=== PATIENT | male | born 1985 | race Caucasian/White ===

== ENCOUNTER 2017-11-07 19:53 | Emergency (ER) | payer SELFPAY ==
[2017-11-07] MEDS ORDERED: NA CHLORIDE 0.9% 1,000 ML ONE (20:11)
[2017-11-07 20:36] LABS: Absolute Lymphocytes (CBC) 2.5 K/uL (0.7-4.9); Absolute Monocytes 0.6 K/uL (0.1-1.3); Absolute Neutrophil 5.7 K/uL (1.8-8.0); Basophils % 0.5 % (0-1.3); Eosinophils % 5.1 % (0-4.4); Hematocrit 39.3 % (39.6-49.0); Lymphocytes % 27.2 % (15.3-44.8); MCH 31.2 pg (27.0-35.0); MCV 91.7 fL (80-100); MPV 7.4 fL (7.6-11.3); Monocytes % 6.4 % (3.3-12.3); RBC Red Blood Cell Count 4.29 M/uL (4.33-5.43)
[2017-11-07 20:44] LABS: Bicarbonate 26 mEq/L (21-31); Glucose Level 99 mg/dL (65-120); Potassium 3.8 mEq/L (3.6-5.0); Sodium Level 137 mEq/L (135-145)
[2017-11-07 20:45] LABS: BUN Blood Urea Nitrogen 19 mg/dL (6-20)
[2017-11-07 20:52] LABS: Urine Bacteria NONE SEEN /HPF (NONE SEEN); Urine Culture Reflex Order NOT NEEDED; Urine RBC LOADED /HPF (NONE SEEN)
[2017-11-07 20:53] LABS: Urine Blood 3+ (NEG); Urine Glucose NEGATIVE (NEG); Urine Protein 2+ (NEG); Urine Specific Gravity 1.025 (1.005-1.030)
--- NOTE | 2017-11-07 21:32 | RAD REPORT ---
EXAM DESCRIPTION: CT - Abdomen Pelvis W Contrast - 11/07/2017 9:18 pm CLINICAL HISTORY: Abdominal pain, hematuria COMPARISON: None. TECHNIQUE: Biphasic, helical CT imaging of the abdomen and pelvis was performed following 100 ml non -ionic IV contrast. Oral contrast was given. All CT scans are performed using dose optimization technique as appropriate and may include automated exposure control or mA/KV adjustment according to patient size. FINDINGS: No suspicious findings in the lung bases. The liver, spleen, and pancreas show no suspicious findings. Gallbladder and biliary tree are also wi thout suspicious finding. Symmetric renal function is seen with no hydronephrosis or suspicious renal mass. No dilated bowel loops or bowel wall thickening. Appendix is normal. No free air, free fluid or infla mmatory stranding. No hernia, mass or bulky lymphadenopathy. The urinary bladder is without signific ant finding. No adrenal abnormality. No suspicious bony findings. IMPRESSION: Contrast enhanced CT abdomen and pelvis showing no significant or suspicious finding.
--- NOTE | 2017-11-07 21:38 | ER ---
Nurse's Notes [facility] Name: John Peralta Age: 32 yrs Sex: Male : 1985 Arrival Date: 11/07/2017 Time: 19:56 Bed 28 Private MD: Diagnosis: Hematuria Presentation: 11/07 19:58 Presenting complaint: Patient states: lower abd pain and blood in urine since 1500 la1 today. Transition of care: patient was not received from another setting of care. Onset of symptoms was November 07, 2017. Initial Sepsis Screen: Does the patient meet any 2 criteria? No. Patient's initial sepsis screen is negative. Does the patient have a suspected source of infection? No. Patient's initial sepsis screen is negative. Care prior to arrival: None. 19:58 Method Of Arrival: Ambulatory la1 19:58 Acuity: YUKI 3 la1 Historical: - Allergies: 19:58 Sulfa (Sulfonamide Antibiotics); la1 - PMHx: 19:58 None; la1 - Immunization history:: Adult Immunizations up to date. - Social history:: Smoking status: Patient uses tobacco products, smokes one pack cigarettes per day. Screenin:10 Abuse screen: Denies threats or abuse. Denies injuries from another. Nutritional lk1 screening: No deficits noted. Tuberculosis screening: No symptoms or risk factors identified. Fall Risk None identified. Assessment: 20:15 General: Appears in no apparent distress. Behavior is calm, cooperative, appropriate lk1 for age. Pain: Denies pain. Neuro: Level of Consciousness is awake, alert, obeys commands, Oriented to person, place, time, situation. Cardiovascular: Heart tones S1 S2 present Capillary refill is brisk Patient's skin is warm and dry. Respiratory: Airway is patent Respiratory effort is even, unlabored, Respiratory pattern is regular, symmetrical, Breath sounds are clear bilaterally. GI: Abdomen is non-distended, Bowel sounds present X 4 quads. : Reports dark urine starting a few hours ago at work and worsening after getting home. EENT: No signs and/or symptoms were reported regarding the EENT system. Derm: No signs and/or symptoms reported regarding the dermatologic system. Musculoskeletal: No signs and/or symptoms reported regarding the musculoskeletal system. Vital Signs: 19:58 BP 164 / 84; Pulse 87; Resp 19; Temp 98.1(TE); Pulse Ox 100% on R/A; Weight 102.06 kg; la1 Height 5 ft. 11 in. (180.34 cm); 21:30 BP 121 / 74; Pulse 75; Resp 14; Pulse Ox 100% on R/A; Pain 0/10; lk1 19:58 Body Mass Index 31.38 (102.06 kg, 180.34 cm) la1 ED Course: 19:56 Patient arrived in ED. es 19:58 Triage completed. la1 19:59 Arm band placed on right wrist. la1 20:01 Jean Ellison MD is Attending Physician. pkl 20:08 Elvira Dowell, ISABEL is Primary Nurse. lk1 20:20 Inserted saline lock: 22 gauge in right antecubital area, using aseptic technique. lk1 21:12 Patient has correct armband on for positive identification. Bed in low position. Call lk1 light in reach. 21:17 CT completed. Patient moved to CT via wheelchair. Patient moved back from CT. cw1 21:18 CT Abd/Pelvis - W/Contrast In Process Unspecified. EDMS 21:37 Deric Galicia MD is Referral Physician. pkl 22:14 No provider procedures requiring assistance completed. IV discontinued, intact, lk1 bleeding controlled, No redness/swelling at site. Pressure dressing applied. Administered Medications: 20:20 Drug: NS 0.9% 1000 ml Route: IV; Rate: 1000 ml; Site: right antecubital; lk1 21:40 Follow up: IV Status: Completed infusion lk1 21:40 Drug: Rocephin - (cefTRIAXone) 1 grams Route: IVPB; Infused Over: 30 mins; Site: right lk1 antecubital; 22:10 Follow up: Response: No adverse reaction; IV Status: Completed infusion lk1 Outcome: 21:37 Discharge ordered by . pkl 22:13 Discharged to home ambulatory. lk1 22:13 Condition: good 22:13 Discharge instructions given to patient, Instructed on discharge instructions, follow up and referral plans. medication usage, safety practices, Demonstrated understanding of instructions, follow-up care, medications, Prescriptions given X 1. 22:16 Patient left the ED. lk1 Signatures: Dispatcher [employer] EDMS Jean Ellison MD MD pkl Beverly Leo Crystal cw1 Kirit Velazco RN RN la Elvira Dowell, RN RN lk1
--- NOTE | 2017-11-07 21:38 | EDPHYS ---
Physician Documentation [facility] Name: John Peralta Age: 32 yrs Sex: Male : 1985 Arrival Date: 11/07/2017 Time: 19:56 Bed 28 Private MD: ED Physician Jean Ellison HPI: 11/07 20:09 This 32 yrs old Male presents to ER via Ambulatory with complaints of BLOOD pkl IN URINE. 20:09 The patient presents with urinary symptoms, urinary frequency, bloody urine. Onset: The pkl symptoms/episode began/occurred just prior to arrival, 4 hour(s) ago. Associated signs and symptoms: The patient has no apparent associated signs or symptoms. The patient has experienced a previous episode, approximately 4 years ago. Historical: - Allergies: 19:58 Sulfa (Sulfonamide Antibiotics); la1 - PMHx: 19:58 None; la1 - Immunization history:: Adult Immunizations up to date. - Social history:: Smoking status: Patient uses tobacco products, smokes one pack cigarettes per day. ROS: 20:09 Eyes: Negative for injury, pain, redness, and discharge, ENT: Negative for injury, pkl pain, and discharge, Neck: Negative for injury, pain, and swelling, Cardiovascular: Negative for chest pain, palpitations, and edema, Respiratory: Negative for shortness of breath, cough, wheezing, and pleuritic chest pain, Abdomen/GI: Negative for abdominal pain, nausea, vomiting, diarrhea, and constipation, Back: Negative for injury and pain. 20:09 : Positive for urinary symptoms, urinary frequency, hematuria. 20:09 MS/extremity: Negative for acute changes. 20:09 Skin: Negative for rash. 20:09 Neuro: Negative for altered mental status. Exam: 20:09 Head/Face: Normocephalic, atraumatic. Eyes: Pupils equal round and reactive to light, pkl extra-ocular motions intact. Lids and lashes normal. Conjunctiva and sclera are non-icteric and not injected. Cornea within normal limits. Periorbital areas with no swelling, redness, or edema. ENT: Nares patent. No nasal discharge, no septal abnormalities noted. Tympanic membranes are normal and external auditory canals are clear. Oropharynx with no redness, swelling, or masses, exudates, or evidence of obstruction, uvula midline. Mucous membranes moist. Neck: Trachea midline, no thyromegaly or masses palpated, and no cervical lymphadenopathy. Supple, full range of motion without nuchal rigidity, or vertebral point tenderness. No Meningismus. Chest/axilla: Normal chest wall appearance and motion. Nontender with no deformity. No lesions are appreciated. Cardiovascular: Regular rate and rhythm with a normal S1 and S2. No gallops, murmurs, or rubs. Normal PMI, no JVD. No pulse deficits. Respiratory: Lungs have equal breath sounds bilaterally, clear to auscultation and percussion. No rales, rhonchi or wheezes noted. No increased work of breathing, no retractions or nasal flaring. Abdomen/GI: Soft, non-tender, with normal bowel sounds. No distension or tympany. No guarding or rebound. No evidence of tenderness throughout. Back: No spinal tenderness. No costovertebral tenderness. Full range of motion. Skin: Warm, dry with normal turgor. Normal color with no rashes, no lesions, and no evidence of cellulitis. MS/ Extremity: Pulses equal, no cyanosis. Neurovascular intact. Full, normal range of motion. Neuro: Awake and alert, GCS 15, oriented to person, place, time, and situation. Cranial nerves II-XII grossly intact. Motor strength 5/5 in all extremities. Sensory grossly intact. Cerebellar exam normal. Normal gait. 20:09 : Bladder: is normal, non-distended, non-tender. Vital Signs: 19:58 BP 164 / 84; Pulse 87; Resp 19; Temp 98.1(TE); Pulse Ox 100% on R/A; Weight 102.06 kg; la1 Height 5 ft. 11 in. (180.34 cm); 21:30 BP 121 / 74; Pulse 75; Resp 14; Pulse Ox 100% on R/A; Pain 0/10; lk1 19:58 Body Mass Index 31.38 (102.06 kg, 180.34 cm) la1 MDM: 20:01 Patient medically screened. pkl 21:36 Data reviewed: vital signs, nurses notes, lab test result(s), radiologic studies, CT pkl scan. 11/07 20:08 Order name: CBC with Diff; Complete Time: 20:43 pkl 11/07 20:08 Order name: Chem 7; Complete Time: 20:45 pkl 11/07 20:08 Order name: Urine Culture lk1 11/07 20:08 Order name: Urine Microscopic Only; Complete Time: 21:24 lk1 11/07 20:49 Order name: Urine Dipstick--Ancillary (enter results) 2 11/07 20:50 Order name: Urine Dipstick-Ancillary; Complete Time: 21:24 EDMS 11/07 20:09 Order name: IV Start; Complete Time: 20:39 lk1 11/07 20:46 Order name: CT Abd/Pelvis - W/Contrast; Complete Time: 21:34 pkl Administered Medications: 20:20 Drug: NS 0.9% 1000 ml Route: IV; Rate: 1000 ml; Site: right antecubital; lk1 21:40 Follow up: IV Status: Completed infusion lk1 21:40 Drug: Rocephin - (cefTRIAXone) 1 grams Route: IVPB; Infused Over: 30 mins; Site: right lk1 antecubital; 22:10 Follow up: Response: No adverse reaction; IV Status: Completed infusion lk1 Disposition: 11/07/17 21:37 Discharged to Home. Impression: Hematuria. - Condition is Stable. - Prescriptions for Cipro 500 mg Oral Tablet - take 1 tablet by ORAL route every 12 hours for 5 days; 10 tablet. - Medication Reconciliation Form, Thank You Letter, Antibiotic Education, Prescription Opioid Use form. - Follow up: Deric Galicia MD; When: 2 - 3 days; Reason: Re-evaluation by your physician. - Problem is new. - Symptoms have improved. Signatures: Dispatcher [employer] [facility] Jean Ellison MD MD pkl Kirit Velazco RN RN la1 Elvira Dowell RN RN lk1 Corrections: (The following items were deleted from the chart) 22:16 21:37 11/07/2017 21:37 Discharged to Home. Impression: Hematuria. Condition is Stable. lk1 Forms are Medication Reconciliation Form, Thank You Letter, Antibiotic Education, Prescription Opioid Use. Follow up: Deric Galicia; When: 2 - 3 days; Reason: Re-evaluation by your physician. Problem is new. Symptoms have improved. pkl
[2017-11-07] MEDS ORDERED: CEFTRIAXONE/SWI 1gm 1 GM/10 ML SYR ONE (21:45)
== END 2017-11-07 22:16 | disposition home or self-care (01) ==
LOC: ER 19:53
DX: R31.9 Hematuria, unspecified (principal); F17.210 Nicotine dependence, cigarettes, uncomplicated; Z88.2 Allergy status to sulfonamides
CPT/HCPCS: 36415; 74177; 80048; 81003; 81015; 85025; 87086; 87088; 96361; 96365; 99284; J0696; J7030; Q9967

== ENCOUNTER 2017-12-11 10:25 | Emergency (ER) | payer SELFPAY ==
--- NOTE | 2017-12-11 10:40 | EDPHYS ---
Physician Documentation [facility] Name: John Peralta Age: 32 yrs Sex: Male : 1985 Arrival Date: 12/11/2017 Time: 10:27 Bed 12 Private MD: None, None ED Physician Emil Lopez HPI: 12/11 10:37 This 32 yrs old Male presents to ER via Ambulatory with complaints of rn Toothache. 10:37 The patient presents with pain. The problem is located in the mouth. Onset: The rn symptoms/episode began/occurred yesterday. Duration: The symptoms are intermittent. Severity of symptoms: At their worst the symptoms were moderate, in the emergency department the symptoms are unchanged. The patient has experienced similar episodes in the past. Reports left upper toothache for a couple of days, no fever, has dentist appt for December 21, no swelling, hurts to chew.. Historical: - Allergies: 10:30 Sulfa (Sulfonamide Antibiotics); sv - Home Meds: 10:30 None [Active]; sv - PMHx: 10:30 None; sv - PSHx: 10:30 None; sv - Immunization history:: Adult Immunizations up to date. - Social history:: Smoking status: Patient uses tobacco products, smokes one pack cigarettes per day. - Ebola Screening: : No symptoms or risks identified at this time. - Family history:: not pertinent. - Hospitalizations: : No recent hospitalization is reported. ROS: 10:37 Constitutional: Negative for fever, chills, and weight loss, ENT: + left upper dental rn pain Exam: 10:37 Constitutional: This is a well developed, well nourished patient who is awake, alert, rn and in no acute distress. ENT: No oral evidence of abscess, + poor general dentition, + cracked teeth throughout Vital Signs: 10:30 BP 125 / 80; Pulse 77; Resp 18; Temp 98.1; Pulse Ox 98% ; Weight 99.79 kg; Height 5 ft. sv 11 in. (180.34 cm); Pain 8/10; 10:30 Body Mass Index 30.68 (99.79 kg, 180.34 cm) sv MDM: 10:32 Patient medically screened. rn 10:37 Differential diagnosis: dental caries. Data reviewed: vital signs, nurses notes, and as rn a result, I will discharge patient. Counseling: I had a detailed discussion with the patient and/or guardian regarding: the historical points, exam findings, and any diagnostic results supporting the discharge/admit diagnosis, the need for outpatient follow up, to return to the emergency department if symptoms worsen or persist or if there are any questions or concerns that arise at home. Special discussion: I discussed with the patient/guardian in detail that at this point there is no indication for admission to the hospital. It is understood, however, that if the symptoms persist or worsen the patient needs to return immediately for re-evaluation. Based on the history and exam findings, there is no indication for further emergent testing or inpatient evaluation. I discussed with the patient/guardian the need to see a dentist for further evaluation of the symptoms. Administered Medications: No medications were administered Disposition: 12/11/17 10:40 Discharged to Home. Impression: Dental caries. - Condition is Stable. - Discharge Instructions: Dental Pain. - Prescriptions for Clindamycin HCl 300 mg Oral Capsule - take 1 capsule by ORAL route every 6 hours for 10 days; 40 capsule. Ibuprofen 800 mg Oral Tablet - take 1 tablet by ORAL route every 12 hours As needed take with food; 20 tablet. - Work release form, Medication Reconciliation Form, Thank You Letter, Antibiotic Education, Prescription Opioid Use form. - Follow up: Private Physician; When: As needed; Reason: Recheck today's complaints, Re-evaluation by your physician. - Problem is an ongoing problem. - Symptoms have improved. Signatures: Romi Weems RN RN Emil Lopez MD MD rn Corrections: (The following items were deleted from the chart) 11:11 10:40 12/11/2017 10:40 Discharged to Home. Impression: Dental caries. Condition is sv Stable. Forms are Medication Reconciliation Form, Thank You Letter, Antibiotic Education, Prescription Opioid Use. Follow up: Private Physician; When: As needed; Reason: Recheck today's complaints, Re-evaluation by your physician. Problem is an ongoing problem. Symptoms have improved. rn
--- NOTE | 2017-12-11 10:40 | ER ---
Nurse's Notes [facility] Name: John Peralta Age: 32 yrs Sex: Male : 1985 Arrival Date: 12/11/2017 Time: 10:27 Bed 12 Private MD: None, None Diagnosis: Dental caries Presentation: 12/11 10:29 Presenting complaint: Patient states: "Part of my tooth broke off a couple of weeks sv ago.". Transition of care: patient was not received from another setting of care. Onset of symptoms was November 2017. Risk Assessment: Do you want to hurt yourself or someone else? Patient reports no desire to harm self or others. Initial Sepsis Screen: Does the patient meet any 2 criteria? No. Patient's initial sepsis screen is negative. Does the patient have a suspected source of infection? No. Patient's initial sepsis screen is negative. Care prior to arrival: None. 10:29 Method Of Arrival: Ambulatory sv 10:29 Acuity: YUKI 4 sv Triage Assessment: 10:29 General: Appears in no apparent distress. comfortable, Behavior is calm, cooperative, sv appropriate for age. Pain: Complains of pain in mouth Pain currently is 8 out of 10 on a pain scale. Pain began "a couple of weeks ago". EENT: Reports tooth pain. Neuro: Level of Consciousness is awake, alert, obeys commands, Oriented to person, place, time, situation, Moves all extremities. Full function Gait is steady. Respiratory: Respiratory effort is even, unlabored, Respiratory pattern is regular, symmetrical. GI: No signs and/or symptoms were reported involving the gastrointestinal system. : No signs and/or symptoms were reported regarding the genitourinary system. Derm: Skin is pink, warm \\T\\ dry. Musculoskeletal: No signs and/or symptoms reported regarding the musculoskeletal system. Historical: - Allergies: 10:30 Sulfa (Sulfonamide Antibiotics); sv - Home Meds: 10:30 None [Active]; sv - PMHx: 10:30 None; sv - PSHx: 10:30 None; sv - Immunization history:: Adult Immunizations up to date. - Social history:: Smoking status: Patient uses tobacco products, smokes one pack cigarettes per day. - Ebola Screening: : No symptoms or risks identified at this time. - Family history:: not pertinent. - Hospitalizations: : No recent hospitalization is reported. Screenin:35 Abuse screen: Denies threats or abuse. Denies injuries from another. Nutritional sv screening: No deficits noted. Tuberculosis screening: No symptoms or risk factors identified. Fall Risk None identified. Vital Signs: 10:30 BP 125 / 80; Pulse 77; Resp 18; Temp 98.1; Pulse Ox 98% ; Weight 99.79 kg; Height 5 ft. sv 11 in. (180.34 cm); Pain 8/10; 10:30 Body Mass Index 30.68 (99.79 kg, 180.34 cm) sv ED Course: 10:27 Patient arrived in ED. mr 10:27 None, None is Private Physician. mr 10:29 Triage completed. sv 10:30 Arm band placed on left wrist. sv 10:32 Emil Lopez MD is Attending Physician. rn 10:35 Patient has correct armband on for positive identification. Call light in reach. Door sv closed. 10:50 No provider procedures requiring assistance completed. Patient did not have IV access sv during this emergency room visit. 11:11 Romi Weems RN is Primary Nurse. sv Administered Medications: No medications were administered Outcome: 10:40 Discharge ordered by . rn 10:50 Patient left the ED. sv 10:50 Discharged to home ambulatory. sv 10:50 Condition: stable 10:50 Discharge instructions given to patient, Instructed on discharge instructions, follow up and referral plans. medication usage, Demonstrated understanding of instructions, follow-up care, medications, Prescriptions given X 2. Signatures: Romi Weems RN RN Ana Luisa Hernandez mr Emil Lopez MD MD overnight babysitter: (The following items were deleted from the chart) 12:02 11:11 Patient left the ED. sv sv
== END 2017-12-11 11:11 | disposition home or self-care (01) ==
LOC: ER 10:25
DX: K02.9 Dental caries, unspecified (principal); F17.210 Nicotine dependence, cigarettes, uncomplicated; Z88.2 Allergy status to sulfonamides
CPT/HCPCS: 99282

== ENCOUNTER 2017-12-27 22:00 | Emergency (ER) | payer SELFPAY ==
[2017-12-27] MEDS ORDERED: LIDOCAINE 1% MPF 5 ML VIAL ONE (22:48)
--- NOTE | 2017-12-27 23:24 | EDPHYS ---
Physician Documentation [facility] Name: John Peralta Age: 32 yrs Sex: Male : 1985 Arrival Date: 12/27/2017 Time: 22:04 Bed 24 Private MD: ED Physician Puneet Key HPI: 12/27 23:02 This 32 yrs old Male presents to ER via Ambulatory with complaints of jr8 swelling. 23:02 The patient presents with an abscess of the buttocks. Description: The affected area is jr8 small, well demarcated, draining, erythematous, swollen, tense, warm. Onset: The symptoms/episode began/occurred 2 day(s) ago. Possible cause(s): unknown. Associated signs and symptoms: The patient has no apparent associated signs or symptoms. Modifying factors: the symptoms are alleviated by nothing, the symptoms are aggravated by pressure, sitting, squeezing the lesion and expressing the contents, touching. Severity of symptoms: At their worst the symptoms were mild, in the emergency department the symptoms are unchanged. The patient has not experienced similar symptoms in the past. The patient has not recently seen a physician. Historical: - Allergies: 22:19 Sulfa (Sulfonamide Antibiotics); aj1 - Home Meds: 22:19 Amoxicillin Oral [Active]; aj1 - PMHx: 22:19 None; aj1 - PSHx: 22:19 None; aj1 - Immunization history:: Flu vaccine is not up to date. - Social history:: Smoking status: Patient uses tobacco products, smokes one pack cigarettes per day. - Ebola Screening: : Patient denies travel to an Ebola-affected area in the 21 days before illness onset. ROS: 23:02 Eyes: Negative for injury, pain, redness, and discharge, ENT: Negative for injury, jr8 pain, and discharge, Neck: Negative for injury, pain, and swelling, Cardiovascular: Negative for chest pain, palpitations, and edema, Respiratory: Negative for shortness of breath, cough, wheezing, and pleuritic chest pain, Abdomen/GI: Negative for abdominal pain, nausea, vomiting, diarrhea, and constipation, Back: Negative for injury and pain, MS/Extremity: Negative for injury and deformity, Neuro: Negative for headache, weakness, numbness, tingling, and seizure. 23:02 Skin: Positive for abscess, of the buttocks. Exam: 23:02 Cardiovascular: Regular rate and rhythm with a normal S1 and S2. No gallops, murmurs, jr8 or rubs. Normal PMI, no JVD. No pulse deficits. Respiratory: Lungs have equal breath sounds bilaterally, clear to auscultation and percussion. No rales, rhonchi or wheezes noted. No increased work of breathing, no retractions or nasal flaring. Back: No spinal tenderness. No costovertebral tenderness. Full range of motion. MS/ Extremity: Pulses equal, no cyanosis. Neurovascular intact. Full, normal range of motion. Neuro: Awake and alert, GCS 15, oriented to person, place, time, and situation. Cranial nerves II-XII grossly intact. Motor strength 5/5 in all extremities. Sensory grossly intact. Cerebellar exam normal. Normal gait. 23:02 Skin: abscess, that is small, approximately 2.5 cm(s), of the left upper gluteral cleft , with drainage, with fluctuance, with induration, with pointing. Vital Signs: 22:19 BP 142 / 89; Pulse 74; Resp 18; Temp 98.2; Pulse Ox 99% on R/A; Weight 102.06 kg (R); aj1 Height 5 ft. 11 in. (180.34 cm) (R); Pain 10/10; 23:32 BP 138 / 64; Pulse 72; Resp 18; Pulse Ox 100% ; kr2 22:19 Body Mass Index 31.38 (102.06 kg, 180.34 cm) aj Procedures: 23:22 I \T\ D: Incision and drainage was performed for an abscess of the right buttocks Prepped jr8 with Betadine, Anesthetized with 3 ml's 1% Lidocaine. Incised with #10 blade. Drained small amount purulent fluid. serosanguinous fluid. bloody fluid. Loculations removed. Abscess cavity explored. Packed with iodoform gauze, Dressing: sterile 4x4 gauze, the patient tolerated the procedure well. MDM: 22:32 Patient medically screened. [facility] 23:22 Data reviewed: vital signs, nurses notes, and as a result, I will discharge patient. [facility] Data interpreted: Pulse oximetry: on room air is 99 %. Interpretation: normal. Counseling: I had a detailed discussion with the patient and/or guardian regarding: the historical points, exam findings, and any diagnostic results supporting the discharge/admit diagnosis, the need for outpatient follow up, a family practitioner, to return to the emergency department if symptoms worsen or persist or if there are any questions or concerns that arise at home. 12/27 22:50 Order name: I\T\D Setup; Complete Time: 23:05 jr8 Administered Medications: 23:18 Drug: Lidocaine (1 %) 5 mg {Note: administered by PA. Andrew} Route: Infiltration; kr2 23:26 Drug: TORadol 60 mg Route: IM; Site: right gluteus; kr2 23:33 Follow up: Response: No adverse reaction kr2 Disposition: 12/28 09:29 Co-signature as Attending Physician, Puneet Key MD I agree with the assessment and georgina plan of care. Disposition: 12/27/17 23:23 Discharged to Home. Impression: Cutaneous abscess of buttock. - Condition is Stable. - Discharge Instructions: Abscess, Incision and Drainage. - Prescriptions for Clindamycin HCl 300 mg Oral Capsule - take 1 capsule by ORAL route every 6 hours for 10 days; 40 capsule. - Medication Reconciliation Form, Thank You Letter, Antibiotic Education, Prescription Opioid Use form. - Follow up: Private Physician; When: 48 Hours; Reason: Wound Recheck, Recheck today's complaints, Continuance of care, Re-evaluation by your physician. - Problem is new. - Symptoms have improved. Signatures: Amada Costello, RN RN aj1 Puneet Key MD MD cha Roszak, Josh, PA PA jr8 Isis Kim RN RN kr2 Corrections: (The following items were deleted from the chart) 12/27 23:34 23:23 12/27/2017 23:23 Discharged to Home. Impression: Cutaneous abscess of buttock. kr2 Condition is Stable. Forms are Medication Reconciliation Form, Thank You Letter, Antibiotic Education, Prescription Opioid Use. Follow up: Private Physician; When: 48 Hours; Reason: Wound Recheck, Recheck today's complaints, Continuance of care, Re-evaluation by your physician. Problem is new. Symptoms have improved. jr8
--- NOTE | 2017-12-27 23:24 | ER ---
Nurse's Notes [facility] Name: John Peralta Age: 32 yrs Sex: Male : 1985 Arrival Date: 12/27/2017 Time: 22:04 Bed 24 Private MD: Diagnosis: Cutaneous abscess of buttock Presentation: 12/27 22:16 Presenting complaint: Patient states: "I have a boil or a spider bite on my lower back, aj1 It started yesterday. I soaked in a warm bath and it started draining. It hurts a lot when I sit." Small abscess noted to gluteal cleft. Patient states that he is currently taking Amoxicillin because he recently had 4 teeth removed. Transition of care: patient was not received from another setting of care. Onset of symptoms was December 26, 2017. Risk Assessment: Do you want to hurt yourself or someone else? Patient reports no desire to harm self or others. Initial Sepsis Screen: Does the patient meet any 2 criteria? No. Patient's initial sepsis screen is negative. Does the patient have a suspected source of infection? No. Patient's initial sepsis screen is negative. Care prior to arrival: None. 22:16 Method Of Arrival: Ambulatory aj1 22:16 Acuity: YUKI 4 aj1 Triage Assessment: 22:19 General: Appears in no apparent distress. comfortable, Behavior is calm, cooperative, aj1 appropriate for age. Pain: Complains of pain in coccyx Pain currently is 10 out of 10 on a pain scale. Neuro: Level of Consciousness is awake, alert, obeys commands. Cardiovascular: Patient's skin is warm and dry. Respiratory: Airway is patent Respiratory effort is even, unlabored, Respiratory pattern is regular, symmetrical. Derm: Abscess located on coccyx is nickel sized, has purulent drainage, is red, is raised. Historical: - Allergies: 22:19 Sulfa (Sulfonamide Antibiotics); aj1 - Home Meds: 22:19 Amoxicillin Oral [Active]; aj1 - PMHx: 22:19 None; aj1 - PSHx: 22:19 None; aj1 - Immunization history:: Flu vaccine is not up to date. - Social history:: Smoking status: Patient uses tobacco products, smokes one pack cigarettes per day. - Ebola Screening: : Patient denies travel to an Ebola-affected area in the 21 days before illness onset. Screenin:23 Abuse screen: Denies threats or abuse. Denies injuries from another. Nutritional kr2 screening: No deficits noted. Tuberculosis screening: No symptoms or risk factors identified. Fall Risk None identified. Assessment: 22:30 General: Appears in no apparent distress. uncomfortable, well groomed, well developed, kr2 well nourished, Behavior is calm, cooperative, appropriate for age. Pain: Complains of pain in coccyx Pain radiates to buttocks Pain currently is 5 out of 10 on a pain scale. at worst was 10 out of 10 on a pain scale. Quality of pain is described as sharp, tender, Is continuous, Alleviated by rest, repositioning, heat application, Aggravated by sitting Noted to be grimacing. Neuro: Level of Consciousness is awake, alert, obeys commands, Oriented to person, place, time, situation, Appropriate for age. Cardiovascular: Capillary refill < 3 seconds in bilateral fingers Patient's skin is warm and dry. Respiratory: Airway is patent Respiratory effort is even, unlabored, Respiratory pattern is regular, symmetrical. GI: Abdomen is flat, non-distended. : No signs and/or symptoms were reported regarding the genitourinary system. Derm: Skin is healthy with good turgor, Skin is pink, warm \\T\\ dry. Abscess located on coccyx is quarter sized, has no drainage, is red, is raised. Musculoskeletal: Circulation, motion, and sensation intact. 23:33 Reassessment: Patient appears in no apparent distress at this time. Patient and/or kr2 family updated on plan of care and expected duration. Pain level reassessed. Patient is alert, oriented x 3, equal unlabored respirations, skin warm/dry/pink. Wound packed and dressed by BRE Morales. Vital Signs: 22:19 BP 142 / 89; Pulse 74; Resp 18; Temp 98.2; Pulse Ox 99% on R/A; Weight 102.06 kg (R); aj1 Height 5 ft. 11 in. (180.34 cm) (R); Pain 10/10; 23:32 BP 138 / 64; Pulse 72; Resp 18; Pulse Ox 100% ; kr2 22:19 Body Mass Index 31.38 (102.06 kg, 180.34 cm) aj1 ED Course: 22:04 Patient arrived in ED. al2 22:18 Triage completed. aj1 22:19 Arm band placed on Patient placed in an exam room. aj1 22:27 Isis Kim, RN is Primary Nurse. kr2 22:29 Suresh Ivory PA is PHCP. jr8 22:29 Puneet Key MD is Attending Physician. jr8 22:30 Patient has correct armband on for positive identification. Bed in low position. Call kr2 light in reach. Side rails up X 1. Pulse ox on. NIBP on. 23:28 No provider procedures requiring assistance completed. Patient did not have IV access kr2 during this emergency room visit. Administered Medications: 23:18 Drug: Lidocaine (1 %) 5 mg {Note: administered by BRE Morales.} Route: Infiltration; kr2 23:26 Drug: TORadol 60 mg Route: IM; Site: right gluteus; kr2 23:33 Follow up: Response: No adverse reaction kr2 Outcome: 23:23 Discharge ordered by MD. jr8 23:28 Discharged to home ambulatory. kr2 23:28 Condition: good 23:28 Discharge instructions given to patient, Instructed on discharge instructions, follow up and referral plans. medication usage, Demonstrated understanding of instructions, follow-up care, medications, Prescriptions given X 1. 23:34 Patient left the ED. kr2 Signatures: Amada Costello RN RN aj1 Suresh Ivory PA PA jr8 Isis Kim, RN RN kr2 Lanie Reyes al2 Corrections: (The following items were deleted from the chart) 22:19 22:16 Presenting complaint: Patient states: "I have a boil or a spider bite on my lower aj1 back, It started yesterday. I soaked in a warm bath and it started draining. It hurts a lot when I sit." Small abscess noted to gluteal cleft aj1
[2017-12-27] MEDS ORDERED: KETOROLAC 30 MG/ML INJ ONE (23:27)
== END 2017-12-27 23:34 | disposition home or self-care (01) ==
LOC: ER 22:00
PROC: 0H98XZZ Drainage of Buttock Skin, External Approach (ICD-10-PCS; principal; 2017-12-27)
DX: L02.31 Cutaneous abscess of buttock (principal); F17.210 Nicotine dependence, cigarettes, uncomplicated; Z88.2 Allergy status to sulfonamides
CPT/HCPCS: 96372; 99283

== ENCOUNTER 2018-01-12 11:51 | Emergency (ER) | payer SELFPAY ==
--- NOTE | 2018-01-12 13:07 | ER ---
Nurse's Notes [facility] Name: John Peralta Age: 32 yrs Sex: Male : 1985 Arrival Date: 01/12/2018 Time: 11:53 Bed 12 Private MD: None, None Diagnosis: Dental caries on smooth surface penetrating into dentin;Dental caries on smooth surface penetrating into pulp Presentation: 01/12 12:02 Presenting complaint: Patient states: Broken tooth with pain to right lower jaw for 2 aj days. Transition of care: patient was not received from another setting of care. Onset of symptoms was January 10, 2018. Risk Assessment: Do you want to hurt yourself or someone else? Patient reports no desire to harm self or others. Initial Sepsis Screen: Does the patient meet any 2 criteria? No. Patient's initial sepsis screen is negative. Does the patient have a suspected source of infection? No. Patient's initial sepsis screen is negative. Care prior to arrival: None. 12:02 Method Of Arrival: Ambulatory 12:02 Acuity: YUKI 5 aj Triage Assessment: 12:03 General: Appears in no apparent distress. comfortable, Behavior is calm, cooperative, aj appropriate for age. Pain: Complains of pain in right mandible. EENT: Reports pain in right mandible. Neuro: Level of Consciousness is awake, alert, obeys commands, Oriented to person, place, time, situation, Appropriate for age. Respiratory: Airway is patent Respiratory effort is even, unlabored, Respiratory pattern is regular, symmetrical. Derm: Skin is intact, is healthy with good turgor, Skin is pink, warm \T\ dry. normal. Historical: - Allergies: 12:03 Sulfa (Sulfonamide Antibiotics); aj - Home Meds: 12:03 None [Active]; aj - PMHx: 12:03 None; aj - PSHx: 12:03 None; aj - Immunization history:: Adult Immunizations up to date. - Social history:: Smoking status: Patient uses tobacco products, smokes one pack cigarettes per day. - Ebola Screening: : Patient negative for fever greater than or equal to 101.5 degrees Fahrenheit, and additional compatible Ebola Virus Disease symptoms Patient denies exposure to infectious person Patient denies travel to an Ebola-affected area in the 21 days before illness onset No symptoms or risks identified at this time. Screenin:04 Abuse screen: Denies threats or abuse. Denies injuries from another. Nutritional ss screening: No deficits noted. Tuberculosis screening: Never had TB. Fall Risk None identified. Assessment: 13:04 General: Appears in no apparent distress. comfortable, Behavior is calm, cooperative, ss Denies fever, feeling ill, fatigue, chills. Pain: Complains of pain in right mandible. Neuro: Level of Consciousness is awake, alert, obeys commands, Oriented to person, place, time, situation. Cardiovascular: Capillary refill < 3 seconds is brisk in bilateral fingers. Respiratory: Airway is patent Respiratory effort is even, unlabored, Respiratory pattern is regular, symmetrical. GI: No signs and/or symptoms were reported involving the gastrointestinal system. EENT: Nares are clear Oral mucosa is moist. Derm: Skin is intact, is healthy with good turgor, Skin is dry, Skin is pink, warm \T\ dry. normal. Musculoskeletal: Circulation, motion, and sensation intact. Capillary refill < 3 seconds, is brisk, in bilateral fingers. Range of motion: intact in all extremities, Swelling absent. Vital Signs: 12:03 BP 128 / 77; Pulse 89; Resp 19; Temp 98.6; Pulse Ox 99% on R/A; Weight 104.33 kg; aj Height 5 ft. 11 in. (180.34 cm); 12:03 Body Mass Index 32.08 (104.33 kg, 180.34 cm) aj ED Course: 11:53 Patient arrived in ED. sb2 11:54 None, None is Private Physician. sb2 12:03 Triage completed. aj 12:03 Arm band placed on left wrist. Patient placed in waiting room, Patient notified of wait aj time. 12:46 Adia Stahl FNP-C is [facility]. snw 12:46 Emil Lopez MD is Attending Physician. snw 13:03 Sara Bartlett RN is Primary Nurse. ss 13:04 Patient has correct armband on for positive identification. Bed in low position. Call ss light in reach. 13:04 No provider procedures requiring assistance completed. Patient did not have IV access ss during this emergency room visit. Administered Medications: 13:15 Drug: [place] 10 mg-325 mg 1 tabs Route: PO; ss 13:39 Follow up: Response: Adverse reaction, Physician notified; Pain is decreased ss 13:15 Drug: Zofran 4 mg Route: PO; ss 13:39 Follow up: Response: No adverse reaction 13:21 Drug: Clindamycin 600 mg {Note: 2 mL given in R gluteus and 2 mL given in R gluteus.} ss Route: IM; Site: left gluteus; 13:39 Follow up: Response: No adverse reaction ss Outcome: 13:06 Discharge ordered by MD. reyes 13:39 Discharged to home ambulatory, patient reports ride [facility] 13:39 Condition: good 13:39 Instructed on discharge instructions, follow up and referral plans. medication usage, Demonstrated understanding of instructions, follow-up care, medications, Prescriptions given X 3. 13:40 Patient left the ED. Signatures: Rachele Jimenez, RN RN Adia Rendon, ELEVATOR SERVICE MECH[employer]IC-C ELEVATOR SERVICE MECHANIC-Cs[employer] Sara Bartlett RN RN ss Billeau, Sheri sb2
--- NOTE | 2018-01-12 13:07 | EDPHYS ---
Physician Documentation [facility] Name: John Peralta Age: 32 yrs Sex: Male : 1985 Arrival Date: 01/12/2018 Time: 11:53 Bed 12 Private MD: None, None ED Physician mEil Lopez HPI: 01/12 13:11 This 32 yrs old Male presents to ER via Ambulatory with complaints of snw Toothache. 13:11 The patient presents with lost tooth/teeth, pain. The problem is located in the right snw mandible. Onset: The symptoms/episode began/occurred suddenly, 2 day(s) ago, and became worse. Duration: The symptoms are continuous. Associated signs and symptoms: Pertinent positives: inability to eat, pain. Severity of symptoms: At their worst the symptoms were moderate, severe. The patient has experienced similar episodes in the past. It is unknown whether or not the patient has recently seen a physician. + smoker. Historical: - Allergies: 12:03 Sulfa (Sulfonamide Antibiotics); aj - Home Meds: 12:03 None [Active]; aj - PMHx: 12:03 None; aj - PSHx: 12:03 None; aj - Immunization history:: Adult Immunizations up to date. - Social history:: Smoking status: Patient uses tobacco products, smokes one pack cigarettes per day. - Ebola Screening: : Patient negative for fever greater than or equal to 101.5 degrees Fahrenheit, and additional compatible Ebola Virus Disease symptoms Patient denies exposure to infectious person Patient denies travel to an Ebola-affected area in the 21 days before illness onset No symptoms or risks identified at this time. ROS: 13:11 Constitutional: Negative for fever, chills, and weight loss, Eyes: Negative for injury, snw pain, redness, and discharge, ENT: Negative for injury and discharge, + dental pain Neck: Negative for injury, pain, and swelling, Cardiovascular: Negative for chest pain, palpitations, and edema, Respiratory: Negative for shortness of breath, cough, wheezing, and pleuritic chest pain, Abdomen/GI: Negative for abdominal pain, nausea, vomiting, diarrhea, and constipation, Back: Negative for injury and pain, : Negative for injury, bleeding, discharge, and swelling, MS/Extremity: Negative for injury and deformity, Skin: Negative for injury, rash, and discoloration, Neuro: Negative for headache, weakness, numbness, tingling, and seizure. Exam: 13:11 Constitutional: This is a well developed, well nourished patient who is awake, alert, snw and in no acute distress. Head/Face: Normocephalic, atraumatic. Eyes: Pupils equal round and reactive to light, extra-ocular motions intact. Lids and lashes normal. Conjunctiva and sclera are non-icteric and not injected. Cornea within normal limits. Periorbital areas with no swelling, redness, or edema. ENT: Nares patent. No nasal discharge, no septal abnormalities noted. Tympanic membranes are normal and external auditory canals are clear. Oropharynx with no redness, swelling, or masses, exudates, or evidence of obstruction, uvula midline. Mucous membranes moist. Dental caries and missing teeth to upper and lower mandibular areas diffusely, tenderness to right lower 2nd molar Neck: Trachea midline, no thyromegaly or masses palpated, and no cervical lymphadenopathy. Supple, full range of motion without nuchal rigidity, or vertebral point tenderness. No Meningismus. Chest/axilla: Normal chest wall appearance and motion. Nontender with no deformity. No lesions are appreciated. Cardiovascular: Regular rate and rhythm with a normal S1 and S2. No gallops, murmurs, or rubs. Normal PMI, no JVD. No pulse deficits. Respiratory: Lungs have equal breath sounds bilaterally, clear to auscultation and percussion. No rales, rhonchi or wheezes noted. No increased work of breathing, no retractions or nasal flaring. Abdomen/GI: Soft, non-tender, with normal bowel sounds. No distension or tympany. No guarding or rebound. No evidence of tenderness throughout. Back: No spinal tenderness. No costovertebral tenderness. Full range of motion. Skin: Warm, dry with normal turgor. Normal color with no rashes, no lesions, and no evidence of cellulitis. MS/ Extremity: Pulses equal, no cyanosis. Neurovascular intact. Full, normal range of motion. Neuro: Awake and alert, GCS 15, oriented to person, place, time, and situation. Cranial nerves II-XII grossly intact. Motor strength 5/5 in all extremities. Sensory grossly intact. Cerebellar exam normal. Normal gait. Vital Signs: 12:03 BP 128 / 77; Pulse 89; Resp 19; Temp 98.6; Pulse Ox 99% on R/A; Weight 104.33 kg; aj Height 5 ft. 11 in. (180.34 cm); 12:03 Body Mass Index 32.08 (104.33 kg, 180.34 cm) aj MDM: 12:46 Patient medically screened. snw 13:20 Data reviewed: vital signs, nurses notes. Data interpreted: Pulse oximetry: on room air snw is 99 %. Interpretation: normal. Counseling: I had a detailed discussion with the patient and/or guardian regarding: the historical points, exam findings, and any diagnostic results supporting the discharge/admit diagnosis, the need for outpatient follow up, to return to the emergency department if symptoms worsen or persist or if there are any questions or concerns that arise at home, smoking cessation. Special discussion: Based on the history and exam findings, there is no indication for further emergent testing or inpatient evaluation. I discussed with the patient/guardian the need to see a dentist for further evaluation of the symptoms. I discussed with the patient/guardian the need to see the primary care provider for further evaluation of the symptoms. Administered Medications: 13:15 Drug: [place] 10 mg-325 mg 1 tabs Route: PO; ss 13:39 Follow up: Response: Adverse reaction, Physician notified; Pain is decreased ss 13:15 Drug: Zofran 4 mg Route: PO; ss 13:39 Follow up: Response: No adverse reaction ss 13:21 Drug: Clindamycin 600 mg {Note: 2 mL given in R gluteus and 2 mL given in R gluteus.} ss Route: IM; Site: left gluteus; 13:39 Follow up: Response: No adverse reaction Disposition: 17:10 Co-signature as Attending Physician, Emil Lopez MD. rn Disposition: 01/12/18 13:06 Discharged to Home. Impression: Dental caries on smooth surface penetrating into dentin, Dental caries on smooth surface penetrating into pulp. - Condition is Stable. - Discharge Instructions: Dental Caries, Adult, Dental Pain, Diet and Dental Disease, Preventive Dental Care, Adult, Form - Return To Work. - Prescriptions for Clindamycin HCl 300 mg Oral Capsule - take 1 capsule by ORAL route every 6 hours for 10 days; 40 capsule. Tylenol- Codeine #3 300-30 mg Oral Tablet - take 2 tablets by ORAL route every 6 hours As needed; 14 tablet. chlorhexidine gluconate 0.12 % Mucous Membrane mouthwash - place 15 milliliter by MUCOUS MEMBRANE route 2 times per day after brushing teeth, swish in mouth for 30 seconds then spit out; 480 milliliter. - Medication Reconciliation Form, Thank You Letter, Antibiotic Education, Prescription Opioid Use, Work release form form. - Follow up: Emergency Department; When: As needed; Reason: Worsening of condition. Follow up: Private Physician; When: 2 - 3 days; Reason: Recheck today's complaints, Continuance of care, Re-evaluation by your physician. Signatures: Rachele Jimenez RN RN aj Therrien, Shelly, MERISSA-C [employer]OUNT[employer] SUPERVISOR-[place] Emil Lopez MD MD rn Smirch, Shelby, RN RN ss Corrections: (The following items were deleted from the chart) 13:40 13:06 01/12/2018 13:06 Discharged to Home. Impression: Dental caries on smooth surface ss penetrating into dentin; Dental caries on smooth surface penetrating into pulp. Condition is Stable. Forms are Medication Reconciliation Form, Thank You Letter, Antibiotic Education, Prescription Opioid Use. Follow up: Emergency Department; When: As needed; Reason: Worsening of condition. Follow up: Private Physician; When: 2 - 3 days; Reason: Recheck today's complaints, Continuance of care, Re-evaluation by your physician. snw
[2018-01-12] MEDS ORDERED: HYDROCODONE/APAP 10/325 TAB ONE (13:13)
[2018-01-12] MEDS ORDERED: WATER FOR INJ,STERILE 10 ML ONE (13:13)
[2018-01-12] MEDS ORDERED: ONDANSETRON 4 MG (ODT) TAB ONE (13:13)
[2018-01-12] MEDS ORDERED: CLINDAMYCIN IV 150 MG/ML (4 mL) VIAL ONE (13:17)
== END 2018-01-12 13:40 | disposition home or self-care (01) ==
LOC: ER 11:51
DX: K02.62 Dental caries on smooth surface penetrating into dentin (principal); K02.63 Dental caries on smooth surface penetrating into pulp; F17.210 Nicotine dependence, cigarettes, uncomplicated; Z88.2 Allergy status to sulfonamides
CPT/HCPCS: 96372; 99283; S0077

== ENCOUNTER 2018-04-25 13:07 | Emergency (ER) | payer SELFPAY ==
--- NOTE | 2018-04-25 13:37 | EDPHYS ---
Physician Documentation [facility] Name: John Peralta Age: 33 yrs Sex: Male : 1985 Arrival Date: 04/25/2018 Time: 13:08 Bed 9 Private MD: ED Physician Diaz Castellanos HPI: 04/25 13:36 This 33 yrs old Male presents to ER via Ambulatory with complaints of jmm Toothache. 13:36 The patient presents with pain. Onset: The symptoms/episode began/occurred last night. jmm Duration: The symptoms are continuous. Associated signs and symptoms: Pertinent positives: pain, swelling, Pertinent negatives: fever. Patient complains of right lower molar pain beginning last night. Used dental putty with no relief. . Historical: - Allergies: 13:19 Sulfa (Sulfonamide Antibiotics); la1 - PMHx: 13:19 None; la1 - Immunization history:: Adult Immunizations up to date. - Social history:: Smoking status: Patient uses tobacco products, smokes one pack cigarettes per day. - Ebola Screening: : No symptoms or risks identified at this time. ROS: 13:36 Constitutional: Negative for fever, chills, and weight loss. jmm 13:36 Cardiovascular: Negative for chest pain, palpitations, and edema, Respiratory: Negative for shortness of breath, cough, wheezing, and pleuritic chest pain. 13:36 ENT: Positive for dental pain. 13:36 All other systems are negative. Exam: 13:36 Head/Face: atraumatic. jmm 13:36 Neck: Trachea midline, Supple Chest/axilla: Normal chest wall appearance and motion. Cardiovascular: Regular rate and rhythm. No edema appreciated Respiratory: Normal respirations, no respiratory distress appreciated Back: Normal ROM Skin: General appearance color normal MS/ Extremity: Moves all extremities, no obvious deformities appreciated, no edema noted to the lower extremities Neuro: Awake and alert, normal gait Psych: Behavior is normal, Mood is normal, Patient is cooperative and pleasant 13:36 Constitutional: The patient appears in no acute distress, alert, awake. 13:36 ENT: Dental exam: dental caries, gum swelling, that is moderate, diffusely. Vital Signs: 13:19 BP 124 / 92; Pulse 74; Resp 16; Temp 97.5; Pulse Ox 98% on R/A; Weight 105.69 kg; la1 Height 5 ft. 11 in. (180.34 cm); 13:19 Body Mass Index 32.50 (105.69 kg, 180.34 cm) la1 MDM: 13:36 Patient medically screened. [facility] 13:36 Data reviewed: vital signs, nurses notes. Counseling: I had a detailed discussion with tessie the patient and/or guardian regarding: the historical points, exam findings, and any diagnostic results supporting the discharge/admit diagnosis, the need for outpatient follow up, to return to the emergency department if symptoms worsen or persist or if there are any questions or concerns that arise at home. 13:36 Data interpreted: Pulse oximetry: on room air is 98 %. Interpretation: normal. [facility] Counseling: I had a detailed discussion with the patient and/or guardian regarding: the presence of at least one elevated blood pressure reading (>120/80) during this emergency department visit. Administered Medications: No medications were administered Disposition: 14:44 Co-signature as Attending Physician, Diaz Castellanos MD I agree with the assessment and kdr plan of care. Disposition: 04/25/18 13:37 Discharged to Home. Impression: Dental Caries. - Condition is Stable. - Discharge Instructions: Dental Pain. - Prescriptions for Peridex 0.12 % Mucous Membrane mouthwash - place 15 milliliter by MUCOUS MEMBRANE route 2 times per day after brushing teeth, swish in mouth for 30 seconds then spit out; 200 milliliter. Amoxicillin 875 mg Oral Tablet - take 1 tablet by ORAL route every 12 hours for 10 days; 20 tablet. Tylenol- Codeine #3 300-30 mg Oral Tablet - take 1 tablet by ORAL route every 6 hours As needed; 6 tablet. - Medication Reconciliation Form, Thank You Letter, Antibiotic Education, Prescription Opioid Use form. - Follow up: Private Physician; When: 2 - 3 days; Reason: Recheck today's complaints, Continuance of care, Re-evaluation by your physician. Signatures: Diaz Castellanos MD MD kdr Mickail, Joel, PA PA jmm Smirch, Shelby, RN RN ss Kirit Velazco RN RN la1 Corrections: (The following items were deleted from the chart) 13:43 13:37 04/25/2018 13:37 Discharged to Home. Impression: Dental Caries. Condition is ss Stable. Forms are Medication Reconciliation Form, Thank You Letter, Antibiotic Education, Prescription Opioid Use. Follow up: Private Physician; When: 2 - 3 days; Reason: Recheck today's complaints, Continuance of care, Re-evaluation by your physician. tessie
--- NOTE | 2018-04-25 13:37 | ER ---
Nurse's Notes [facility] Name: John Peralta Age: 33 yrs Sex: Male : 1985 Arrival Date: 04/25/2018 Time: 13:08 Bed 9 Private MD: Diagnosis: Dental Caries Presentation: 04/25 13:18 Presenting complaint: Patient states: Right lower dental pain for one day, known dental la1 caries. Transition of care: patient was not received from another setting of care. Onset of symptoms was April 25, 2018. Risk Assessment: Do you want to hurt yourself or someone else? Patient reports no desire to harm self or others. Initial Sepsis Screen: Does the patient meet any 2 criteria? No. Patient's initial sepsis screen is negative. Does the patient have a suspected source of infection? No. Patient's initial sepsis screen is negative. Care prior to arrival: None. 13:18 Method Of Arrival: Ambulatory la1 13:18 Acuity: YUKI 5 la1 Historical: - Allergies: 13:19 Sulfa (Sulfonamide Antibiotics); la1 - PMHx: 13:19 None; la1 - Immunization history:: Adult Immunizations up to date. - Social history:: Smoking status: Patient uses tobacco products, smokes one pack cigarettes per day. - Ebola Screening: : No symptoms or risks identified at this time. Screenin:20 Abuse screen: Denies threats or abuse. Nutritional screening: No deficits noted. la1 Tuberculosis screening: No symptoms or risk factors identified. Fall Risk None identified. Assessment: 13:20 General: Appears in no apparent distress. Behavior is calm, cooperative. Pain: la1 Complains of pain in lower right second molar and lower right third molar. Neuro: Level of Consciousness is awake, alert, obeys commands, Oriented to person, place, time, situation. Cardiovascular: Capillary refill < 3 seconds Patient's skin is warm and dry. Respiratory: Airway is patent Respiratory effort is even, unlabored, Respiratory pattern is regular, symmetrical. GI: No signs and/or symptoms were reported involving the gastrointestinal system. : No signs and/or symptoms were reported regarding the genitourinary system. EENT: Poor dentition noted. Dental caries noted in lower right second molar (#31) and lower right third molar (#32). Vital Signs: 13:19 BP 124 / 92; Pulse 74; Resp 16; Temp 97.5; Pulse Ox 98% on R/A; Weight 105.69 kg; la1 Height 5 ft. 11 in. (180.34 cm); 13:19 Body Mass Index 32.50 (105.69 kg, 180.34 cm) la1 ED Course: 13:08 Patient arrived in ED. as 13:19 Triage completed. la1 13:19 Arm band placed on right wrist. la1 13:20 Call light in reach. Side rails up X 1. la1 13:23 Cesar Corbin PA is PHCP. [facility] 13:23 Diaz Castellanos MD is Attending Physician. [facility] 13:43 Sara Bartlett, ISABEL is Primary Nurse. ss 13:43 No provider procedures requiring assistance completed. Patient did not have IV access ss during this emergency room visit. Administered Medications: No medications were administered Outcome: 13:37 Discharge ordered by MD. [facility] 13:43 Discharged to home ambulatory. ss 13:43 Condition: good 13:43 Discharge instructions given to patient, family, Instructed on discharge instructions, follow up and referral plans. medication usage, Demonstrated understanding of instructions, follow-up care, medications, Prescriptions given X 3. 13:43 Patient left the ED. ss Signatures: Cesar Corbin PA PA jmm Martinez, Amelia as Smirch, Shelby, ISABEL HALL Kirit Velazco RN RN la1
== END 2018-04-25 13:43 | disposition home or self-care (01) ==
LOC: ER 13:07
DX: K02.9 Dental caries, unspecified (principal); F17.210 Nicotine dependence, cigarettes, uncomplicated; Z88.2 Allergy status to sulfonamides
CPT/HCPCS: 99282

== ENCOUNTER 2018-05-16 17:13 | Emergency (ER) | payer SELFPAY ==
--- NOTE | 2018-05-16 17:36 | ER ---
Nurse's Notes [facility] Name: John Peralta Age: 33 yrs Sex: Male : 1985 Arrival Date: 05/16/2018 Time: 17:16 Bed 9 Private MD: None, None Diagnosis: Jaw pain Presentation: 05/16 17:20 Presenting complaint: Patient states: "Thursday I had 2 teeth extracted on the bottom aj1 right side, I think I have a dry socket. Its been so sore I've hardly been able to eat anything". Transition of care: patient was not received from another setting of care. Onset of symptoms was May 02, 2018. Risk Assessment: Do you want to hurt yourself or someone else? Patient reports no desire to harm self or others. Initial Sepsis Screen: Does the patient meet any 2 criteria? No. Patient's initial sepsis screen is negative. Does the patient have a suspected source of infection? Yes: Other: infected tooth. Care prior to arrival: None. 17:20 Method Of Arrival: Ambulatory [facility] 17:20 Acuity: YUKI 4 aj1 Triage Assessment: 17:21 General: Appears in no apparent distress. comfortable, Behavior is calm, cooperative, aj1 appropriate for age. Pain: Complains of pain in right jaw Pain currently is 8 out of 10 on a pain scale. Neuro: Level of Consciousness is awake, alert, obeys commands. Cardiovascular: Patient's skin is warm and dry. Respiratory: Airway is patent Respiratory effort is even, unlabored, Respiratory pattern is regular, symmetrical. Historical: - Allergies: 17:21 Sulfa (Sulfonamide Antibiotics); aj1 - Home Meds: 17:21 None [Active]; aj1 - PMHx: 17:21 None; aj1 - PSHx: 17:21 None; aj1 - Immunization history:: Flu vaccine is not up to date. - Social history:: Smoking status: Patient uses tobacco products, smokes one pack cigarettes per day. - Ebola Screening: : Patient denies travel to an Ebola-affected area in the 21 days before illness onset. Screenin:10 Abuse screen: Denies threats or abuse. Denies injuries from another. Nutritional iw screening: No deficits noted. Tuberculosis screening: No symptoms or risk factors identified. Fall Risk None identified. Assessment: 18:10 Pain: Complains of pain in right jaw. iw 18:10 General: Appears in no apparent distress. Behavior is calm, cooperative. Neuro: Level iw of Consciousness is awake, alert, obeys commands, Moves all extremities. Full function. Cardiovascular: Capillary refill < 3 seconds in bilateral fingers Patient's skin is warm and dry. Respiratory: Respiratory effort is even, unlabored. Derm: Skin is intact, is healthy with good turgor. Musculoskeletal: Range of motion: intact in all extremities. Vital Signs: 17:21 BP 139 / 97; Pulse 73; Resp 18; Temp 98.4; Pulse Ox 98% on R/A; Weight 107.05 kg (R); aj1 Height 6 ft. 0 in. (182.88 cm) (R); Pain 8/10; 17:21 Body Mass Index 32.01 (107.05 kg, 182.88 cm) aj1 ED Course: 17:16 Patient arrived in ED. mr 17:16 None, None is Private Physician. mr 17:21 Triage completed. aj1 17:21 Arm band placed on Patient placed in an exam room. aj1 17:24 Leah Alonzo, ISABEL is Primary Nurse. iw 17:26 Ad[facility] Stahl [facility]-C [facility]. snw 17:26 Puneet Key MD is Attending Physician. snw 18:10 Patient has correct armband on for positive identification. iw 18:10 No provider procedures requiring assistance completed. Patient did not have IV access iw during this emergency room visit. Administered Medications: 18:16 Drug: TORadol 60 mg Route: IM; Site: left deltoid; iw 18:35 Follow up: Response: No adverse reaction iw Outcome: 17:36 Discharge ordered by . snw 18:21 Discharged to home ambulatory. iw 18:21 Condition: good 18:21 Discharge instructions given to patient, Instructed on discharge instructions, follow up and referral plans. medication usage, Demonstrated understanding of instructions, follow-up care, medications, Prescriptions given X 3. 18:22 Patient left the ED. iw Signatures: Amada Costello RN RN aj1 Adia Stahl FNP-C [employer] Bobbi Hernandez mr Leah Alonzo, RN RN iw Corrections: (The following items were deleted from the chart) 05/17 07:55 11/25 18:10 Pain: Complains of pain in right jaw iw iw
--- NOTE | 2018-05-16 17:36 | EDPHYS ---
Physician Documentation [facility] Name: John Peralta Age: 33 yrs Sex: Male : 1985 Arrival Date: 05/16/2018 Time: 17:16 Bed 9 Private MD: None, None ED Physician Puneet Key HPI: 05/16 17:47 This 33 yrs old Male presents to ER via Ambulatory with complaints of Jaw snw Pain. 17:47 Onset: The symptoms/episode began/occurred suddenly, and became persistent. Associated snw signs and symptoms: Pertinent positives: swelling. Modifying factors: The patient symptoms are alleviated by nothing, the patient symptoms are aggravated by pressure. The patient has not experienced similar symptoms in the past. recent dental appt, 2 molars extracted from right mandible. Historical: - Allergies: 17:21 Sulfa (Sulfonamide Antibiotics); aj1 - Home Meds: 17:21 None [Active]; aj1 - PMHx: 17:21 None; aj1 - PSHx: 17:21 None; aj1 - Immunization history:: Flu vaccine is not up to date. - Social history:: Smoking status: Patient uses tobacco products, smokes one pack cigarettes per day. - Ebola Screening: : Patient denies travel to an Ebola-affected area in the 21 days before illness onset. ROS: 17:41 Constitutional: Negative for fever, chills, and weight loss, Eyes: Negative for injury, snw pain, redness, and discharge, ENT: Negative for injury and discharge, + pain to right mandible Neck: Negative for injury, pain, and swelling, Cardiovascular: Negative for chest pain, palpitations, and edema, Respiratory: Negative for shortness of breath, cough, wheezing, and pleuritic chest pain, Abdomen/GI: Negative for abdominal pain, nausea, vomiting, diarrhea, and constipation, Back: Negative for injury and pain, : Negative for injury, bleeding, discharge, and swelling, MS/Extremity: Negative for injury and deformity, Skin: Negative for injury, rash, and discoloration, Neuro: Negative for headache, weakness, numbness, tingling, and seizure. Exam: 17:41 Constitutional: This is a well developed, well nourished patient who is awake, alert, snw and in no acute distress. Head/Face: Normocephalic, atraumatic. Eyes: Pupils equal round and reactive to light, extra-ocular motions intact. Lids and lashes normal. Conjunctiva and sclera are non-icteric and not injected. Cornea within normal limits. Periorbital areas with no swelling, redness, or edema. Neck: Trachea midline, no thyromegaly or masses palpated, and no cervical lymphadenopathy. Supple, full range of motion without nuchal rigidity, or vertebral point tenderness. No Meningismus. Chest/axilla: Normal chest wall appearance and motion. Nontender with no deformity. No lesions are appreciated. Cardiovascular: Regular rate and rhythm with a normal S1 and S2. No gallops, murmurs, or rubs. Normal PMI, no JVD. No pulse deficits. Respiratory: Lungs have equal breath sounds bilaterally, clear to auscultation and percussion. No rales, rhonchi or wheezes noted. No increased work of breathing, no retractions or nasal flaring. Abdomen/GI: Soft, non-tender, with normal bowel sounds. No distension or tympany. No guarding or rebound. No evidence of tenderness throughout. Back: No spinal tenderness. No costovertebral tenderness. Full range of motion. Skin: Warm, dry with normal turgor. Normal color with no rashes, no lesions, and no evidence of cellulitis. MS/ Extremity: Pulses equal, no cyanosis. Neurovascular intact. Full, normal range of motion. Neuro: Awake and alert, GCS 15, oriented to person, place, time, and situation. Cranial nerves II-XII grossly intact. Motor strength 5/5 in all extremities. Sensory grossly intact. Cerebellar exam normal. Normal gait. Psych: Awake, alert, with orientation to person, place and time. Behavior, mood, and affect are within normal limits. 17:41 ENT: External ear(s): are unremarkable, Ear canal(s): no acute changes, TM's: are normal, Nose: is normal, Mouth: is normal, Posterior pharynx: is normal, Dental exam: missing teeth, specifically the lower left third molar (#17), lower left second molar (#18), lower left first molar (#19), lower right second molar (#31) and lower right third molar (#32), Voice: is normal. Vital Signs: 17:21 BP 139 / 97; Pulse 73; Resp 18; Temp 98.4; Pulse Ox 98% on R/A; Weight 107.05 kg (R); aj1 Height 6 ft. 0 in. (182.88 cm) (R); Pain 8/10; 17:21 Body Mass Index 32.01 (107.05 kg, 182.88 cm) aj1 MDM: 17:27 Patient medically screened. snw 17:44 Data reviewed: vital signs, nurses notes. Data interpreted: Pulse oximetry: on room air snw is 98 %. Interpretation: normal. Counseling: I had a detailed discussion with the patient and/or guardian regarding: the historical points, exam findings, and any diagnostic results supporting the discharge/admit diagnosis, the presence of at least one elevated blood pressure reading (>120/80) during this emergency department visit, lab results, the need for outpatient follow up, to return to the emergency department if symptoms worsen or persist or if there are any questions or concerns that arise at home. Special discussion: I have referred the patient to see his PCP for further evaluation of high blood pressure. I discussed in detail with the patient the higher chance of wound infection based on his presenting history. Based on the history and exam findings, there is no indication for further emergent testing or inpatient evaluation. I discussed with the patient/guardian the need to see a dentist for further evaluation of the symptoms. I discussed with the patient/guardian the need to see the primary care provider for further evaluation of the symptoms. Administered Medications: 18:16 Drug: TORadol 60 mg Route: IM; Site: left deltoid; iw 18:35 Follow up: Response: No adverse reaction iw Disposition: 05/17 08:25 Co-signature as Attending Physician, Puneet Key MD I agree with the assessment and georgina plan of care. Disposition: 05/16/18 17:36 Discharged to Home. Impression: Jaw pain. - Condition is Stable. - Discharge Instructions: Dental Dry Socket, Jaw Contusion, Heat Therapy. - Prescriptions for chlorhexidine gluconate 0.12 % Mucous Membrane mouthwash - place 15 milliliter by MUCOUS MEMBRANE route 2 times per day after brushing teeth, swish in mouth for 30 seconds then spit out; 480 milliliter. Tylenol- Codeine #3 300-30 mg Oral Tablet - take 2 tablets by ORAL route every 6 hours As needed; 12 tablet. Diclofenac Sodium 75 mg Oral Tablet Sustained Release - take 1 tablet by ORAL route 2 times per day; 30 tablet. - Medication Reconciliation Form, Thank You Letter, Antibiotic Education, Prescription Opioid Use form. - Follow up: Private Physician; When: 2 - 3 days; Reason: Recheck today's complaints, Continuance of care, Re-evaluation by your physician. Follow up: Emergency Department; When: As needed; Reason: Worsening of condition. Signatures: Amada Costello RN RN aj1 Puneet Key MD MD cha Therrien, Shelly, RN [employer]PLOYEE HE[employer]-C RN EMPLOYEE HE[employer]-Csnw Leah Alonzo RN RN iw Corrections: (The following items were deleted from the chart) 05/16 18:22 17:36 05/16/2018 17:36 Discharged to Home. Impression: Jaw pain. Condition is Stable. iw Forms are Medication Reconciliation Form, Thank You Letter, Antibiotic Education, Prescription Opioid Use. Follow up: Private Physician; When: 2 - 3 days; Reason: Recheck today's complaints, Continuance of care, Re-evaluation by your physician. Follow up: Emergency Department; When: As needed; Reason: Worsening of condition. snw
[2018-05-16] MEDS ORDERED: KETOROLAC 30 MG/ML INJ ONE (18:21)
== END 2018-05-16 18:22 | disposition home or self-care (01) ==
LOC: ER 17:13
DX: R68.84 Jaw pain (principal); F17.210 Nicotine dependence, cigarettes, uncomplicated
CPT/HCPCS: 96372; 99283

== ENCOUNTER 2018-06-29 13:02 | Emergency (ER) | payer SELFPAY ==
[2018-06-29] MEDS ORDERED: CLINDAMYCIN HCL 150 MG CAP ONE (13:57)
[2018-06-29] MEDS ORDERED: KETOROLAC 30 MG/ML INJ ONE (13:57)
--- NOTE | 2018-06-29 14:43 | EDPHYS ---
Physician Documentation [facility] Name: John Peralta Age: 33 yrs Sex: Male : 1985 Arrival Date: 06/29/2018 Time: 13:06 Bed 20 Private MD: None, None ED Physician Emil Lopez HPI: 06/29 14:06 This 33 yrs old Male presents to ER via Ambulatory with complaints of Abscess.snw 14:06 near rectum on right. Description: The affected area is very small, well demarcated, snw raised. Onset: The symptoms/episode began/occurred suddenly, 3 day(s) ago, and became persistent. Associated signs and symptoms: Pertinent positives: tenderness. Severity of symptoms: At their worst the symptoms were very mild. The patient has experienced a previous episode. The patient has not recently seen a physician. Historical: - Allergies: 13:10 Sulfa (Sulfonamide Antibiotics); hj - Home Meds: 13:10 None [Active]; hj - PMHx: 13:10 None; hj - PSHx: 13:10 arm surgery; hj - Immunization history:: Adult Immunizations up to date. - Social history:: Smoking status: Patient uses tobacco products, Patient uses alcohol. - Ebola Screening: : Patient negative for fever greater than or equal to 101.5 degrees Fahrenheit, and additional compatible Ebola Virus Disease symptoms Patient denies exposure to infectious person Patient denies travel to an Ebola-affected area in the 21 days before illness onset. ROS: 14:06 Constitutional: Negative for fever, chills, and weight loss, Eyes: Negative for injury, snw pain, redness, and discharge, ENT: Negative for injury, pain, and discharge, Neck: Negative for injury, pain, and swelling, Cardiovascular: Negative for chest pain, palpitations, and edema, Respiratory: Negative for shortness of breath, cough, wheezing, and pleuritic chest pain, Abdomen/GI: Negative for abdominal pain, nausea, vomiting, diarrhea, and constipation, + abscess near rectum - smaller s/p sitz baths Back: Negative for injury and pain, : Negative for injury, bleeding, discharge, and swelling, MS/Extremity: Negative for injury and deformity, Skin: Negative for injury, rash, and discoloration, Neuro: Negative for headache, weakness, numbness, tingling, and seizure. Exam: 14:05 Constitutional: This is a well developed, well nourished patient who is awake, alert, snw and in no acute distress. Head/Face: Normocephalic, atraumatic. Eyes: Pupils equal round and reactive to light, extra-ocular motions intact. Lids and lashes normal. Conjunctiva and sclera are non-icteric and not injected. Cornea within normal limits. Periorbital areas with no swelling, redness, or edema. ENT: Nares patent. No nasal discharge, no septal abnormalities noted. Tympanic membranes are normal and external auditory canals are clear. Oropharynx with no redness, swelling, or masses, exudates, or evidence of obstruction, uvula midline. Mucous membranes moist. Neck: Trachea midline, no thyromegaly or masses palpated, and no cervical lymphadenopathy. Supple, full range of motion without nuchal rigidity, or vertebral point tenderness. No Meningismus. Chest/axilla: Normal chest wall appearance and motion. Nontender with no deformity. No lesions are appreciated. Cardiovascular: Regular rate and rhythm with a normal S1 and S2. No gallops, murmurs, or rubs. Normal PMI, no JVD. No pulse deficits. Respiratory: Lungs have equal breath sounds bilaterally, clear to auscultation and percussion. No rales, rhonchi or wheezes noted. No increased work of breathing, no retractions or nasal flaring. Back: No spinal tenderness. No costovertebral tenderness. Full range of motion. Skin: Warm, dry with normal turgor. Normal color with no rashes, no lesions, and no evidence of cellulitis. MS/ Extremity: Pulses equal, no cyanosis. Neurovascular intact. Full, normal range of motion. Neuro: Awake and alert, GCS 15, oriented to person, place, time, and situation. Cranial nerves II-XII grossly intact. Motor strength 5/5 in all extremities. Sensory grossly intact. Cerebellar exam normal. Normal gait. Psych: Awake, alert, with orientation to person, place and time. Behavior, mood, and affect are within normal limits. 14:05 Abdomen/GI: Inspection: abdomen appears normal, Bowel sounds: normal, Palpation: abdomen is soft and non-tender, Rectal exam: rectal tone normal, Stool: normal, hemorrhoid(s), are not appreciated, mass, that is small, with tenderness, erythematous, outside rugae, pointing, will unroof, give po abx and have pt f/u with surgery, the exam is chaperoned by the nurse. Vital Signs: 13:11 BP 132 / 84; Pulse 82; Resp 18; Temp 100.2(O); Pulse Ox 100% on R/A; Weight 106.59 kg; hj Height 5 ft. 11 in. (180.34 cm); Pain 7/10; 13:11 Body Mass Index 32.77 (106.59 kg, 180.34 cm) hj MDM: 13:35 Patient medically screened. snw 14:44 Data reviewed: vital signs, nurses notes. Data interpreted: Pulse oximetry: on room air snw is 100 %. Interpretation: normal. Counseling: I had a detailed discussion with the patient and/or guardian regarding: the historical points, exam findings, and any diagnostic results supporting the discharge/admit diagnosis, the presence of at least one elevated blood pressure reading (>120/80) during this emergency department visit, the need for outpatient follow up, to return to the emergency department if symptoms worsen or persist or if there are any questions or concerns that arise at home. Special discussion: Based on the history and exam findings, there is no indication for further emergent testing or inpatient evaluation. I discussed with the patient/guardian the need to see the general surgeon for further evaluation of the symptoms. I discussed with the patient/guardian the need to see the primary care provider for further evaluation of the symptoms. Administered Medications: 14:03 Drug: Clindamycin 300 mg Route: PO; ss 14:03 Drug: TORadol 60 mg Route: IM; Site: right deltoid; ss Disposition: 06/30 07:20 Co-signature as Attending Physician, Emil Lopez MD. rn Disposition: 06/29/18 14:42 Discharged to Home. Impression: Abscess of anal and rectal regions. - Condition is Stable. - Discharge Instructions: How to Take a Sitz Bath, Perianal Abscess. - Prescriptions for Clindamycin HCl 300 mg Oral Capsule - take 1 capsule by ORAL route every 6 hours for 10 days; 40 capsule. Diclofenac Sodium 75 mg Oral Tablet Sustained Release - take 1 tablet by ORAL route 2 times per day; 30 tablet. - Work release form, Medication Reconciliation Form, Thank You Letter, Antibiotic Education, Prescription Opioid Use form. - Follow up: Emergency Department; When: As needed; Reason: Worsening of condition. Follow up: Kwesi Ingram MD; When: 2 - 3 days; Reason: Recheck today's complaints, Continuance of care. - Notes: Sitz baths 3-4 times daily Signatures: Adia Stahl, CASE MANAGEMENT COORDINATOR-C CASE MANAGEMENT COORDINATOR-Csnw Emil Lopez MD MD rn Smirch, Shelby, RN RN Roque Smalls RN RN Alicia Khan Corrections: (The following items were deleted from the chart) 06/29 14:53 14:42 06/29/2018 14:42 Discharged to Home. Impression: Abscess of anal and rectal eb regions. Condition is Stable. Forms are Medication Reconciliation Form, Thank You Letter, Antibiotic Education, Prescription Opioid Use. Follow up: Emergency Department; When: As needed; Reason: Worsening of condition. Follow up: Kwesi Ingram; When: 2 - 3 days; Reason: Recheck today's complaints, Continuance of care. snw
--- NOTE | 2018-06-29 14:43 | ER ---
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 Transition of care: patient was not received from another setting of care. Onset of symptoms was June 29, 2018. Risk Assessment: Do you want to hurt yourself or someone else? Patient reports no desire to harm self or others. Initial Sepsis Screen: Does the patient meet any 2 criteria? Yes Does the patient have a suspected source of infection? Yes: Skin breakdown/wound. Care prior to arrival: None. 13:08 Method Of Arrival: Ambulatory 13:08 Acuity: YUKI 4 hj Triage Assessment: 13:10 General: Appears in no apparent distress. uncomfortable, Behavior is calm, cooperative, hj appropriate for age. Pain: Complains of pain in butt cheeks, anal area;. Historical: - Allergies: 13:10 Sulfa (Sulfonamide Antibiotics); hj - Home Meds: 13:10 None [Active]; hj - PMHx: 13:10 None; hj - PSHx: 13:10 arm surgery; hj - Immunization history:: Adult Immunizations up to date. - Social history:: Smoking status: Patient uses tobacco products, Patient uses alcohol. - Ebola Screening: : Patient negative for fever greater than or equal to 101.5 degrees Fahrenheit, and additional compatible Ebola Virus Disease symptoms Patient denies exposure to infectious person Patient denies travel to an Ebola-affected area in the 21 days before illness onset. Screenin:13 Abuse screen: Denies threats or abuse. Denies injuries from another. Nutritional hj screening: No deficits noted. Tuberculosis screening: No symptoms or risk factors identified. Fall Risk None identified. Assessment: 13:30 General: Appears in no apparent distress. comfortable, well groomed, well developed, sg well nourished, Behavior is calm, cooperative, appropriate for age. Pain: Complains of pain in gluteal cleft Quality of pain is described as tender, throbbing. Neuro: No deficits noted. Cardiovascular: No deficits noted. Capillary refill is brisk in bilateral fingers Patient's skin is warm and dry. Chest pain is denied. Respiratory: No deficits noted. GI: No deficits noted. No signs and/or symptoms were reported involving the gastrointestinal system. : No deficits noted. No signs and/or symptoms were reported regarding the genitourinary system. EENT: No deficits noted. No signs and/or symptoms were reported regarding the EENT system. Derm: Skin is pink, warm \T\ dry. Abscess located on gluteal cleft is nickel sized, has no drainage, is red, is raised. Musculoskeletal: No deficits noted. No signs and/or symptoms reported regarding the musculoskeletal system. Vital Signs: 13:11 BP 132 / 84; Pulse 82; Resp 18; Temp 100.2(O); Pulse Ox 100% on R/A; Weight 106.59 kg; hj Height 5 ft. 11 in. (180.34 cm); Pain 7/10; 13:11 Body Mass Index 32.77 (106.59 kg, 180.34 cm) hj ED Course: 13:06 Patient arrived in ED. mr 13:06 None, None is Private Physician. mr 13:10 Triage completed. hj 13:13 Arm band placed on left wrist. hj 13:13 Patient has correct armband on for positive identification. Placed in gown. Bed in low hj position. Call light in reach. Side rails up X 1. 13:22 Rod Rios, ISABEL is Primary Nurse. sg 13:34 Adia Stahl FNP-C [facility]. snw 13:34 Emil Lopez MD is Attending Physician. snw 14:42 Kwesi Ingram MD is Referral Physician. snw 14:50 No provider procedures requiring assistance completed. Patient did not have IV access sg during this emergency room visit. Administered Medications: 14:03 Drug: Clindamycin 300 mg Route: PO; ss 14:03 Drug: TORadol 60 mg Route: IM; Site: right deltoid; ss Outcome: 14:42 Discharge ordered by . snw 14:50 Discharged to home ambulatory. sg 14:50 Condition: good 14:50 Discharge instructions given to patient, Instructed on discharge instructions, follow up and referral plans. medication usage, safety practices, wound care, Demonstrated understanding of instructions, follow-up care, medications, wound care, Prescriptions given X 2. 14:53 Patient left the ED. 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 11 in.; BMI: 32.7; Pain 7/10; hj
== END 2018-06-29 14:53 | disposition home or self-care (01) ==
LOC: ER 13:02
DX: K61.2 Anorectal abscess (principal)
CPT/HCPCS: 96372; 99283

== ENCOUNTER 2022-06-22 11:55 | Emergency (ER) | payer SELFPAY ==
--- OUTSIDE RECORDS SUMMARY | 2022-06-22 12:02 | XMS REPORT | Continuity of Care Document ---
:1985 Author Organization [facility] t Address [address] [place] [address] [address]. Zayas [address] [place] [address] Care Team Providers Name Role Phone RADHA Attending Clinician Unavailable Burke Vital Attending Clinician [phone] Basil Elizalde Attending Clinician Unavailable Rosaura Tidwell Attending Clinician Unavailable RADHA Admitting Clinician Unavailable Basil Elizalde Admitting Clinician Unavailable Physician, No Primary or Family Admitting Clinician Unavaila ble Payers Payer Name Policy Type Policy Number Effective Date Expiration Date S ource Problems Condition Condition Condition Status Onset Resolution Last Treating Co mments Source Name Details Category Date Date Treatment Clinician Date History of History of Problem Active S weeny 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 Communi depressive Depressive 00:00: ty disorder Disorder 00 [facility] Clin[facility] History of History of Problem Active 2020-06 S weeny SARS-CoV-2 SARS-CoV-2 0-19 [facility] 00:00: ty 00 [facility] Anxiety Anxiety Problem Active Gary 7- Communi 00:00: ty 00 [facility] Essential Essential Problem Active Swe carol hypertensi Hypertensi 7-26 Co mmuni on on 00:00: ty 00 [facility] Clin[facility] Paroxysmal Paroxysmal Problem Active S weeny supraventr Supraventr 01-14 Co mmuni icular icular 00:00: ty tachycardi Tachycardi 00 Ho spialice a a [facility] History of History of Problem Active S kathyencaridad cocaine Cocaine 01-14 Communi abuse Abuse 00:00: ty 00 [facility] Pulmonary Pulmonary Problem Active Swe carol embolism Embolism 12-18 Commun i 00:00: ty 00 [facility] Current Current Problem Active Gary drug user Drug User 12-18 Comm uni 00:00: ty 00 [facility] Allergies, Adverse Reactions, Alerts Allergy Allergy Status Severity Reaction(s) Onset Inactive Treating Comm ents Source Name Type Date Date Clinician Sulfa DA Active U HIVES [facility] (Sulfona 6-20 Clear mide 00:00: [place] Antibiot 00 Regiona ics) [facility] Sulfa DA Active U [facility] (Sulfona 9- [place] mide 00:00: e Antibiot 00 Medical ics) Center No Known DA Active U 2007- [facility] Contrast 9-11 [place] Allergie 00:00: e s 00 Medical Center No Known DA Active U 2007-0 [facility] Food 9-11 [place] Allergie 00:00: e s 00 [facility] Center No Known DA [facility] U 2007[facility]0 [facility] SULFA DA Active U 2007-0 [facility] DRUGS 9-11 [place] 00:00: e 00 [facility] SULFA Allergy Active Severe Other Gary (SULFONA to Communi MIDE substanc ty ANTIBIOT e Hospita ICS) [facility] Social History Smoking Status Start Date Stop Date Source Heavy Tobacco Smoker Gary Comm [facility] Medications Ordered Filled Start Stop Current Ordering Indication Dosage Frequency Signature Comments Components Source Medication Medication Date Date Medication? Clinician (SIG) Name Name metoprolol metoprolol No 1 Q1D metoprolol Gary succinate succinate succinate Communi ER 50 mg ER 50 mg ER 50 mg ty tablet,exte tablet,exte tablet,ext Hospita nded nded ended l release 24 release 24 release 24 Clinics hr Take 1 hr Take 1 hr Take 1 tablet tablet tablet every day every day every day by oral by oral by oral route. route. route. buspirone buspirone No buspirone Gary 10 mg 10 mg 10 mg Communi tablet TAKE tablet TAKE tablet ty 1 TABLET BY 1 TABLET BY TAKE 1 Hospita MOUTH THREE MOUTH THREE TABLET BY l TIMES DAILY TIMES DAILY MOUTH Clinics THREE TIMES DAILY Eliquis 5 Eliquis 5 No Eliquis 5 Gary mg tablet mg tablet mg tablet Communi TAKE 1 TAKE 1 TAKE 1 ty TABLET BY TABLET BY TABLET BY Hospita MOUTH TWICE MOUTH TWICE MOUTH l DAILY DAILY TWICE Clinics DAILY ID NOW ID NOW No ID NOW Gary COVID-19 COVID-19 COVID-19 Com maria g Test Kit Test Kit Test Kit ty USE USE USE Hospita DIRECTED DIRECTED DIRECTED l TEST TEST TEST Clinics metoprolol metoprolol No 1 Q1D metoprolol Gary succinate succinate succinate Communi ER 100 mg ER 100 mg ER 100 mg ty tablet,exte tablet,exte tablet,ext Hospita nded nded ended l release 24 release 24 release 24 Clinics hr Take 1 hr Take 1 hr Take 1 tablet tablet tablet every day every day every day by oral by oral by oral route. route. route. metoprolol metoprolol No metoprolol Gary succinate succinate succinate Communi ER 50 mg ER 50 mg ER 50 mg ty tablet,exte tablet,exte tablet,ext Hospita nded nded ended l release 24 release 24 release 24 Clinics hr TAKE 1 hr TAKE 1 hr TAKE 1 TABLET BY TABLET BY TABLET BY MOUTH EVERY MOUTH EVERY MOUTH DAY DAY EVERY DAY buspirone buspirone No buspirone Gary 10 mg 10 mg 10 mg Communi tablet TAKE tablet TAKE tablet ty 1 TABLET BY 1 TABLET BY TAKE 1 Hospita MOUTH THREE MOUTH THREE TABLET BY l TIMES DAILY TIMES DAILY MOUTH Clinics THREE TIMES DAILY Eliquis 5 Eliquis 5 No Eliquis 5 Gary mg tablet mg tablet mg tablet Communi TAKE 1 TAKE 1 TAKE 1 ty TABLET BY TABLET BY TABLET BY Hospita MOUTH TWICE MOUTH TWICE MOUTH l DAILY DAILY TWICE Clinics DAILY ID NOW ID NOW No ID NOW Gary COVID-19 COVID-19 COVID-19 Com maria g Test Kit Test Kit Test Kit ty USE USE USE Hospita DIRECTED DIRECTED DIRECTED l TEST TEST TEST Clinics metoprolol metoprolol No metoprolol Gary succinate succinate succinate Communi ER 100 mg ER 100 mg ER 100 mg ty tablet,exte tablet,exte tablet,ext Hospita nded nded ended l release 24 release 24 release 24 Clinics hr TAKE 1 hr TAKE 1 hr TAKE 1 TABLET BY TABLET BY TABLET BY MOUTH EVERY MOUTH EVERY MOUTH DAY DAY EVERY DAY metoprolol metoprolol No 1 Q1D metoprolol Gary succinate succinate succinate Communi ER 200 mg ER 200 mg ER 200 mg ty tablet,exte tablet,exte tablet,ext Hospita nded nded ended l release 24 release 24 release 24 Clinics hr Take 1 hr Take 1 hr Take 1 tablet tablet tablet every day every day every day by oral by oral by oral route. route. route. bupropion bupropion No 1 Q1D bupropion Gary HCl XL 150 HCl XL 150 HCl XL 150 Communi mg 24 hr mg 24 hr mg 24 hr ty tablet, tablet, tablet, Hospit a extended extended extended l release release release Clinic s Take 1 Take 1 Take 1 tablet tablet tablet every day every day every day by oral by oral by oral route. route. route. Eliquis 5 Eliquis 5 No Eliquis 5 Gary mg tablet mg tablet mg tablet Communi TAKE 1 TAKE 1 TAKE 1 ty TABLET BY TABLET BY TABLET BY Hospita MOUTH TWICE MOUTH TWICE MOUTH l DAILY DAILY TWICE Clinics DAILY ID NOW ID NOW No ID NOW Gary COVID-19 COVID-19 COVID-19 Com maria g Test Kit Test Kit Test Kit ty USE USE USE Hospita DIRECTED DIRECTED DIRECTED l TEST TEST TEST Clinics lisinopril lisinopril No 1 Q1D lisinopril Gary 10 mg 10 mg 10 mg Communi tablet Take tablet Take tablet ty 1 tablet 1 tablet Take 1 Hospi ta every day every day tablet l by oral by oral every day Clin ics route. route. by oral route. metoprolol metoprolol No metoprolol Gary succinate succinate succinate Communi ER 200 mg ER 200 mg ER 200 mg ty tablet,exte tablet,exte tablet,ext Hospita nded nded ended l release 24 release 24 release 24 Clinics hr TAKE 1 hr TAKE 1 hr TAKE 1 TABLET BY TABLET BY TABLET BY MOUTH EVERY MOUTH EVERY MOUTH DAY DAY EVERY DAY bupropion bupropion No bupropion Gary HCl XL 150 HCl XL 150 HCl XL 150 Communi mg 24 hr mg 24 hr mg 24 hr ty tablet, tablet, tablet, Hospit a extended extended extended l release release release Clinic s TAKE 1 TAKE 1 TAKE 1 TABLET BY TABLET BY TABLET BY MOUTH EVERY MOUTH EVERY MOUTH DAY DAY EVERY DAY Eliquis 5 Eliquis 5 No Eliquis 5 Gary mg tablet mg tablet mg tablet Communi TAKE 1 TAKE 1 TAKE 1 ty TABLET BY TABLET BY TABLET BY Hospita MOUTH TWICE MOUTH TWICE MOUTH l DAILY DAILY TWICE Clinics DAILY ID NOW ID NOW No ID NOW Gary COVID-19 COVID-19 COVID-19 Com maria g Test Kit Test Kit Test Kit ty USE USE USE Hospita DIRECTED DIRECTED DIRECTED l TEST TEST TEST Clinics lisinopril lisinopril No 1 Q1D lisinopril Gary 20 20 20 Communi mg-hydrochl mg-hydrochl mg-hydroch ty orothiazide orothiazide lorothiazi Hospita 12.5 mg 12.5 mg de 12.5 mg l tablet Take tablet Take tablet Clinics 1 tablet 1 tablet Take 1 every day every day tablet by oral by oral every day route. route. by oral route. metoprolol metoprolol No metoprolol Gary succinate succinate succinate Communi ER 200 mg ER 200 mg ER 200 mg ty tablet,exte tablet,exte tablet,ext Hospita nded nded ended l release 24 release 24 release 24 Clinics hr TAKE 1 hr TAKE 1 hr TAKE 1 TABLET BY TABLET BY TABLET BY MOUTH EVERY MOUTH EVERY MOUTH DAY DAY EVERY DAY bupropion bupropion No bupropion Gary HCl XL 150 HCl XL 150 HCl XL 150 Communi mg 24 hr mg 24 hr mg 24 hr ty tablet, tablet, tablet, Hospit a extended extended extended l release release release Clinic s TAKE 1 TAKE 1 TAKE 1 TABLET BY TABLET BY TABLET BY MOUTH EVERY MOUTH EVERY MOUTH DAY DAY EVERY DAY cyclobenzap cyclobenzap No 1 Q1D cyclobenza Gary rine 10 mg rine 10 mg lina 10 Communi tablet Take tablet Take mg tablet ty 1 tablet 1 tablet Take 1 Hospi ta every day every day tablet l by oral by oral every day Clin ics route at route at by oral bedtime. bedtime. route at bedtime. Eliquis 5 Eliquis 5 No Eliquis 5 Gary mg tablet mg tablet mg tablet Communi TAKE 1 TAKE 1 TAKE 1 ty TABLET BY TABLET BY TABLET BY Hospita MOUTH TWICE MOUTH TWICE MOUTH l DAILY DAILY TWICE Clinics DAILY ID NOW ID NOW No ID NOW Gary COVID-19 COVID-19 COVID-19 Com maria g Test Kit Test Kit Test Kit ty USE USE USE Hospita DIRECTED DIRECTED DIRECTED l TEST TEST TEST Clinics lisinopril lisinopril No 1 Q1D lisinopril Gary 20 20 20 Communi mg-hydrochl mg-hydrochl mg-hydroch ty orothiazide orothiazide lorothiazi Hospita 12.5 mg 12.5 mg de 12.5 mg l tablet Take tablet Take tablet Clinics 1 tablet 1 tablet Take 1 every day every day tablet by oral by oral every day route. route. by oral route. metoprolol metoprolol No metoprolol Gary succinate succinate succinate Communi ER 200 mg ER 200 mg ER 200 mg ty tablet,exte tablet,exte tablet,ext Hospita nded nded ended l release 24 release 24 release 24 Clinics hr TAKE 1 hr TAKE 1 hr TAKE 1 TABLET BY TABLET BY TABLET BY MOUTH EVERY MOUTH EVERY MOUTH DAY DAY EVERY DAY acetaminoph acetaminoph No acetaminop Gary en 300 en 300 hen 300 Communi mg-codeine mg-codeine mg-codeine ty 30 mg 30 mg 30 mg Hospita tablet TAKE tablet TAKE tablet l 1 TO 2 1 TO 2 TAKE 1 TO Clinic s TABLETS BY TABLETS BY 2 TABLETS MOUTH EVERY MOUTH EVERY BY MOUTH 6 HOURS 6 HOURS EVERY 6 NEEDED NEEDED HOURS NEEDED azithromyci azithromyci No azithromyc Gary n 250 mg n 250 mg in 250 mg Co mmuni tablet tablet tablet ty Hospita l [facility] BuSpar 10 BuSpar 10 No 1 TID BuSpar 10 Gary mg tablet mg tablet mg tablet Communi Take 1 Take 1 Take 1 ty tablet 3 tablet 3 tablet 3 Hos collins times a day times a day times a l by oral by oral day by Clinics route. route. oral route. clindamycin clindamycin No clindamyci Gary HCl 150 mg HCl 150 mg n HCl 150 Communi capsule TK capsule TK mg capsule ty 1 C PO TID 1 C PO TID TK 1 C PO Hospita TAT TAT TID TAT l Clinics Eliquis 5 Eliquis 5 No 1 BID Eliquis 5 Gary mg tablet mg tablet mg tablet Communi Take 1 Take 1 Take 1 ty tablet tablet tablet Hospita twice a day twice a day twice a l by oral by oral day by Clinics route. route. oral route. tramadol 50 tramadol 50 No tramadol Gary mg tablet mg tablet 50 mg Comm uni TK 1 TO 2 TK 1 TO 2 tablet TK ty TS PO QID TS PO QID 1 TO 2 TS Hospita PRN P PRN P PO QID PRN l P Clinics buspirone buspirone No buspirone Gary 10 mg 10 mg 10 mg Communi tablet TAKE tablet TAKE tablet ty 1 TABLET BY 1 TABLET BY TAKE 1 Hospita MOUTH THREE MOUTH THREE TABLET BY l TIMES DAILY TIMES DAILY MOUTH Clinics THREE TIMES DAILY Eliquis 5 Eliquis 5 No 1 BID Eliquis 5 Gary mg tablet mg tablet mg tablet Communi Take 1 Take 1 Take 1 ty tablet tablet tablet Hospita twice a day twice a day twice a l by oral by oral day by Clinics route. route. oral route. Vital Signs Vital Name Observation Time Observation Value Comments Source BP Diastolic 2021-08-06 00:00:00 88 mm[Hg] [facility] Height 2021-08-06 00:00:00 71 [in_i] [facility] s BMI (Body Mass 2021-08-06 00:00:00 36.1 kg/m2 [facility] BP Systolic 2021-08-06 00:00:00 134 mm[Hg] [facility] s Body Weight 2021-08-06 00:00:00 4144 [oz_av] [facility] s BP Diastolic 2021-07-18 00:00:00 92 mm[Hg] [facility] Height 2021-07-18 00:00:00 71 [in_i] [facility] s BMI (Body Mass 2021-07-18 00:00:00 36.3 kg/m2 [facility]) [facility] s BP Systolic 2021-07-18 00:00:00 164 mm[Hg] [facility] Body Weight 2021-07-18 00:00:00 4160 [oz_av] [facility] s BMI (Body Mass 2021-06-20 00:00:00 37.1 kg/m2 [facility]) [facility] s BP Systolic 2021-06-20 00:00:00 140 mm[Hg] [facility] Body Weight 2021-06-20 00:00:00 4256 [oz_av] [facility] s BP Diastolic 2021-06-20 00:00:00 101 mm[Hg] [facility] Height 2021-06-20 00:00:00 71 [in_i] [facility] s BP Diastolic 2021-04-09 00:00:00 88 mm[Hg] [facility] Height 2021-04-09 00:00:00 71 [in_i] [facility] s BMI (Body Mass 2021-04-09 00:00:00 37.2 kg/m2 [facility]) [facility] s BP Systolic 2021-04-09 00:00:00 164 mm[Hg] [facility] Body Weight 2021-04-09 00:00:00 4272 [oz_av] [facility] s BP Diastolic 2021-01-14 00:00:00 94 mm[Hg] [facility] Height 2021-01-14 00:00:00 71 [in_i] [facility] s BMI (Body Mass 2021-01-14 00:00:00 36.1 kg/m2 [facility]) [facility] s BP Systolic 2021-01-14 00:00:00 142 mm[Hg] [facility] Body Weight 2021-01-14 00:00:00 4144 [oz_av] [facility] s BP Diastolic 2020-12-18 00:00:00 92 mm[Hg] [facility] Height 2020-12-18 00:00:00 71 [in_i] [facility] s BMI (Body Mass 2020-12-18 00:00:00 33.5 kg/m2 [facility] s BP Systolic 2020-12-18 00:00:00 132 mm[Hg] [facility] s Body Weight 2020-12-18 00:00:00 3840 [oz_av] [facility] s Procedures Procedure Date / Time Performed Performing Clinician Daniel e [id number] 2020-12-09 00:00:00 TOM [facility] [id number] 2020-12-09 00:00:00 TOM [facility] Plan of Care Planned Activity Planned Date Details Comments Source Diagnostic Test 2021-08-06 CMP, serum or Gary Comm unity Pending 00:00:00 plasma [code = Hospital Clin ics CMP, serum or plasma] Encounters Start End Encounter Admission Attending Care Care Encounter Source Date/Time Date/Time Type Type Clinicians Facility Department ID 2021-08-06 2021-08-06 Outpatient NATALIE_Shantal [facility] [id number] Gary 12:57:00 12:57:00 0215 Commun i ty Hospita l [facility] 2021-08-06 2021-08-06 Burke [facility] [place] - Gary Gary 00:00:00 [facility]00[facility] [address] Hospit a [facility] l [address], HOSPITAL Clinic s [facility], [address] NATALIE , Ph. 2021-08-06 2021-08-06 Outpatient Natalie [facility] [id number] 00:00:00 00:00:00 Burke norton-jitendra Gonzalez [id number] 2021-08-06 Outpatient Natalie [facility] [id number] 00:00:00 00:00:00 Burke Gonzalez [id number] 2021-08-01 2021-08-01 Outpatient RADHA [facility] [id number] Gary 02:15:00 02:15:00 0210 Commun i ty Hospita l Clinics 2021-07-18 2021-07-18 Outpatient ERICKSON_R [facility] [id number] Gary 06:10:00 06:10:00 0127 Commun i ty Hospita l Clinics 2021-07-18 2021-07-18 Burke [facility] [place] - Gary Gary 00:00:00 00:00:00 [facility] DO: [address] Hospit a [facility], [place]IC, [address] NATALIE , Ph. 2021-07-18 2021-07-18 Outpatient Natalie [facility] [id number] 00:00:00 00:00:00 Burke [id number] Carlos [id number] 2021-06-20 2021-06-20 Outpatient ERICKSON_R [facility] [id number] Gary 02:55:00 02:55:00 1230 Commun i ty Hospita l Clinics 2021-06-20 2021-06-20 Outpatient Natalie [facility] [id number] 00:00:00 00:00:00 Burke [id number] 2021-06-20 2021-06-20 Burke [facility] [place] - Gary [id number] Gary 00:00:00 00:00:00 [facility] DO: [address] Hospit [facility] [place], [address] NATALIE , Ph. 2021-06-14 2021-06-14 Outpatient ERICKSON_R [facility] [id number] Gary 02:14:00 02:14:00 1224 Commun i ty Hospita l Clinics 2021-06-10 2021-06-10 Outpatient ERICKSON_R [facility] [id number] Gary 02:04:00 02:04:00 1220 Commun i ty Hospita l Clinics 2021-04-09 2021-04-09 Outpatient ERICKSON_R [facility] [id number] Gary 05:20:00 05:20:00 1019 Commun i ty Hospita l Clinics 2021-04-09 2021-04-09 Outpatient Natalie [facility] [id number] 00:00:00 00:00:00 Burke [id number] Carlos [id number] 2021-04-09 2021-04-09 Burke [facility] [place] - Gary Gary 00:00:00 00:00:00 [facility] DO: [address] Hospit a [facility], [place] CLINIC, [address] NATALIE , Ph. 2021-01-14 2021-01-14 Outpatient ERICKSON_R [place] [id number] Gary 06:19:00 06:19:00 0726 Commun i ty Hospita l Clinics 2021-01-14 2021-01-14 Outpatient Natalie [facility] [id number] 00:00:00 00:00:00 Burke [id number] 2021-01-14 2021-01-14 Burke [facility] [place] - Gary Gary 00:00:00 00:00:00 [facility] DO: [address] Hospit a [facility], [place] CLINIC, [address] NATALIE , Ph. 2020-12-18 2020-12-18 Outpatient ERICKSON_R [facility] [id number] Gary 04:24:00 04:24:00 0629 Commun i ty Hospita l Clinics 2020-12-18 2020-12-18 Outpatient Natalie [facility] [id number] 00:00:00 00:00:00 Burke [id number] Carlos [id number] 2020-12-18 2020-12-18 Burke [facility] [place] - Gary Gary 00:00:00 00:00:00 Carlos [facility] DO: [address] [facility] Hospit a [facility] [address], HOSPITAL Clinic s [place], [place] CLINIC, [address] NATALIE , Ph. [phone] 2020-12-09 2020-12-17 Inpatient MARCO Gonzales INTE [id number] [facility] 00:30:00 12:14:00 Basil [facility] 2020-12-11 2020-12-11 Outpatient Ilkenya, HCACL LABO [id number] [facility] 07:14:00 07:14:00 Rosaura 15 [facility] Results Test Description Test Time Test Comments Results Result [facility] e Comments - XR CHEST 1 V 2020-12-17 08:47:00 [facility])Name: BERKLEY SAMS : 1985 Sex: M FAX: Crissy Jolly NP Anza: B St: ADM FAX: Basil Mitchell Name: BERKLEY SAMS [facility] : 1985 Age/S: 35/M Kim Guillen Unit #: [id number] Loc: V.4024 [place] [address] Phys: Crissy Jolly NP Acct: [id number] Dis Date: Status: ADM IN PHONE #: [phone] Exam Date: 12/17/2020 0750 FAX #: [phone] Reason: Acute Respiratory Failure EXAMS: CPT CODE: [id number] XR CHEST 1 V [id number] REASON FOR EXAM: Acute Respiratory Failure Exam Order Date: 12/17/2020 2:00 AM Ordering MQi: Crissy Jolly NP PROCEDURE: - XR CHEST 1 V COMPARISON: Previous day FINDINGS: Lines/Tubes: None Patchy lower lobe predominant airspace opacities. There is no pleural effusion or pneumothorax. Pulmonary vascularity is within normal limits. Cardiomediastinal silhouette and mediastinal contours are unchanged when accounting for differences in technique. Musculoskeletal structures and visualized portions of the upper abdomen are also unchanged. IMPRESSION: Slight worsening right lower lobe airspace disease. Otherwise unchanged. Location: [facility] at 0847 Reported and signed by: Jeronimo Geller M.D. CC: Crissy Jolly NP; Basil Elizalde MD Technologist: AMBER De La Rosa) Trnscrd Date/Time/By: 12/17/2020 (0847) : By: [email or web address] [facility] Print D/T: S: 12/17/2020 (6427) PAGE 1 Signed Report POC CALCIUM IONIZED 2020-12-17 04:27:00 Test Item Value Reference Range Interpretation Comme nts POC CALCIUM IONIZED (test code = CAIP) 1.19 mmol/L 1.12-1.32 N COMPREHENSIVE METABOLIC [id number] 03:48:00 Test Item Value Reference Range Interpretation Comments SODIUM (test code = 141 mmol/L 136-145 N NA) POTASSIUM (test code 3.9 mmol/L 3.5-5.1 N = K) CHLORIDE (test code = 106.0 mmol/L 98-107 N CL) CARBON DIOXIDE (test 30.0 mmol/L 21-32 N code = CO2) ANION GAP (test code 8.9 10-20 L = GAP) GLUCOSE (test code = 86 mg/dL 74-106 N GLU) BLOOD UREA NITROGEN 9 mg/dL 7-18 N (test code = BUN) GLOMERULAR FILTRATION > 60 mL/min See_Comment Estima dimitri GFR by RATE (test code = using Lyla fied MDRD GFR) formula.Chronic kidney disease is defined as eith er kidney damageor GFR <60 mL/min/1.73 m2 for >3 months. [Automated mess age] The system [email or web address] generated this result transmit dimitri reference range : >=60. The refer ence range was not u sed to interpret th is result as normal/abnormal . CREATININE (test code 0.70 mg/dL 0.7-1.3 N = CREAT) BUN/CREATININE RATIO 12.7 10-20 N (test code = BUN/CREA) TOTAL PROTEIN (test 7.0 gram/dL 6.4-8.2 N code = PROT) ALBUMIN (test code = 3.7 g/dL 3.4-5.0 N ALB) GLOBULIN (test code = 3.3 gram/dL 2.7-4.2 N GLOB) ALBUMIN/GLOBULIN 1.1 0.75-1.50 N RATIO (test code = A/G) CALCIUM (test code = 9.7 mg/dL 8.5-10.1 N CA) BILIRUBIN TOTAL (test 0.30 mg/dL 0.0-1.0 N code = BILT) SGOT/AST (test code = 83 IUnit/L 15-37 H AST) SGPT/ALT (test code = 120 IUnit/L 12-78 H ALT) ALKALINE PHOSPHATASE 85 IUnit/L 45-117 N Note change in TOTAL (test code = reference range due ALKP) to change in reagent. [id number] 03:48:00 Test Item Value Reference Range Interpretation Comments PHOSPHORUS (test code = PHOS) 4.5 mg/dL 2.5-4.9 N [id number] 03:48:00 Test Item Value Reference Range Interpretation Comments MAGNESIUM (test code = MAG) 2.0 mg/dL 1.8-2.4 N CBC W/AUTO [id number] 03:26:00 Test Item Value Reference Range Interpretation Comments WHITE BLOOD CELL (test 10.5 K/mm3 4.5-12.5 N code = WBC) RED BLOOD CELL (test 4.50 mill/mm3 4.0-5.8 N code = RBC) HEMOGLOBIN (test code 14.2 gram/dL 13.0-17.5 N = HGB) HEMATOCRIT (test code 43.6 % 42.0-52.0 N = HCT) MEAN CELL VOLUME (test 96.9 fL 80-98 N code = MCV) MEAN CELL HGB (test 31.6 picogram 27.0-33.0 N code = MCH) MEAN CELL HGB 32.6 gram/dL 33.0-36.0 L CONCETRATION (test code = MCHC) RED CELL DISTRIBUTION 13.1 % 11.6-16.2 N WIDTH (test code = RDW) RED CELL DISTRIBUTION 45.7 fL 37.0-51.0 N WIDTH SD (test code = RDW-SD) PLATELET COUNT (test 463 K/mm3 150-450 H RESULT VERIFIED BY code = PLT) REPEAT ANALYSIS MEAN PLATELET VOLUME 10.0 fL 6.7-11.0 N (test code = MPV) NEUTROPHIL % (test 55.2 % 39.0-69.0 N code = NT%) IMMATURE GRANULOCYTE % 1.1 % 0.0-5.0 N (test code = IG%) LYMPHOCYTE % (test 35.6 % 25.0-55.0 N code = LY%) MONOCYTE % (test code 6.9 % 0.0-10.0 N = MO%) EOSINOPHIL % (test 0.3 % 0.0-5.0 N code = EO%) BASOPHIL % (test code 0.9 % 0.0-1.0 N = BA%) NUCLEATED RBC % (test 0.0 % 0-0 N code = NRBC%) NEUTROPHIL # (test 5.81 K/mm3 1.8-7.7 N code = NT#) IMMATURE GRANULOCYTE # 0.12 x10 3/uL 0-0.03 H (test code = IG#) LYMPHOCYTE # (test 3.75 K/mm3 1.0-5.0 N code = LY#) MONOCYTE # (test code 0.73 K/mm3 0-0.8 N = MO#) EOSINOPHIL # (test 0.03 K/mm3 0.0-0.5 N code = EO#) BASOPHIL # (test code 0.10 K/mm3 0.0-0.2 N = BA#) NUCLEATED RBC # (test 0.00 K/mm3 0.0-0.1 N code = NRBC#) MANUAL DIFF REQUIRED NO (test code = MDIFF) PROTHROMBIN [id number] 03:21:00 Test Item Value Reference Range Interpretation Comments PROTHROMBIN TIME 17.8 seconds 9.0-14.0 H PATIENT (test code = PTP) INTERNATIONAL NORMAL 1.5 0.8-1.2 H The the rapeutic range RATIO (test code = for oral INR) anticoagulant t herapy formost indicat ions is an internati onal normalized rati o (INR)of between 2.0 and 3.0. The recommended therapeutic INR range for various cli nical situations is l isted below: Clinical Situat ion INR range Pulmonary embol ism treatment (2.0-3.0)Venous thrombosis treatmentVenous thrombosis prophylaxis (hi gh risk surgery)Prevent ion of systemic emboli sm from: Acute myocardial infa rction Valvular heart disease Atrial fibrillation Mechanical pros thetic heart valves (2.5-3.5) IS PATIENT ON ANTICOAGULANTS? YLIST ANTICOAGULANTS HEPARINTHROMBOPLASTIN TIME [id number] 03:21:00 Test Item Value Reference Range Interpretation Comments THROMBOPLASTIN TIME PARTIAL 44.3 seconds 23.0-37.0 H (test code = PTT) IS PATIENT ON ANTICOAGULANTS? YLIST ANTICOAGULANTS HEPARINTHROMBOPLASTIN TIME [id number] 15:30:00 Test Item Value Reference Range Interpretation Comments THROMBOPLASTIN TIME PARTIAL 39.5 seconds 23.0-37.0 H (test code = PTT) IS PATIENT ON ANTICOAGULANTS? YLIST ANTICOAGULANTS HEPARIN- XR CHEST 1 V 2020-12-16 08:44:00 [facility])Name: BERKLEY SAMS : 1985 Sex: M FAX: Crissy Jolly NP Anza: St: ADM FAX: Basil Mitchell Name: BERKLEY SAMS [facility] : 1985 Age/S: 35/M [address] [facility] Unit #: [id number] Loc: V.4024 [place] [address] Phys: Crissy Jolly NP Acct: [id number] Dis Date: Status: ADM IN PHONE #: [phone] Exam Date: FAX #: [phone] Reason: Acute Respiratory Failure EXAMS: CPT CODE: [id number] XR CHEST 1 V [id number] REASON FOR EXAM: Acute Respiratory Failure Exam Order Date: 12/16/2020 2:00 AM Ordering Evie: Crissy Jolly NP PROCEDURE: - XR CHEST 1 V COMPARISON: Chest x-ray the previous morning FINDINGS: The lungs are clear. There is no pleural effusion or pneumothorax. Pulmonary vascularity is within normal limits. Cardiomediastinal silhouette is normal in size for technique. The mediastinal contours are within normal limits. Musculoskeletal structures are within normal limits. The visualized upper abdomenis within normal limits. IMPRESSION: No acute cardiopulmonary process. Location: [facility] at 0844 Reported and signed by: Rene Boggs MD CC: Crissy Jolly NP; Basil Elizalde MD Technologist: RT JORGE(Shantal) Trnscrd Date/Time/By: 12/16/2020 (0330) : By: [email or web address] Orig Print D/T: S: 12/16/2020 (5036) PAGE 1 Signed Report THROMBOPLASTIN TIME [id number] 06:52:00 Test Item Value Reference Range Interpretation Comments THROMBOPLASTIN TIME PARTIAL 81.0 seconds 23.0-37.0 H (test code = PTT) IS PATIENT ON ANTICOAGULANTS? YLIST ANTICOAGULANTS HEPARINCOMMENTS TO FORK REPAIRER: PLEASE DRAW LAB FROM LEFT HAND/ARM.PROTHROMBIN [id number] 06:52:00 Test Item Value Reference Range Interpretation Comments PROTHROMBIN TIME 19.8 seconds 9.0-14.0 H PATIENT (test code = PTP) INTERNATIONAL NORMAL 1.7 0.8-1.2 H The the rapeutic range RATIO (test code = for oral INR) anticoagulant t herapy formost indicat ions is an internati onal normalized rati o (INR)of between 2.0 and 3.0. The recommended therapeutic INR range for various cli nical situations is l isted below: Clinical Situat ion INR range Pulmonary embol ism treatment (2.0-3.0)Venous thrombosis treatmentVenous thrombosis prophylaxis (hi gh risk surgery)Prevent ion of systemic emboli sm from: Acute myocardial infa rction Valvular heart disease Atrial fibrillation Mechanical pros thetic heart valves (2.5-3.5) IS PATIENT ON ANTICOAGULANTS? NCOMPREHENSIVE METABOLIC [id number] 01:35:00 Test Item Value Reference Range Interpretation Comments SODIUM (test code = 138 mmol/L 136-145 N NA) POTASSIUM (test code 3.3 mmol/L 3.5-5.1 L = K) CHLORIDE (test code = 105.0 mmol/L 98-107 N CL) CARBON DIOXIDE (test 28.0 mmol/L 21-32 N code = CO2) ANION GAP (test code 8.3 10-20 L = GAP) GLUCOSE (test code = 128 mg/dL 74-106 H GLU) BLOOD UREA NITROGEN 9 mg/dL 7-18 N (test code = BUN) GLOMERULAR FILTRATION > 60 mL/min See_Comment Estima dimitri GFR by RATE (test code = using Lyla fied MDRD GFR) formula.Chronic kidney disease is defined as eith er kidney damageor GFR <60 mL/min/1.73 m2 for >3 months. [Automated mess age] The system [email or web address] generated this result transmit dimitri reference range : >=60. The refer ence range was not u sed to interpret th is result as normal/abnormal . CREATININE (test code 0.70 mg/dL 0.7-1.3 N = CREAT) BUN/CREATININE RATIO 12.3 10-20 N (test code = BUN/CREA) TOTAL PROTEIN (test 6.7 gram/dL 6.4-8.2 N code = PROT) ALBUMIN (test code = 3.5 g/dL 3.4-5.0 N ALB) GLOBULIN (test code = 3.2 gram/dL 2.7-4.2 N GLOB) ALBUMIN/GLOBULIN 1.1 0.75-1.50 N RATIO (test code = A/G) CALCIUM (test code = 9.2 mg/dL 8.5-10.1 N CA) BILIRUBIN TOTAL (test 0.30 mg/dL 0.0-1.0 N code = BILT) SGOT/AST (test code = 68 IUnit/L 15-37 H AST) SGPT/ALT (test code = 82 IUnit/L 12-78 H ALT) ALKALINE PHOSPHATASE 80 IUnit/L 45-117 N Note change in TOTAL (test code = reference range due ALKP) to change in reagent. [id number] 01:35:00 Test Item Value Reference Range Interpretation Comments PHOSPHORUS (test code = PHOS) 4.0 mg/dL 2.5-4.9 N [id number] 01:35:00 Test Item Value Reference Range Interpretation Comments MAGNESIUM (test code = MAG) 1.6 mg/dL 1.8-2.4 L POC CALCIUM [id number] 01:13:00 Test Item Value Reference Range Interpretation Comments POC CALCIUM IONIZED (test code = 1.17 mmol/L 1.12-1.32 N CAIP) THROMBOPLASTIN TIME [id number] 01:08:00 Test Item Value Reference Range Interpretation Comments THROMBOPLASTIN TIME PARTIAL 54.5 seconds 23.0-37.0 H (test code = PTT) IS PATIENT ON ANTICOAGULANTS? YLIST ANTICOAGULANTS HEPARINCBC W/AUTO DIFF 2020-12-16 01:00:00 Test Item Value Reference Range Interpretation Comments WHITE BLOOD CELL (test code = 9.9 K/mm3 4.5-12.5 N WBC) RED BLOOD CELL (test code = 4.17 mill/mm3 4.0-5.8 N RBC) HEMOGLOBIN (test code = HGB) 13.1 gram/dL 13.0-17.5 N HEMATOCRIT (test code = HCT) 40.2 % 42.0-52.0 L MEAN CELL VOLUME (test code = 96.4 fL 80-98 N MCV) MEAN CELL HGB (test code = MCH) 31.4 picogram 27.0-33.0 N MEAN CELL HGB CONCETRATION 32.6 gram/dL 33.0-36.0 L (test code = MCHC) RED CELL DISTRIBUTION WIDTH 13.0 % 11.6-16.2 N (test code = RDW) RED CELL DISTRIBUTION WIDTH SD 45.6 fL 37.0-51.0 N (test code = RDW-SD) PLATELET COUNT (test code = 387 K/mm3 150-450 N PLT) MEAN PLATELET VOLUME (test code 9.4 fL 6.7-11.0 N = MPV) NEUTROPHIL % (test code = NT%) 57.1 % 39.0-69.0 N IMMATURE GRANULOCYTE % (test 1.1 % 0.0-5.0 N code = IG%) LYMPHOCYTE % (test code = LY%) 33.3 % 25.0-55.0 N MONOCYTE % (test code = MO%) 7.4 % 0.0-10.0 N EOSINOPHIL % (test code = EO%) 0.1 % 0.0-5.0 N BASOPHIL % (test code = BA%) 1.0 % 0.0-1.0 N NUCLEATED RBC % (test code = 0.0 % 0-0 N NRBC%) NEUTROPHIL # (test code = NT#) 5.67 K/mm3 1.8-7.7 N IMMATURE GRANULOCYTE # (test 0.11 x10 3/uL 0-0.03 H code = IG#) LYMPHOCYTE # (test code = LY#) 3.30 K/mm3 1.0-5.0 N MONOCYTE # (test code = MO#) 0.73 K/mm3 0-0.8 N EOSINOPHIL # (test code = EO#) 0.01 K/mm3 0.0-0.5 N BASOPHIL # (test code = BA#) 0.10 K/mm3 0.0-0.2 N NUCLEATED RBC # (test code = 0.00 K/mm3 0.0-0.1 N NRBC#) MANUAL DIFF REQUIRED (test code NO = MDIFF) THROMBOPLASTIN TIME [id number] 19:01:00 Test Item Value Reference Range Interpretation Comments THROMBOPLASTIN TIME PARTIAL 55.2 seconds 23.0-37.0 H (test code = PTT) IS PATIENT ON ANTICOAGULANTS? YLIST ANTICOAGULANTS HEPARINTHROMBOPLASTIN TIME [id number] 10:47:00 Test Item Value Reference Range Interpretation Comments THROMBOPLASTIN TIME 91.6 seconds 23.0-37.0 HH Results called to PARTIAL (test code = [id number] by PTT) V.LAB.JQ 1047Critical results verifie d and read back b y Nurse? Y IS PATIENT ON ANTICOAGULANTS? YLIST ANTICOAGULANTS HEPARIN- XR CHEST 1 V 2020-12-15 08:09:00 [facility]Name: BERKLEY SAMS : 1985 Sex: M FAX: Crissy Jolly NP Anza: St: ADM FAX: Mónica Poe MD Name: BERKLEY SAMS [facility] : 1985 Age/S: 35/M [address] [facility] Unit #: [id number] Loc: V.4024 [place] [address] Phys: Crissy Jolly NP Acct: [id number] Dis Date: Status: ADM IN PHONE #: [phone] Exam Date: 12/15/2020 0738FAX #: [phone] Reason: Acute Respiratory Failure EXAMS: CPT CODE: [id number] XR CHEST 1 V [id number] FOR EXAM: Acute Respiratory Failure Exam Order Date: 12/15/2020 2:00 AM Ordering M.Daniel: Crissy Jolly NP PROCEDURE: - XR CHEST 1 V COMPARISON: Chest x-ray the previous morning FINDINGS: The lungs are clear other than mild subsegmental atelectasis in the lung bases. There is no pleural effusion orpneumothorax. Pulmonary vascularity is within normal limits. Cardiomediastinal silhouette is normal in size for technique. The mediastinal contours are within normal limits. Musculoskeletal structures are within normal limits. The visualized upper abdomen is within normal limits. IMPRESSION: No acute cardiopulmonary process. Location: [facility] at 0809 Reported and signed by: Rene Boggs MD CC: Crissy Jolly KEY ATTENDANT; Mónica Cantu MD Technologist: Julienne Duvall(R) Trnscrd Date/Time/By: 12/15/2020 (808) : By: [email or web address] Orig Print D/T: S: 12/15/2020 (7746) PAGE 1 Signed ReportPOC CALCIUM [id number] 05:36:00 Test Item Value Reference Range Interpretation Comments POC CALCIUM IONIZED (test code = 1.21 mmol/L 1.12-1.32 N CAIP) COMPREHENSIVE METABOLIC [id number] 04:31:00 Test Item Value Reference Range Interpretation Comments SODIUM (test code = 140 mmol/L 136-145 N NA) POTASSIUM (test code 3.3 mmol/L 3.5-5.1 L = K) CHLORIDE (test code = 105.0 mmol/L 98-107 N CL) CARBON DIOXIDE (test 28.0 mmol/L 21-32 N code = CO2) ANION GAP (test code 10.3 10-20 N = GAP) GLUCOSE (test code = 93 mg/dL 74-106 N GLU) BLOOD UREA NITROGEN 10 mg/dL 7-18 N (test code = BUN) GLOMERULAR FILTRATION > 60 mL/min See_Comment Estima dimitri GFR by RATE (test code = using Lyla fied MDRD GFR) formula.Chronic kidney disease is defined as eith er kidney damageor GFR <60 mL/min/1.73 m2 for >3 months. [Automated mess age] The system [email or web address] generated this result transmit dimitri reference range : >=60. The refer ence range was not u sed to interpret th is result as normal/abnormal . CREATININE (test code 0.70 mg/dL 0.7-1.3 N = CREAT) BUN/CREATININE RATIO 14.3 10-20 N (test code = BUN/CREA) TOTAL PROTEIN (test 6.8 gram/dL 6.4-8.2 N code = PROT) ALBUMIN (test code = 3.5 g/dL 3.4-5.0 N ALB) GLOBULIN (test code = 3.3 gram/dL 2.7-4.2 N GLOB) ALBUMIN/GLOBULIN 1.1 0.75-1.50 N RATIO (test code = A/G) CALCIUM (test code = 9.3 mg/dL 8.5-10.1 N CA) BILIRUBIN TOTAL (test 0.40 mg/dL 0.0-1.0 N code = BILT) SGOT/AST (test code = 45 IUnit/L 15-37 H AST) SGPT/ALT (test code = 64 IUnit/L 12-78 N ALT) ALKALINE PHOSPHATASE 73 IUnit/L 45-117 N Note change in TOTAL (test code = reference range due ALKP) to change in reagent. INFORMED NURSE [id number] 12/15/20 [id number] 04:31:00 Test Item Value Reference Range Interpretation Comments PHOSPHORUS (test code = PHOS) 3.3 mg/dL 2.5-4.9 N INFORMED NURSE [id number] 12/15/20 [id number] 04:31:00 Test Item Value Reference Range Interpretation Comments MAGNESIUM (test code = MAG) 1.5 mg/dL 1.8-2.4 L INFORMED NURSE [id number] 12/15/20 0222THROMBOPLASTIN TIME PARTIAL 2020-12-15 04:07:00 Test Item Value Reference Range Interpretation Comments THROMBOPLASTIN TIME 86.3 seconds 23.0-37.0 HH Results called to PARTIAL (test code = [id number] by PTT) V.LAB.GP 0407Critical results verifie d and read back b y Nurse? Y HS INFORMED NURSE [id number] 12/15/20 0224NOTIFIED RN [id number] PATIENT ON ANTICOAGULANTS? YLIST ANTICOAGULANTS HEPARINPROTHROMBIN [id number] 03:58:00 Test Item Value Reference Range Interpretation Comments PROTHROMBIN TIME 17.4 seconds 9.0-14.0 H PATIENT (test code = PTP) INTERNATIONAL NORMAL 1.5 0.8-1.2 H The the rapeutic range RATIO (test code = for oral INR) anticoagulant t herapy formost indicat ions is an internati onal normalized rati o (INR)of between 2.0 and 3.0. The recommended therapeutic INR range for various cli nical situations is l isted below: Clinical Situat ion INR range Pulmonary embol ism treatment (2.0-3.0)Venous thrombosis treatmentVenous thrombosis prophylaxis (hi gh risk surgery)Prevent ion of systemic emboli sm from: Acute myocardial infa rction Valvular heart disease Atrial fibrillation Mechanical pros thetic heart valves (2.5-3.5) INFORMED NURSE [id number] 12/15/20 0223IS PATIENT ON ANTICOAGULANTS? NCBC W/AUTO [id number] 03:58:00 Test Item Value Reference Range Interpretation Comments WHITE BLOOD CELL (test 12.3 K/mm3 4.5-12.5 N code = WBC) RED BLOOD CELL (test 4.03 mill/mm3 4.0-5.8 N code = RBC) HEMOGLOBIN (test code 12.8 gram/dL 13.0-17.5 L = HGB) HEMATOCRIT (test code 38.6 % 42.0-52.0 L = HCT) MEAN CELL VOLUME (test 95.8 fL 80-98 N code = MCV) MEAN CELL HGB (test 31.8 picogram 27.0-33.0 N code = MCH) MEAN CELL HGB 33.2 gram/dL 33.0-36.0 N CONCETRATION (test code = MCHC) RED CELL DISTRIBUTION 12.9 % 11.6-16.2 N WIDTH (test code = RDW) RED CELL DISTRIBUTION 45.0 fL 37.0-51.0 N WIDTH SD (test code = RDW-SD) PLATELET COUNT (test 362 K/mm3 150-450 RESULT VERIFIED BY code = PLT) REPEAT ANALYSIS MEAN PLATELET VOLUME 9.7 fL 6.7-11.0 N (test code = MPV) NEUTROPHIL % (test 64.8 % 39.0-69.0 N code = NT%) IMMATURE GRANULOCYTE % 0.9 % 0.0-5.0 N (test code = IG%) LYMPHOCYTE % (test 26.0 % 25.0-55.0 N code = LY%) MONOCYTE % (test code 7.5 % 0.0-10.0 N = MO%) EOSINOPHIL % (test 0.2 % 0.0-5.0 N code = EO%) BASOPHIL % (test code 0.6 % 0.0-1.0 N = BA%) NUCLEATED RBC % (test 0.0 % 0-0 N code = NRBC%) NEUTROPHIL # (test 8.00 K/mm3 1.8-7.7 H code = NT#) IMMATURE GRANULOCYTE # 0.11 x10 3/uL 0-0.03 H (test code = IG#) LYMPHOCYTE # (test 3.20 K/mm3 1.0-5.0 N code = LY#) MONOCYTE # (test code 0.92 K/mm3 0-0.8 H = MO#) EOSINOPHIL # (test 0.02 K/mm3 0.0-0.5 N code = EO#) BASOPHIL # (test code 0.08 K/mm3 0.0-0.2 N = BA#) NUCLEATED RBC # (test 0.00 K/mm3 0.0-0.1 N code = NRBC#) MANUAL DIFF REQUIRED NO (test code = MDIFF) INFORMED NURSE [id number] 12/15/20 0224THROMBOPLASTIN TIME PARTIAL 2020-12-14 17:57:00 Test Item Value Reference Range Interpretation Comments THROMBOPLASTIN TIME 85.3 seconds 23.0-37.0 HH Results called to PARTIAL (test code = [id number] by PTT) V.LAB.LT 1757Critical results verifie d and read back b y Nurse? Y IS PATIENT ON ANTICOAGULANTS? YLIST ANTICOAGULANTS HEPARINPROTHROMBIN TIME 2020-12-14 16:16:00 Test Item Value Reference Range Interpretation Comments PROTHROMBIN TIME 15.5 seconds 9.0-14.0 H PATIENT (test code = PTP) INTERNATIONAL NORMAL 1.3 0.8-1.2 H The the rapeutic range RATIO (test code = for oral INR) anticoagulant t herapy formost indicat ions is an internati onal normalized rati o (INR)of between 2.0 and 3.0. The recommended therapeutic INR range for various cli nical situations is l isted below: Clinical Situat ion INR range Pulmonary embol ism treatment (2.0-3.0)Venous thrombosis treatmentVenous thrombosis prophylaxis ([facility] risk surgery)Prevent ion of systemic emboli sm from: Acute myocardial infa rction Valvular heart disease Atrial fibrillation Mechanical pros thetic heart valves (2.5-3.5) IS PATIENT ON ANTICOAGULANTS? YLIST ANTICOAGULANTS HEPARINPROTHROMBIN TIME 2020-12-14 10:15:00 Test Item Value Reference Range Interpretation Comments PROTHROMBIN TIME 15.5 seconds 9.0-14.0 H PATIENT (test code = PTP) INTERNATIONAL NORMAL 1.3 0.8-1.2 H The the rapeutic range RATIO (test code = for oral INR) anticoagulant t herapy formost indicat ions is an internati onal normalized rati o (INR)of between 2.0 and 3.0. The recommended therapeutic INR range for various cli nical situations is l isted below: Clinical Situat ion INR range Pulmonary embol ism treatment (2.0-3.0)Venous thrombosis treatmentVenous thrombosis prophylaxis (hi gh risk surgery)Prevent ion of systemic emboli sm from: Acute myocardial infa rction Valvular heart disease Atrial fibrillation Mechanical pros thetic heart valves (2.5-3.5) IS PATIENT ON ANTICOAGULANTS? YLIST ANTICOAGULANTS COUMADINTHROMBOPLASTIN TIME [id number] 09:58:00 Test Item Value Reference Range Interpretation Comments THROMBOPLASTIN TIME PARTIAL 58.8 seconds 23.0-37.0 H (test code = PTT) IS PATIENT ON ANTICOAGULANTS? YLIST ANTICOAGULANTS HEPARIN- XR CHEST 1 V 2020-12-14 05:52:00 [facility] ALE[facility] OSBORNE KLAUDIA : 1985 Sex: M FAX: Mónica Poe MD Anza: B St: ADM FAX: Tyesha Brooks NP Name: CORINNAKyawBERKLEYROGER RUDOLPH [facility] : 1985 Age/S: 35/M [address] [facility] Unit #: [id number] Loc: V.4024 [place] [address] Phys: Tyesha Chavez NP Acct: [id number] Dis Date: Status: ADM IN PHONE #: [phone] Exam Date: 12/14/2020 0509 FAX #: [phone] Reason: Intubated EXAMS: CPT CODE: [id number] XR CHEST 1 V [id number] EXAMINATION: - XR CHEST 1 V LOCATION: H61 INDICATION/CLINICAL HISTORY: Intubated COMPARISON: Chest x-ray 12/13/2020 TECHNIQUE: AP view of the chest. FINDINGS: Cardiac silhouette is normal in size. Unchanged mild patchy bibasilar opacities. No new airspace disease. No appreciable pneumothorax or pleural effusions. Osseous structures are unchanged. IMPRESSION: No significant interval change. Electronically S igned by Lindsay Gray M.D. on 12/14/2020 at 0544 Reported and signed by: Lindsay Gray M.D. CC: Mónica Cantu MD; Tyesha Brooks NP Technologist: ROXANNE MCCORMICK JR RT(R) Trnscrd Date/Time/By: 12/14/2020 (0552) : By: [email or web address] Orig Print D/T: S: 12/14/2020 (0534) PAGE 1 Signed ReportBASIC METABOLIC [id number] 02:28:00 Test Item Value Reference Range Interpretation Comments SODIUM (test code = 141 mmol/L 136-145 N NA) POTASSIUM (test code 3.2 mmol/L 3.5-5.1 L = K) CHLORIDE (test code 106.0 mmol/L 98-107 N = CL) CARBON DIOXIDE (test 28.0 mmol/L 21-32 N code = CO2) ANION GAP (test code 10.2 10-20 N = GAP) GLUCOSE (test code = 96 mg/dL 74-106 N GLU) BLOOD UREA NITROGEN 10 mg/dL 7-18 N (test code = BUN) GLOMERULAR > 60 mL/min See_Comment Estimated GFR b y FILTRATION RATE using Modifi ed MDRD (test code = GFR) formula. ronic kidney disease is defined as eith er kidney damageor GFR <60 mL/min/1.73 m2 for >3 months. [Automated mess age] The system [email or web address] generated this result transmitted ref erence range: >=60. Th e reference range was not used to int erpret this result as normal/abnormal . CREATININE (test 0.80 mg/dL 0.7-1.3 N code = CREAT) BUN/CREATININE RATIO 12.2 10-20 N (test code = BUN/CREA) CALCIUM (test code = 8.9 mg/dL 8.5-10.1 N CA) [id number] 02:28:00 Test Item Value Reference Range Interpretation Comments PHOSPHORUS (test code = PHOS) 1.7 mg/dL 2.5-4.9 L [id number] 02:28:00 Test Item Value Reference Range Interpretation Comments MAGNESIUM (test code = MAG) 1.5 mg/dL 1.8-2.4 L POC CALCIUM [id number] 02:21:00 Test Item Value Reference Range Interpretation Comments POC CALCIUM IONIZED (test code = 1.04 mmol/L 1.12-1.32 L CAIP) THROMBOPLASTIN TIME [id number] 02:11:00 Test Item Value Reference Range Interpretation Comments THROMBOPLASTIN TIME PARTIAL 62.6 seconds 23.0-37.0 H (test code = PTT) IS PATIENT ON ANTICOAGULANTS? YLIST ANTICOAGULANTS HEPARINCBC W/AUTO DIFF 2020-12-14 02:04:00 Test Item Value Reference Range Interpretation Comments WHITE BLOOD CELL (test code = 13.2 K/mm3 4.5-12.5 H WBC) RED BLOOD CELL (test code = 4.03 mill/mm3 4.0-5.8 N RBC) HEMOGLOBIN (test code = HGB) 12.4 gram/dL 13.0-17.5 L HEMATOCRIT (test code = HCT) 39.2 % 42.0-52.0 L MEAN CELL VOLUME (test code = 97.3 fL 80-98 N MCV) MEAN CELL HGB (test code = MCH) 30.8 picogram 27.0-33.0 N MEAN CELL HGB CONCETRATION 31.6 gram/dL 33.0-36.0 L (test code = MCHC) RED CELL DISTRIBUTION WIDTH 12.9 % 11.6-16.2 N (test code = RDW) RED CELL DISTRIBUTION WIDTH SD 46.2 fL 37.0-51.0 N (test code = RDW-SD) PLATELET COUNT (test code = 309 K/mm3 150-450 N PLT) MEAN PLATELET VOLUME (test code 9.5 fL 6.7-11.0 N = MPV) NEUTROPHIL % (test code = NT%) 72.8 % 39.0-69.0 H IMMATURE GRANULOCYTE % (test 0.5 % 0.0-5.0 N code = IG%) LYMPHOCYTE % (test code = LY%) 18.7 % 25.0-55.0 L MONOCYTE % (test code = MO%) 7.5 % 0.0-10.0 N EOSINOPHIL % (test code = EO%) 0.0 % 0.0-5.0 N BASOPHIL % (test code = BA%) 0.5 % 0.0-1.0 N NUCLEATED RBC % (test code = 0.0 % 0-0 N NRBC%) NEUTROPHIL # (test code = NT#) 9.64 K/mm3 1.8-7.7 H IMMATURE GRANULOCYTE # (test 0.07 x10 3/uL 0-0.03 H code = IG#) LYMPHOCYTE # (test code = LY#) 2.47 K/mm3 1.0-5.0 N MONOCYTE # (test code = MO#) 0.99 K/mm3 0-0.8 H EOSINOPHIL # (test code = EO#) 0.00 K/mm3 0.0-0.5 N BASOPHIL # (test code = BA#) 0.06 K/mm3 0.0-0.2 N NUCLEATED RBC # (test code = 0.00 K/mm3 0.0-0.1 N NRBC#) MANUAL DIFF REQUIRED (test code NO = MDIFF) BASIC METABOLIC [id number] 18:38:00 Test Item Value Reference Range Interpretation Comments SODIUM (test code = 140 mmol/L 136-145 N NA) POTASSIUM (test code 3.5 mmol/L 3.5-5.1 N = K) CHLORIDE (test code 105.0 mmol/L 98-107 N = CL) CARBON DIOXIDE (test 26.0 mmol/L 21-32 N code = CO2) ANION GAP (test code 12.5 10-20 N = GAP) GLUCOSE (test code = 106 mg/dL 74-106 N GLU) BLOOD UREA NITROGEN 9 mg/dL 7-18 N (test code = BUN) GLOMERULAR > 60 mL/min See_Comment Estimated GFR b y FILTRATION RATE using Modifi ed MDRD (test code = GFR) formula.Ch ronic kidney disease is defined as eith er kidney damageor GFR <60 mL/min/1.73 m2 for >3 months. [Automated mess age] The system [employer] generated this result transmitted ref erence range: >=60. Th e reference range was not used to int erpret this result as normal/abnormal . CREATININE (test 0.60 mg/dL 0.7-1.3 L code = CREAT) BUN/CREATININE RATIO 14.3 10-20 N (test code = BUN/CREA) CALCIUM (test code = 9.1 mg/dL 8.5-10.1 N CA) THROMBOPLASTIN TIME [id number] 18:30:00 Test Item Value Reference Range Interpretation Comments THROMBOPLASTIN TIME PARTIAL 31.6 seconds 23.0-37.0 N (test code = PTT) IS PATIENT ON ANTICOAGULANTS? [employer]LIST ANTICOAGULANTS HEPARIN COUMADINPROTHROMBIN [id number] 11:32:00 Test Item Value Reference Range Interpretation Comments PROTHROMBIN TIME 13.2 seconds 9.0-14.0 N PATIENT (test code = PTP) INTERNATIONAL NORMAL 1.2 0.8-1.2 N The the rapeutic range RATIO (test code = for oral INR) anticoagulant t herapy formost indicat ions is an internati onal normalized rati o (INR)of between 2.0 and 3.0. The recommended therapeutic INR range for various cli nical situations is l isted below: Clinical Situat ion INR range Pulmonary embol ism treatment (2.0-3.0)Venous thrombosis treatmentVenous thrombosis prophylaxis (hi gh risk surgery)Prevent ion of systemic emboli sm from: Acute myocardial infa rction Valvular heart disease Atrial fibrillation Mechanical pros thetic heart valves (2.5-3.5) IS PATIENT ON ANTICOAGULANTS? YLIST ANTICOAGULANTS COUMADINTHROMBOPLASTIN TIME [id number] 11:32:00 Test Item Value Reference Range Interpretation Comments THROMBOPLASTIN TIME PARTIAL 28.9 seconds 23.0-37.0 N (test code = PTT) IS PATIENT ON ANTICOAGULANTS? YLIST ANTICOAGULANTS COUMADINPOC CALCIUM IONIZED 2020-12-13 06:42:00 Test Item Value Reference Range Interpretation Comments POC CALCIUM IONIZED (test code = 1.11 mmol/L 1.12-1.32 L CAIP) BASIC METABOLIC [id number] 05:57:00 Test Item Value Reference Range Interpretation Comments SODIUM (test code = 144 mmol/L 136-145 N NA) POTASSIUM (test code 3.3 mmol/L 3.5-5.1 L = K) CHLORIDE (test code 110.0 mmol/L 98-107 H = CL) CARBON DIOXIDE (test 25.0 mmol/L 21-32 N code = CO2) ANION GAP (test code 12.3 10-20 N = GAP) GLUCOSE (test code = 101 mg/dL 74-106 N GLU) BLOOD UREA NITROGEN 8 mg/dL 7-18 N (test code = BUN) GLOMERULAR > 60 mL/min See_Comment Estimated GFR b y FILTRATION RATE using Modifi ed MDRD (test code = GFR) formula.Ch ronic kidney disease is defined as eith er kidney damageor GFR <60 mL/min/1.73 m2 for >3 months. [Automated mess age] The system [email or web address] generated this result transmitted ref erence range: >=60. Th e reference range was not used to int erpret this result as normal/abnormal . CREATININE (test 0.70 mg/dL 0.7-1.3 N code = CREAT) BUN/CREATININE RATIO 11.4 10-20 N (test code = BUN/CREA) CALCIUM (test code = 8.8 mg/dL 8.5-10.1 N CA) [id number] 05:57:00 Test Item Value Reference Range Interpretation Comments PHOSPHORUS (test code = PHOS) 3.1 mg/dL 2.5-4.9 N [id number] 05:57:00 Test Item Value Reference Range Interpretation Comments MAGNESIUM (test code = MAG) 1.7 mg/dL 1.8-2.4 L PROTHROMBIN [id number] 05:31:00 Test Item Value Reference Range Interpretation Comments PROTHROMBIN TIME 12.6 seconds 9.0-14.0 N PATIENT (test code = PTP) INTERNATIONAL NORMAL 1.1 0.8-1.2 N The the rapeutic range RATIO (test code = for oral INR) anticoagulant t herapy formost indicat ions is an internati onal normalized rati o (INR)of between 2.0 and 3.0. The recommended therapeutic INR range for various cli nical situations is l isted below: Clinical Situat ion INR range Pulmonary embol ism treatment (2.0-3.0)Venous thrombosis treatmentVenous thrombosis prophylaxis (hi gh risk surgery)Prevent ion of systemic emboli sm from: Acute myocardial infa rction Valvular heart disease Atrial fibrillation Mechanical pros thetic heart valves (2.5-3.5) IS PATIENT ON ANTICOAGULANTS? YLIST ANTICOAGULANTS COUMADINCBC W/AUTO DIFF 2020-12-13 05:23:00 Test Item Value Reference Range Interpretation Comments WHITE BLOOD CELL (test code = 10.5 K/mm3 4.5-12.5 N WBC) RED BLOOD CELL (test code = 3.87 mill/mm3 4.0-5.8 L RBC) HEMOGLOBIN (test code = HGB) 12.0 gram/dL 13.0-17.5 L HEMATOCRIT (test code = HCT) 36.8 % 42.0-52.0 L MEAN CELL VOLUME (test code = 95.1 fL 80-98 N MCV) MEAN CELL HGB (test code = MCH) 31.0 picogram 27.0-33.0 N MEAN CELL HGB CONCETRATION 32.6 gram/dL 33.0-36.0 L (test code = MCHC) RED CELL DISTRIBUTION WIDTH 13.2 % 11.6-16.2 N (test code = RDW) RED CELL DISTRIBUTION WIDTH SD 45.9 fL 37.0-51.0 N (test code = RDW-SD) PLATELET COUNT (test code = 293 K/mm3 150-450 N PLT) MEAN PLATELET VOLUME (test code 9.5 fL 6.7-11.0 N = MPV) NEUTROPHIL % (test code = NT%) 76.9 % 39.0-69.0 H IMMATURE GRANULOCYTE % (test 0.5 % 0.0-5.0 N code = IG%) LYMPHOCYTE % (test code = LY%) 12.8 % 25.0-55.0 L MONOCYTE % (test code = MO%) 9.3 % 0.0-10.0 N EOSINOPHIL % (test code = EO%) 0.0 % 0.0-5.0 N BASOPHIL % (test code = BA%) 0.5 % 0.0-1.0 N NUCLEATED RBC % (test code = 0.0 % 0-0 N NRBC%) NEUTROPHIL # (test code = NT#) 8.10 K/mm3 1.8-7.7 H IMMATURE GRANULOCYTE # (test 0.05 x10 3/uL 0-0.03 H code = IG#) LYMPHOCYTE # (test code = LY#) 1.35 K/mm3 1.0-5.0 N MONOCYTE # (test code = MO#) 0.98 K/mm3 0-0.8 H EOSINOPHIL # (test code = EO#) 0.00 K/mm3 0.0-0.5 N BASOPHIL # (test code = BA#) 0.05 K/mm3 0.0-0.2 N NUCLEATED RBC # (test code = 0.00 K/mm3 0.0-0.1 N NRBC#) MANUAL DIFF REQUIRED (test code NO = MDIFF) - XR CHEST 1 [id number] 02:12:00 [facility] ([facility])Name: BERKLEY SAMS KLAUDIA : 1985 Sex: M FAX: Mónica Poe MD Anza: B St: ADM FAX: Tyesha Brooks NP Name: BERKLEY SAMS [facility] :1985 Age/S: 35/M [address] [facility] Unit #: [id number] Loc: V.S18 [place] [address] Phys: Tyesha Brooks NP Acct: [id number] Dis Date: Status: ADM IN PHONE #: [phone] Exam Date: 12/13/2020 0145 FAX #: [phone] Reason: Intubated EXAMS: CPT CODE: [id number] XR CHEST 1 V 21921 LOCATION:Q15 HISTORY: 35-year-old male who presents with an overdose. COMMENT: A frontal chest radiograph was obtained at 1:34 a.m., and compared to a prior study of December 12, 2020 obtained at 4:10 a.m. Patchy consolidations are seen in both lung bases. The cardiac silhouette and mediastinal anatomy is unremarkable. The skeleton and soft tissues are unremarkable. Since the prior study the endotracheal tube and nasogastric tube have been removed. IMPRESSION: Patchy bibasal consolidation is seen in this patient's lungs. at 0212 Reported and signed by: Naveen Lanier M.D. CC: Mónica Cantu MD; Tyesha Brooks NP Technologist: Pia Herrera Trncharlenerd Date/Time/By: 12/13/2020 (211) : By: [email or web address] Orig Print D/T: S: 12/13/2020 (214) PAGE1 Signed ReportTHROMBOPLASTIN TIME [id number] 22:27:00 Test Item Value Reference Range Interpretation Comments THROMBOPLASTIN TIME PARTIAL 49.8 seconds 23.0-37.0 H (test code = PTT) IS PATIENT ON ANTICOAGULANTS? YLIST ANTICOAGULANTS HEPARINPROTHROMBIN TIME 2020-12-12 13:00:00 Test Item Value Reference Range Interpretation Comments PROTHROMBIN TIME 12.6 seconds 9.0-14.0 N PATIENT (test code = PTP) INTERNATIONAL NORMAL 1.1 0.8-1.2 N The the rapeutic range RATIO (test code = for oral INR) anticoagulant t herapy formost indicat ions is an internati onal normalized rati o (INR)of between 2.0 and 3.0. The recommended therapeutic INR range for various cli nical situations is l isted below: Clinical Situat ion INR range Pulmonary embol ism treatment (2.0-3.0)Venous thrombosis treatmentVenous thrombosis prophylaxis (hi gh risk surgery)Prevent ion of systemic emboli sm from: Acute myocardial infa rction Valvular heart disease Atrial fibrillation Mechanical pros thetic heart valves (2.5-3.5) IS PATIENT ON ANTICOAGULANTS? YLIST ANTICOAGULANTS HEPARINTHROMBOPLASTIN TIME [id number] 13:00:00 Test Item Value Reference Range Interpretation Comments THROMBOPLASTIN TIME PARTIAL 36.1 seconds 23.0-37.0 N (test code = PTT) IS PATIENT ON ANTICOAGULANTS? YLIST ANTICOAGULANTS HEPARIN- XR CHEST 1 V 2020-12-12 07:44:00 [facility])Name: BERKLEY SAMS KLAUDIA : 1985 Sex: M FAX: Rosaura Tidwell Anza: B St: ADM FAX: Tyesha Brooks KEY ATTENDANT Name: BERKLEY SAMS [facility] : 1985 Age/S: 35/M [address] [facility] Unit #: [id number] Loc: V.S18 [place] [address] Phys: Tyesha Neely NP Acct: [id number] Dis Date: Status: ADM IN PHONE #: [phone] Exam Date: 12/12/2020 0405 FAX #: [phone] Reason: Intubated EXAMS: CPT CODE: [id number] XR CHEST 1 V [id number] REASON FOR EXAM: Intubated Exam Order Date: 12/12/2020 2:00 AM Ordering M.Daniel: Tyesha Brooks NP PROCEDURE: - XR CHEST 1 V COMPARISON: Chest x-ray the previous morning FINDINGS/ IMPRESSION: Lines and tubes areunchanged from the previous exam. Lung volumes are diminished and there are opacities in the lung bases which may represent any combination of atelectasis and consolidation. These findings appear similar to the previous exam. Heart is enlarged but stable in size. No acute skeletal findings. Location: [facility] at 0744 Reported and signed by: Villa PARKINSON CC: Rosaura Tidwell MD; Tyesha Brooks NP Technologist: Pia Herrera Trnscrd Date/Time/By: 12/12/2020 (0761) : By: [email or web address] Orig Print D/T: S: 12/12/2020 (3778) PAGE 1 Signed ReportBASIC METABOLIC [id number] 06:42:00 Test Item Value Reference Range Interpretation Comments SODIUM (test code = 142 mmol/L 136-145 N NA) POTASSIUM (test code 3.6 mmol/L 3.5-5.1 N = K) CHLORIDE (test code 110.0 mmol/L 98-107 H = CL) CARBON DIOXIDE (test 27.0 mmol/L 21-32 N code = CO2) ANION GAP (test code 8.6 10-20 L = GAP) GLUCOSE (test code = 118 mg/dL 74-106 H GLU) BLOOD UREA NITROGEN 14 mg/dL 7-18 N (test code = BUN) GLOMERULAR > 60 mL/min See_Comment Estimated GFR b y FILTRATION RATE using Modifi ed MDRD (test code = GFR) formula.Ch ronic kidney disease is defined as eith er kidney damageor GFR <60 mL/min/1.73 m2 for >3 months. [Automated mess age] The system [email or web address] generated this result transmitted ref erence range: >=60. Th e reference range was not used to int erpret this result as normal/abnormal . CREATININE (test 1.00 mg/dL 0.7-1.3 N code = CREAT) BUN/CREATININE RATIO 14.7 10-20 N (test code = BUN/CREA) CALCIUM (test code = 8.5 mg/dL 8.5-10.1 N CA) [id number] 06:42:00 Test Item Value Reference Range Interpretation Comments PHOSPHORUS (test code = PHOS) 2.9 mg/dL 2.5-4.9 N [id number] 06:42:00 Test Item Value Reference Range Interpretation Comments MAGNESIUM (test code = MAG) 1.9 mg/dL 1.8-2.4 N POC CALCIUM [id number] 06:40:00 Test Item Value Reference Range Interpretation Comments POC CALCIUM IONIZED (test code = 1.20 mmol/L 1.12-1.32 N CAIP) THROMBOPLASTIN TIME [id number] 06:17:00 Test Item Value Reference Range Interpretation Comments THROMBOPLASTIN TIME PARTIAL 41.5 seconds 23.0-37.0 H (test code = PTT) IS PATIENT ON ANTICOAGULANTS? YLIST ANTICOAGULANTS HEPARINCBC W/AUTO DIFF 2020-12-12 06:02:00 Test Item Value Reference Range Interpretation Comments WHITE BLOOD CELL (test code = 10.4 K/mm3 4.5-12.5 N WBC) RED BLOOD CELL (test code = 3.83 mill/mm3 4.0-5.8 L RBC) HEMOGLOBIN (test code = HGB) 12.0 gram/dL 13.0-17.5 L HEMATOCRIT (test code = HCT) 37.3 % 42.0-52.0 L MEAN CELL VOLUME (test code = 97.4 fL 80-98 N MCV) MEAN CELL HGB (test code = MCH) 31.3 picogram 27.0-33.0 N MEAN CELL HGB CONCETRATION 32.2 gram/dL 33.0-36.0 L (test code = MCHC) RED CELL DISTRIBUTION WIDTH 13.2 % 11.6-16.2 N (test code = RDW) RED CELL DISTRIBUTION WIDTH SD 48.0 fL 37.0-51.0 N (test code = RDW-SD) PLATELET COUNT (test code = 249 K/mm3 150-450 N PLT) MEAN PLATELET VOLUME (test code 10.1 fL 6.7-11.0 N = MPV) NEUTROPHIL % (test code = NT%) 76.1 % 39.0-69.0 H IMMATURE GRANULOCYTE % (test 0.4 % 0.0-5.0 N code = IG%) LYMPHOCYTE % (test code = LY%) 14.9 % 25.0-55.0 L MONOCYTE % (test code = MO%) 8.1 % 0.0-10.0 N EOSINOPHIL % (test code = EO%) 0.1 % 0.0-5.0 N BASOPHIL % (test code = BA%) 0.4 % 0.0-1.0 N NUCLEATED RBC % (test code = 0.0 % 0-0 N NRBC%) NEUTROPHIL # (test code = NT#) 7.94 K/mm3 1.8-7.7 H IMMATURE GRANULOCYTE # (test 0.04 x10 3/uL 0-0.03 H code = IG#) LYMPHOCYTE # (test code = LY#) 1.56 K/mm3 1.0-5.0 N MONOCYTE # (test code = MO#) 0.85 K/mm3 0-0.8 H EOSINOPHIL # (test code = EO#) 0.01 K/mm3 0.0-0.5 N BASOPHIL # (test code = BA#) 0.04 K/mm3 0.0-0.2 N NUCLEATED RBC # (test code = 0.00 K/mm3 0.0-0.1 N NRBC#) MANUAL DIFF REQUIRED (test code NO = MDIFF) ARTERIAL BLOOD [id number] 03:53:00 Test Item Value Reference Range Interpretation Comments ARTERIAL BLOOD GAS PH 7.37 7.35-7.45 N (test code = PHA) ARTERIAL BLOOD GAS PCO2 41.9 mm Hg 35-45 N (test code = PCO2A) ARTERIAL BLOOD GAS PO2 92.6 mmHg 80-100 N (test code = PO2A) BICARBONATE TOTAL HCO3 23.7 mmol/L 23.0-27.0 N (test code = HCO3) BASE EXCESS (test code = -1.6 mmol/L -3.0-5.0 N HOWARD) ABG O2 SATURATION (test 97.1 % 90.0-98.0 N code = SATA) ABG TYPE (test code = Arterial TYPEA) FIO2 (test code = FIO2A) 45.0 ABG VENT MODE (test code Assist Control = MODEA) ABG VENT RESP RATE (test 20.0 per min code = RRA) ABG TIDAL VOLUME (test 500.0 mL code = TVA) ABG PEEP (test code = 6.0 cmH2O PEEPA) ABG SITE (test code = Lt RADIAL SITEA) ARTERY MODIFIED ALLENS (test Yes CHECK PERFORMED code = MODALL) SODIUM (test code = 134.8 mEq/L 135-148 L NA/ABG) POTASSIUM (test code = 3.4 mEq/L 3.5-4.5 L K/ABG) CHLORIDE (test code = 107 mEq/L 98-106 H CL/ABG) GLUCOSE (test code = 141 mg/dL 74-99 H GLU/ABG) HEMATOCRIT (test code = 38 % 42-52 L HCT/ABG) IONIZED CALCIUM (test 1.17 mmol/L 1.1-1.37 N code = CAIABG) TOTAL HGB (test code = 12.9 gram/dL 13.0-17.5 L THB) HGB O2 SAT (test code = 96.3 % 94.00-98.00 N HBOSAT) CARBOXYHEMOGLOBIN (test 0.3 %totalHg 0.5-1.5 LL Resu lts called code = HOHGBT) to and read back by casey :53 - 12/12/2020; by marce hunter, arminda METHEMOGLOBIN (test code 0.5 % 0.0-1.50 N = METHGB) O2 CONTENT (test code = 17.6 % vol 18.0-22.0 L O2CT) [id number]/[id number] 03:53:00 Test Item Value Reference Range Interpretation Comments PaO2/FiO2 (test code = [id number]) mm/Hg ARTERIAL BLOOD [id number] 03:53:00 Test Item Value Reference Range Interpretation Comments ARTERIAL BLOOD GAS PH 7.37 7.35-7.45 N (test code = PHA) ARTERIAL BLOOD GAS PCO2 41.9 mm Hg 35-45 N (test code = PCO2A) ARTERIAL BLOOD GAS PO2 92.6 mmHg 80-100 N (test code = PO2A) BICARBONATE TOTAL HCO3 23.7 mmol/L 23.0-27.0 N (test code = HCO3) BASE EXCESS (test code = -1.6 mmol/L -3.0-5.0 N HOWARD) ABG O2 SATURATION (test 97.1 % 90.0-98.0 N code = SATA) ABG TYPE (test code = Arterial TYPEA) FIO2 (test code = FIO2A) 45.0 ABG VENT MODE (test code Assist Control = MODEA) ABG VENT RESP RATE (test 20.0 per min code = RRA) ABG TIDAL VOLUME (test 500.0 mL code = TVA) ABG PEEP (test code = 6.0 cmH2O PEEPA) ABG SITE (test code = Lt RADIAL SITEA) ARTERY MODIFIED ALLENS (test Yes CHECK PERFORMED code = MODALL) SODIUM (test code = 134.8 mEq/L 135-148 L NA/ABG) POTASSIUM (test code = 3.4 mEq/L 3.5-4.5 L K/ABG) CHLORIDE (test code = 107 mEq/L 98-106 H CL/ABG) GLUCOSE (test code = 141 mg/dL 74-99 H GLU/ABG) HEMATOCRIT (test code = 38 % 42-52 L HCT/ABG) IONIZED CALCIUM (test 1.17 mmol/L 1.1-1.37 N code = CAIABG) TOTAL HGB (test code = 12.9 gram/dL 13.0-17.5 L THB) HGB O2 SAT (test code = 96.3 % 94.00-98.00 N HBOSAT) CARBOXYHEMOGLOBIN (test 0.3 %totalHg 0.5-1.5 LL Resu lts called code = HOHGBT) to and read back by casey 03:53 - 12/12/2020; by marce hunter rrt METHEMOGLOBIN (test code 0.5 % 0.0-1.50 N = METHGB) O2 CONTENT (test code = 17.6 % vol 18.0-22.0 L O2CT) PaO2/[id number] 03:53:00 Test Item Value Reference Range Interpretation Comments PaO2/FiO2 (test code = [id number]) 205.70 mm/Hg THROMBOPLASTIN TIME [id number] 23:56:00 Test Item Value Reference Range Interpretation Comments THROMBOPLASTIN TIME PARTIAL 63.1 seconds 23.0-37.0 H (test code = PTT) IS PATIENT ON ANTICOAGULANTS? YLIST ANTICOAGULANTS HEPARINTHROMBOPLASTIN TIME [id number] 17:30:00 Test Item Value Reference Range Interpretation Comments THROMBOPLASTIN TIME PARTIAL 38.1 seconds 23.0-37.0 H (test code = PTT) IS PATIENT ON ANTICOAGULANTS? YLIST ANTICOAGULANTS HEPARINARTERIAL BLOOD GAS 2020-12-11 15:26:00 Test Item Value Reference Range Interpretation Comments ARTERIAL BLOOD GAS PH 7.36 7.35-7.45 N (test code = PHA) ARTERIAL BLOOD GAS PCO2 41.5 mm Hg 35-45 N (test code = PCO2A) ARTERIAL BLOOD GAS PO2 189.6 mmHg 80-100 H (test code = PO2A) BICARBONATE TOTAL HCO3 22.8 mmol/L 23.0-27.0 L (test code = HCO3) BASE EXCESS (test code = -2.6 mmol/L -3.0-5.0 N HOWARD) ABG O2 SATURATION (test 98.8 % 90.0-98.0 H code = SATA) ABG TYPE (test code = Arterial TYPEA) FIO2 (test code = FIO2A) 90.0 ABG VENT MODE (test code Assist Control = MODEA) ABG SITE (test code = Rt RADIAL SITEA) ARTERY MODIFIED ALLENS (test Yes CHECK PERFORMED code = MODALL) SODIUM (test code = 138.0 mEq/L 135-148 N NA/ABG) POTASSIUM (test code = 3.8 mEq/L 3.5-4.5 N K/ABG) CHLORIDE (test code = 107 mEq/L 98-106 H CL/ABG) GLUCOSE (test code = 92 mg/dL 74-99 N GLU/ABG) HEMATOCRIT (test code = 41 % 42-52 L HCT/ABG) IONIZED CALCIUM (test 1.19 mmol/L 1.1-1.37 N code = CAIABG) TOTAL HGB (test code = 13.9 gram/dL 13.0-17.5 N THB) HGB O2 SAT (test code = 98.0 % 94.00-98.00 N HBOSAT) CARBOXYHEMOGLOBIN (test 0.3 %totalHg 0.5-1.5 LL Resu lts called code = HOHGBT) to and read back by carina 15: - 12/11/2020; by kaci METHEMOGLOBIN (test code 0.5 % 0.0-1.50 N = METHGB) O2 CONTENT (test code = 19.5 % vol 18.0-22.0 N O2CT) PaO2/[id number] 15:26:00 Test Item Value Reference Range Interpretation Comments PaO2/FiO2 (test code = [id number]) mm/Hg ARTERIAL BLOOD [id number] 15:26:00 Test Item Value Reference Range Interpretation Comments ARTERIAL BLOOD GAS PH 7.36 7.35-7.45 N (test code = PHA) ARTERIAL BLOOD GAS PCO2 41.5 mm Hg 35-45 N (test code = PCO2A) ARTERIAL BLOOD GAS PO2 189.6 mmHg 80-100 H (test code = PO2A) BICARBONATE TOTAL HCO3 22.8 mmol/L 23.0-27.0 L (test code = HCO3) BASE EXCESS (test code = -2.6 mmol/L -3.0-5.0 N HOWARD) ABG O2 SATURATION (test 98.8 % 90.0-98.0 H code = SATA) ABG TYPE (test code = Arterial TYPEA) FIO2 (test code = FIO2A) 90.0 ABG VENT MODE (test code Assist Control = MODEA) ABG SITE (test code = Rt RADIAL SITEA) ARTERY MODIFIED ALLENS (test Yes CHECK PERFORMED code = MODALL) SODIUM (test code = 138.0 mEq/L 135-148 N NA/ABG) POTASSIUM (test code = 3.8 mEq/L 3.5-4.5 N K/ABG) CHLORIDE (test code = 107 mEq/L 98-106 H CL/ABG) GLUCOSE (test code = 92 mg/dL 74-99 N GLU/ABG) HEMATOCRIT (test code = 41 % 42-52 L HCT/ABG) IONIZED CALCIUM (test 1.19 mmol/L 1.1-1.37 N code = CAIABG) TOTAL HGB (test code = 13.9 gram/dL 13.0-17.5 N THB) HGB O2 SAT (test code = 98.0 % 94.00-98.00 N HBOSAT) CARBOXYHEMOGLOBIN (test 0.3 %totalHg 0.5-1.5 LL Resu lts called code = HOHGBT) to and read back by carina 15: - 12/11/2020; by kaci METHEMOGLOBIN (test code 0.5 % 0.0-1.50 N = METHGB) O2 CONTENT (test code = 19.5 % vol 18.0-22.0 N O2CT) PaO2/[id number] 15:26:00 Test Item Value Reference Range Interpretation Comments PaO2/FiO2 (test code = [id number]) 210.60 mm/Hg THROMBOPLASTIN TIME [id number] 10:39:00 Test Item Value Reference Range Interpretation Comments THROMBOPLASTIN TIME PARTIAL 74.4 seconds 23.0-37.0 H (test code = PTT) IS PATIENT ON ANTICOAGULANTS? YLIST ANTICOAGULANTS HEPARINTHROMBOPLASTIN TIME [id number] 08:44:00 Test Item Value Reference Range Interpretation Comments THROMBOPLASTIN TIME 240.1 seconds 23.0-37.0 HH Results called to PARTIAL (test code = [id number] by PTT) V.LAB.JQ 0842Critical results verifie d and read back b y Nurse? Y IS PATIENT ON ANTICOAGULANTS? YLIST ANTICOAGULANTS [id number] 08:15:00 Test Item Value Reference Range Interpretation Comments GLUBED (test code = 90 mg/dL 74-106 N Performe d by certified GLUBED) tc operator at [facility] BASIC METABOLIC [id number] 07:16:00 Test Item Value Reference Range Interpretation Comments SODIUM (test code = 142 mmol/L 136-145 N NA) POTASSIUM (test code 4.3 mmol/L 3.5-5.1 N = K) CHLORIDE (test code 114.0 mmol/L 98-107 H = CL) CARBON DIOXIDE (test 19.0 mmol/L 21-32 L code = CO2) ANION GAP (test code 13.3 10-20 N = GAP) GLUCOSE (test code = 82 mg/dL 74-106 N GLU) BLOOD UREA NITROGEN 16 mg/dL 7-18 N (test code = BUN) GLOMERULAR > 60 mL/min See_Comment Estimated GFR b y FILTRATION RATE using Modifi ed MDRD (test code = GFR) formula. ronic kidney disease is defined as eith er kidney damageor GFR <60 mL/min/1.73 m2 for >3 months. [Automated mess age] The system [email or web address] generated this result transmitted ref erence range: >=60. Th e reference range was not used to int erpret this result as normal/abnormal . CREATININE (test 1.20 mg/dL 0.7-1.3 N code = CREAT) BUN/CREATININE RATIO 13.8 10-20 N (test code = BUN/CREA) CALCIUM (test code = 8.0 mg/dL 8.5-10.1 L CA) [id number] 07:16:00 Test Item Value Reference Range Interpretation Comments PHOSPHORUS (test code = PHOS) 4.5 mg/dL 2.5-4.9 N [id number] 07:16:00 Test Item Value Reference Range Interpretation Comments MAGNESIUM (test code = MAG) 2.2 mg/dL 1.8-2.4 N POC CALCIUM [id number] 07:06:00 Test Item Value Reference Range Interpretation Comments POC CALCIUM IONIZED (test code = 1.00 mmol/L 1.12-1.32 L CAIP) ARTERIAL BLOOD [id number] 06:35:00 Test Item Value Reference Range Interpretation Comments ARTERIAL BLOOD GAS PH 7.30 7.35-7.45 L (test code = PHA) ARTERIAL BLOOD GAS PCO2 50.3 mm Hg 35-45 H (test code = PCO2A) ARTERIAL BLOOD GAS PO2 47.1 mmHg 80-100 LL Resul ts called (test code = PO2A) to and re ad back by mile 12/11/2020; by kristina BICARBONATE TOTAL HCO3 23.9 mmol/L 23.0-27.0 N (test code = HCO3) BASE EXCESS (test code = -3.1 mmol/L -3.0-5.0 LL Res ults called HOWARD) to and read back by mile 12/11/2020; by kristina ABG O2 SATURATION (test 81.2 % 90.0-98.0 L code = SATA) ABG TYPE (test code = Arterial TYPEA) FIO2 (test code = FIO2A) 80.0 ABG VENT MODE (test code Assist Control = MODEA) ABG VENT RESP RATE (test 20.0 per min code = RRA) ABG TIDAL VOLUME (test 500.0 mL code = TVA) ABG PEEP (test code = 5.0 cmH2O PEEPA) ABG SITE (test code = Lt RADIAL SITEA) ARTERY MODIFIED ALLENS (test Yes CHECK PERFORMED code = MODALL) SODIUM (test code = 137.6 mEq/L 135-148 N NA/ABG) POTASSIUM (test code = 4.1 mEq/L 3.5-4.5 N K/ABG) CHLORIDE (test code = 106 mEq/L 98-106 N CL/ABG) GLUCOSE (test code = 85 mg/dL 74-99 N GLU/ABG) HEMATOCRIT (test code = 41 % 42-52 L HCT/ABG) IONIZED CALCIUM (test 1.19 mmol/L 1.1-1.37 N code = CAIABG) TOTAL HGB (test code = 14.0 gram/dL 13.0-17.5 N THB) HGB O2 SAT (test code = 80.8 % 94.00-98.00 L HBOSAT) CARBOXYHEMOGLOBIN (test 0.1 %totalHg 0.5-1.5 LL Resu lts called code = HOHGBT) to and read back by mlie 12/11/2020; by kristina METHEMOGLOBIN (test code 0.4 % 0.0-1.50 N = METHGB) O2 CONTENT (test code = 15.9 % vol 18.0-22.0 L O2CT) PaO2/[id number] 06:35:00 Test Item Value Reference Range Interpretation Comments PaO2/FiO2 (test code = [id number]) mm/Hg ARTERIAL BLOOD [id number] 06:35:00 Test Item Value Reference Range Interpretation Comments ARTERIAL BLOOD GAS PH 7.30 7.35-7.45 L (test code = PHA) ARTERIAL BLOOD GAS PCO2 50.3 mm Hg 35-45 H (test code = PCO2A) ARTERIAL BLOOD GAS PO2 47.1 mmHg 80-100 LL Resul ts called (test code = PO2A) to and re ad back by mile - 12/11/2020; by kristina BICARBONATE TOTAL HCO3 23.9 mmol/L 23.0-27.0 N (test code = HCO3) BASE EXCESS (test code = -3.1 mmol/L -3.0-5.0 LL Res ults called HOWARD) to and read back by mile 12/11/2020; by kristina ABG O2 SATURATION (test 81.2 % 90.0-98.0 L code = SATA) ABG TYPE (test code = Arterial TYPEA) FIO2 (test code = FIO2A) 80.0 ABG VENT MODE (test code Assist Control = MODEA) ABG VENT RESP RATE (test 20.0 per min code = RRA) ABG TIDAL VOLUME (test 500.0 mL code = TVA) ABG PEEP (test code = 5.0 cmH2O PEEPA) ABG SITE (test code = Lt RADIAL SITEA) ARTERY MODIFIED ALLENS (test Yes CHECK PERFORMED code = MODALL) SODIUM (test code = 137.6 mEq/L 135-148 N NA/ABG) POTASSIUM (test code = 4.1 mEq/L 3.5-4.5 N K/ABG) CHLORIDE (test code = 106 mEq/L 98-106 N CL/ABG) GLUCOSE (test code = 85 mg/dL 74-99 N GLU/ABG) HEMATOCRIT (test code = 41 % 42-52 L HCT/ABG) IONIZED CALCIUM (test 1.19 mmol/L 1.1-1.37 N code = CAIABG) TOTAL HGB (test code = 14.0 gram/dL 13.0-17.5 N THB) HGB O2 SAT (test code = 80.8 % 94.00-98.00 L HBOSAT) CARBOXYHEMOGLOBIN (test 0.1 %totalHg 0.5-1.5 LL Resu lts called code = HOHGBT) to and read back by mile 04:05 - 12/11/2020; by kristina METHEMOGLOBIN (test code 0.4 % 0.0-1.50 N = METHGB) O2 CONTENT (test code = 15.9 % vol 18.0-22.0 L O2CT) PaO2/[id number] 06:35:00 Test Item Value Reference Range Interpretation Comments PaO2/FiO2 (test code = [id number]) 58.80 mm/Hg - XR CHEST 1 [id number] 06:28:00 [facility])Name: BERKLEY SAMS : 1985 Sex: M FAX: Rosaura Tidwell Anza: B St: [facility] FAX: Tyesha Brooks NP Name: BERKLEY SAMS KLAUDIA [facility] : 1985 Age/S: 35/M [address] [facility] Unit #: [id number] Loc: [place] [address] Phys: Tyesha Chavez KEY ATTENDANT Acct: [id number] Dis Date: Status: ADM IN PHONE #: [phone] Exam Date: 12/11/2020 05 FAX #: [phone] Reason: Intubated EXAMS: CPT CODE: [id number] XR CHEST 1 V [id number] EXAMINATION: - XR CHEST 1 V LOCATION: H61 INDICATION/CLINICAL HISTORY: Intubated COMPARISON: Chest x-ray chest x-ray 12/10/2020 TECHNIQUE: AP view of the chest. FINDINGS: Endotracheal tube and enteric catheterare stable. Increase dense left basilar opacity which may reflect atelectasis or pneumonia. Right lung is clear. There is no appreciable pneumothorax or pleural effusion. IMPRESSION: Increased dense left basilar opacity with obscuration of the left hemidiaphragm. The findings may reflect atelectasis or pneumonia. at 0628 Reported and signed by: Lindsay Gray M.D. CC: Rosaura Tidwell MD; Tyesha Brooks NP Technologist: ROXANNE MCCORMICK JR RT(R) Trnscrd Date/Time/By: 12/11/2020 (627) : By: [email or web address] Orig Print D/T: S: 12/11/2020 (31) PAGE 1 Signed ReportCBC W/AUTO [id number] 05:56:00 Test Item Value Reference Range Interpretation Comments WHITE BLOOD CELL (test code = 12.3 K/mm3 4.5-12.5 N WBC) RED BLOOD CELL (test code = 4.03 mill/mm3 4.0-5.8 N RBC) HEMOGLOBIN (test code = HGB) 12.8 gram/dL 13.0-17.5 L HEMATOCRIT (test code = HCT) 40.1 % 42.0-52.0 L MEAN CELL VOLUME (test code = 99.5 fL 80-98 H MCV) MEAN CELL HGB (test code = MCH) 31.8 picogram 27.0-33.0 N MEAN CELL HGB CONCETRATION 31.9 gram/dL 33.0-36.0 L (test code = MCHC) RED CELL DISTRIBUTION WIDTH 12.9 % 11.6-16.2 N (test code = RDW) RED CELL DISTRIBUTION WIDTH SD 47.3 fL 37.0-51.0 N (test code = RDW-SD) PLATELET COUNT (test code = 216 K/mm3 150-450 N PLT) MEAN PLATELET VOLUME (test code 10.0 fL 6.7-11.0 N = MPV) NEUTROPHIL % (test code = NT%) 76.5 % 39.0-69.0 H IMMATURE GRANULOCYTE % (test 0.4 % 0.0-5.0 N code = IG%) LYMPHOCYTE % (test code = LY%) 14.6 % 25.0-55.0 L MONOCYTE % (test code = MO%) 7.7 % 0.0-10.0 N EOSINOPHIL % (test code = EO%) 0.1 % 0.0-5.0 N BASOPHIL % (test code = BA%) 0.7 % 0.0-1.0 N NUCLEATED RBC % (test code = 0.0 % 0-0 N NRBC%) NEUTROPHIL # (test code = NT#) 9.39 K/mm3 1.8-7.7 H IMMATURE GRANULOCYTE # (test 0.05 x10 3/uL 0-0.03 H code = IG#) LYMPHOCYTE # (test code = LY#) 1.79 K/mm3 1.0-5.0 N MONOCYTE # (test code = MO#) 0.94 K/mm3 0-0.8 H EOSINOPHIL # (test code = EO#) 0.01 K/mm3 0.0-0.5 N BASOPHIL # (test code = BA#) 0.08 K/mm3 0.0-0.2 N NUCLEATED RBC # (test code = 0.00 K/mm3 0.0-0.1 N NRBC#) MANUAL DIFF REQUIRED (test code NO = MDIFF) THROMBOPLASTIN TIME [id number] 02:55:00 Test Item Value Reference Range Interpretation Comments THROMBOPLASTIN TIME PARTIAL 33.5 seconds 23.0-37.0 N (test code = PTT) IS PATIENT ON ANTICOAGULANTS? YLIST ANTICOAGULANTS HEPARINARTERIAL BLOOD GAS 2020-12-10 18:55:00 Test Item Value Reference Range Interpretation Comments ARTERIAL BLOOD GAS PH 7.34 7.35-7.45 L (test code = PHA) ARTERIAL BLOOD GAS PCO2 46.7 mm Hg 35-45 H (test code = PCO2A) ARTERIAL BLOOD GAS PO2 48.6 mmHg 80-100 LL Resul ts called (test code = PO2A) to and re ad back by VIOlifet 18:55 - 12/10/2020; by OMA BICARBONATE TOTAL HCO3 24.5 mmol/L 23.0-27.0 N (test code = HCO3) BASE EXCESS (test code = -1.7 mmol/L -3.0-5.0 N HOWARD) ABG O2 SATURATION (test 85.4 % 90.0-98.0 L code = SATA) ABG TYPE (test code = Arterial TYPEA) FIO2 (test code = FIO2A) 50.0 ABG VENT MODE (test code CPAP = MODEA) ABG PRESSURE SUPPORT 7 cmH2O (test code = PSABG) ABG SITE (test code = Rt RADIAL SITEA) ARTERY MODIFIED ALLENS (test Yes CHECK PERFORMED code = MODALL) HEMATOCRIT (test code = 44 % 42-52 N HCT/ABG) TOTAL HGB (test code = 15.1 gram/dL 13.0-17.5 N THB) HGB O2 SAT (test code = 84.6 % 94.00-98.00 L HBOSAT) CARBOXYHEMOGLOBIN (test 0.5 %totalHg 0.5-1.5 N code = HOHGBT) METHEMOGLOBIN (test code 0.4 % 0.0-1.50 N = METHGB) O2 CONTENT (test code = 17.9 % vol 18.0-22.0 L O2CT) PaO2/[id number] 18:55:00 Test Item Value Reference Range Interpretation Comments PaO2/FiO2 (test code = [id number]) mm/Hg ARTERIAL BLOOD [id number] 18:55:00 Test Item Value Reference Range Interpretation Comments ARTERIAL BLOOD GAS PH 7.34 7.35-7.45 L (test code = PHA) ARTERIAL BLOOD GAS PCO2 46.7 mm Hg 35-45 H (test code = PCO2A) ARTERIAL BLOOD GAS PO2 48.6 mmHg 80-100 LL Resul ts called (test code = PO2A) to and re ad back by [employer] 18:55 - 12/10/2020; by OMA BICARBONATE TOTAL HCO3 24.5 mmol/L 23.0-27.0 N (test code = HCO3) BASE EXCESS (test code = -1.7 mmol/L -3.0-5.0 N HOWARD) ABG O2 SATURATION (test 85.4 % 90.0-98.0 L code = SATA) ABG TYPE (test code = Arterial TYPEA) FIO2 (test code = FIO2A) 50.0 ABG VENT MODE (test code CPAP = MODEA) ABG PRESSURE SUPPORT 7 cmH2O (test code = PSABG) ABG SITE (test code = Rt RADIAL SITEA) ARTERY MODIFIED ALLENS (test Yes CHECK PERFORMED code = MODALL) HEMATOCRIT (test code = 44 % 42-52 N HCT/ABG) TOTAL HGB (test code = 15.1 gram/dL 13.0-17.5 N THB) HGB O2 SAT (test code = 84.6 % 94.00-98.00 L HBOSAT) CARBOXYHEMOGLOBIN (test 0.5 %totalHg 0.5-1.5 N code = HOHGBT) METHEMOGLOBIN (test code 0.4 % 0.0-1.50 N = METHGB) O2 CONTENT (test code = 17.9 % vol 18.0-22.0 L O2CT) PaO2/[id number] 18:55:00 Test Item Value Reference Range Interpretation Comments PaO2/FiO2 (test code = [id number]) 97.20 mm/Hg THROMBOPLASTIN TIME [id number] 11:18:00 Test Item Value Reference Range Interpretation Comments THROMBOPLASTIN TIME 189.2 seconds 23.0-37.0 HH Results called to PARTIAL (test code = [id number] by PTT) BeverlyBK11 12/10/20 1118Critical results verifie d and read back b y Nurse? Y IS PATIENT ON ANTICOAGULANTS? YLIST ANTICOAGULANTS HEPARIN- XR CHEST 1 V 2020-12-10 07:33:00 [facility])Name: BERKLEY SAMS: 1985 Sex: M FAX: Rosaura Tidwell Anza: St: ADM FAX: Tyesha Brooks KEY ATTENDANT Name: BERKLEY SAMS [facility] : 1985 Age/S: 35/M [address] [facility] Unit #: [id number] Loc: [address] [address] Phys: Tyesha Willis NP Acct: [id number] Dis Date: Status: ADM IN PHONE #: [phone] Exam Date: 12/10/2020 0635 FAX #: [phone] Reason: Intubated EXAMS: CPT CODE: [id number] XR CHEST 1 V 48468 REASON FOR EXAM: Intubated Exam Order Date: 12/10/2020 2:00 AM Ordering M.D.: Tyesha Brooks NP PROCEDURE: -XR CHEST 1 V COMPARISON: Chest x-ray the previous morning FINDINGS/ IMPRESSION: Lines and tubes areunchanged from the previous exam. The previously seen opacity in the right lung base has improved however there is slightly increased opacity in the left midlung. These opacities may represent any combination of pneumonia and atelectasis. Heart appears prominent but stable in size. Skeletal structuresare within normal limits. Location: [facility] at 0733 Reported and signed by: Rene Boggs MD CC: Rosaura Tidwell MD; Tyesha Brooks NP Technologist: CORTEZ BURNS, RT(R); Julienne Duvall(R) Trnscrd Date/Time/By: 12/10/2020 (0733) : By: [email or web address] Orig Print D/T: S: 12/10/2020 (0782) PAGE 1 Signed ReportGLUBED 2020-12-10 07:20:00 Test Item Value Reference Range Interpretation Comments GLUBED (test code = 192 mg/dL 74-106 H Performe d by certified GLUBED) tc operator at [facility] POC CALCIUM [id number] 05:49:00 Test Item Value Reference Range Interpretation Comments POC CALCIUM IONIZED (test code = 1.24 mmol/L 1.12-1.32 N CAIP) ARTERIAL BLOOD [id number] 03:48:00 Test Item Value Reference Range Interpretation Comments ARTERIAL BLOOD GAS PH 7.38 7.35-7.45 N (test code = PHA) ARTERIAL BLOOD GAS PCO2 39.8 mm Hg 35-45 N (test code = PCO2A) ARTERIAL BLOOD GAS PO2 81.9 mmHg 80-100 N (test code = PO2A) BICARBONATE TOTAL HCO3 23.1 mmol/L 23.0-27.0 N (test code = HCO3) BASE EXCESS (test code = -1.8 mmol/L -3.0-5.0 N HOWARD) ABG O2 SATURATION (test 96.6 % 90.0-98.0 N code = SATA) ABG TYPE (test code = Arterial TYPEA) FIO2 (test code = FIO2A) 50.0 ABG VENT MODE (test code PRVC = MODEA) ABG VENT RESP RATE (test 20.0 per min code = RRA) ABG TIDAL VOLUME (test 500.0 mL code = TVA) ABG PEEP (test code = 5.0 cmH2O PEEPA) ABG SITE (test code = Lt RADIAL SITEA) ARTERY MODIFIED ALLENS (test Yes CHECK PERFORMED code = MODALL) HEMATOCRIT (test code = 40 % 42-52 L HCT/ABG) TOTAL HGB (test code = 13.6 gram/dL 13.0-17.5 N THB) HGB O2 SAT (test code = 96.0 % 94.00-98.00 N HBOSAT) CARBOXYHEMOGLOBIN (test 0.4 %totalHg 0.5-1.5 LL Resu lts called code = HOHGBT) to and read back by Dedra 12/10/2020; by JOSE METHEMOGLOBIN (test code 0.2 % 0.0-1.50 N = METHGB) O2 CONTENT (test code = 18.4 % vol 18.0-22.0 N O2CT) PaO2/[id number] 03:48:00 Test Item Value Reference Range Interpretation Comments PaO2/FiO2 (test code = [id number]) 163.80 mm/Hg ARTERIAL BLOOD [id number] 03:47:00 Test Item Value Reference Range Interpretation Comments ARTERIAL BLOOD GAS PH 7.38 7.35-7.45 N (test code = PHA) ARTERIAL BLOOD GAS PCO2 39.8 mm Hg 35-45 N (test code = PCO2A) ARTERIAL BLOOD GAS PO2 81.9 mmHg 80-100 N (test code = PO2A) BICARBONATE TOTAL HCO3 23.1 mmol/L 23.0-27.0 N (test code = HCO3) BASE EXCESS (test code = -1.8 mmol/L -3.0-5.0 N HOWARD) ABG O2 SATURATION (test 96.6 % 90.0-98.0 N code = SATA) ABG TYPE (test code = Arterial TYPEA) FIO2 (test code = FIO2A) 50.0 ABG VENT MODE (test code PRVC = MODEA) ABG VENT RESP RATE (test 20.0 per min code = RRA) ABG TIDAL VOLUME (test 500.0 mL code = TVA) ABG PEEP (test code = 5.0 cmH2O PEEPA) ABG SITE (test code = Lt RADIAL SITEA) ARTERY MODIFIED ALLENS (test Yes CHECK PERFORMED code = MODALL) HEMATOCRIT (test code = 40 % 42-52 L HCT/ABG) TOTAL HGB (test code = 13.6 gram/dL 13.0-17.5 N THB) HGB O2 SAT (test code = 96.0 % 94.00-98.00 N HBOSAT) CARBOXYHEMOGLOBIN (test 0.4 %totalHg 0.5-1.5 LL Resu lts called code = HOHGBT) to and read back by Dedra 12/10/2020; by JOSE METHEMOGLOBIN (test code 0.2 % 0.0-1.50 N = METHGB) O2 CONTENT (test code = 18.4 % vol 18.0-22.0 N O2CT) PaO2/[id number] 03:47:00 Test Item Value Reference Range Interpretation Comments PaO2/FiO2 (test code = [id number]) mm/Hg URINALYSIS [id number] 03:36:00 Test Item Value Reference Range Interpretation Comments UA COLOR (test code = Light-Yellow YELLOW COLU) UA APPEARANCE (test code CLEAR CLEAR = APPU) UA GLUCOSE DIPSTICK (test NEGATIVE mg/dL NEGATIVE code = DGLUU) UA BILIRUBIN DIPSTICK NEGATIVE mg/dL NEGATIVE (test code = BILU) UA KETONE DIPSTICK (test NEGATIVE mg/dL NEGATIVE code = KETU) UA SPECIFIC GRAVITY (test >1.050 1.001-1.035 code = SGU) UA BLOOD DIPSTICK (test Negative mg/dL NEGATIVE code = JESSI) UA PH DIPSTICK (test code 5.5 5.0-8.0 = CORRINE) UA PROTEIN DIPSTICK (test 10 (Trace) mg/dL NEGATIVE A code = PROU) UA UROBILINIOGEN DIPSTICK Normal mg/dL NEGATIVE (test code = URO) UA NITRITE DIPSTICK (test NEGATIVE NEGATIVE code = PEGGY) UA LEUKOCYTE ESTERASE W NEGATIVE Mindy/uL NEGATIVE REFLEX (test code = LEUUR) UA WBC (test code = WBCU) 0-5 per HPF 0-5 UA RBC (test code = RBCU) 21-50 #/HPF 0-5 UA EPITHELIAL CELLS (test Rare (0-1/hpf) per FEW code = EPIU) HPF UA BACTERIA (test code = FEW #/HPF NONE A BACU) UA MUCUS (test code = FEW #/LPF FEW MUCU) SPECIMEN COMMENTS: STERILEUrine Source? CatheterBASIC METABOLIC [id number] 03:35:00 Test Item Value Reference Range Interpretation Comments SODIUM (test code = 140 mmol/L 136-145 N NA) POTASSIUM (test code 4.0 mmol/L 3.5-5.1 N = K) CHLORIDE (test code 111.0 mmol/L 98-107 H = CL) CARBON DIOXIDE (test 23.0 mmol/L 21-32 N code = CO2) ANION GAP (test code 10.0 10-20 N = GAP) GLUCOSE (test code = 86 mg/dL 74-106 N GLU) BLOOD UREA NITROGEN 10 mg/dL 7-18 N (test code = BUN) GLOMERULAR > 60 mL/min See_Comment Estimated GFR b y FILTRATION RATE using Modifi ed MDRD (test code = GFR) formula.[facility] kidney disease is defined as eith er kidney damageor GFR <60 mL/min/1.73 m2 for >3 months. [Automated mess age] The system [email or web address] generated this result transmitted ref erence range: >=60. Th e reference range was not used to int erpret this result as normal/abnormal . CREATININE (test 0.80 mg/dL 0.7-1.3 N code = CREAT) BUN/CREATININE RATIO 11.9 10-20 N (test code = BUN/CREA) CALCIUM (test code = 8.7 mg/dL 8.5-10.1 N CA) [id number] 03:35:00 Test Item Value Reference Range Interpretation Comments PHOSPHORUS (test code = PHOS) 2.5 mg/dL 2.5-4.9 N [id number] 03:35:00 Test Item Value Reference Range Interpretation Comments MAGNESIUM (test code = MAG) 1.9 mg/dL 1.8-2.4 N CBC W/AUTO [id number] 03:17:00 Test Item Value Reference Range Interpretation Comments WHITE BLOOD CELL (test 14.2 K/mm3 4.5-12.5 H code = WBC) RED BLOOD CELL (test 4.14 mill/mm3 4.0-5.8 N code = RBC) HEMOGLOBIN (test code 13.2 gram/dL 13.0-17.5 N = HGB) HEMATOCRIT (test code 40.4 % 42.0-52.0 L = HCT) MEAN CELL VOLUME (test 97.6 fL 80-98 N code = MCV) MEAN CELL HGB (test 31.9 picogram 27.0-33.0 N code = MCH) MEAN CELL HGB 32.7 gram/dL 33.0-36.0 L CONCETRATION (test code = MCHC) RED CELL DISTRIBUTION 13.0 % 11.6-16.2 N WIDTH (test code = RDW) RED CELL DISTRIBUTION 46.5 fL 37.0-51.0 N WIDTH SD (test code = RDW-SD) PLATELET COUNT (test 232 K/mm3 150-450 RESULT VERIFIED BY code = PLT) REPEAT ANALYSIS MEAN PLATELET VOLUME 10.1 fL 6.7-11.0 N (test code = MPV) NEUTROPHIL % (test 76.1 % 39.0-69.0 H code = NT%) IMMATURE GRANULOCYTE % 0.4 % 0.0-5.0 N (test code = IG%) LYMPHOCYTE % (test 17.2 % 25.0-55.0 L code = LY%) MONOCYTE % (test code 5.6 % 0.0-10.0 N = MO%) EOSINOPHIL % (test 0.1 % 0.0-5.0 N code = EO%) BASOPHIL % (test code 0.6 % 0.0-1.0 N = BA%) NUCLEATED RBC % (test 0.0 % 0-0 N code = NRBC%) NEUTROPHIL # (test 10.82 K/mm3 1.8-7.7 H code = NT#) IMMATURE GRANULOCYTE # 0.05 x10 3/uL 0-0.03 H (test code = IG#) LYMPHOCYTE # (test 2.44 K/mm3 1.0-5.0 N code = LY#) MONOCYTE # (test code 0.80 K/mm3 0-0.8 N = MO#) EOSINOPHIL # (test 0.01 K/mm3 0.0-0.5 N code = EO#) BASOPHIL # (test code 0.08 K/mm3 0.0-0.2 N = BA#) NUCLEATED RBC # (test 0.00 K/mm3 0.0-0.1 N code = NRBC#) MANUAL DIFF REQUIRED NO (test code = MDIFF) THROMBOPLASTIN TIME [id number] 03:17:00 Test Item Value Reference Range Interpretation Comments THROMBOPLASTIN TIME PARTIAL 34.1 seconds 23.0-37.0 N (test code = PTT) IS PATIENT ON ANTICOAGULANTS? YLIST ANTICOAGULANTS LOVENOX- CTA [id number] 23:28:00[facility]Name: BERKLEY SAMS : 1985 Sex: M Name: BERKLEY SAMS [facility] : 1985 Age/S: 35 / M [address] Unit #: [id number] Loc: [place] [address] Phys: Haydee Garvin MD Acct: [id number] Dis Date: Status: ADM IN PHONE #: [phone] Exam Date: 12/09/20202309 FAX #: [phone] Reason: sob/hypoxia EXAMS: CPT CODE: [id number] CTA CHEST 71306 CT chest with contrast (PE protocol) Location code: B2 HISTORY: Shortness of breath. Hypoxia, overdose COMMENT: Multidetector slices through the chest were obtained during contrast administration for evaluation of the pulmonary arteries for pulmonary embolus. Coronal and axial reconstructions were performed and evaluated. MIPS and 3-D reformatted images were rendered. Dose lowering technique with automatic exposure control utilized. ET tube and NG tube are in good position. There is good opacification of the pulmonary arteries with no evidence of filling defect to suggest central or segmental pulmonary embolus. Small filling defect in the right lower lobe subsegmental branch distally noted. The aorta is normal in diameter with no aneurysm or dissection. Tracheobronchial tree is patent without bronchiectasis or endobronchial lesions. There is nonenhancingbibasilar pneumonia with scattered enhancing areas as well. No pneumothorax. The heart and pulmonaryvasculature is normal. IMPRESSION: 1. No central or segmental pulmonary embolus. Small subsegmental pulmonary embolus in the right lower lobe branch distally. 2. Bibasilar pneumonia and atelectasis. 3. ET tube and NG tube are in good position. at 2328 Reported and signed by: Josh Quinones M.D. PAGE 1 Signed Report (CONTINUED) Name: BERKLEY SAMS [facility] : 1985 Age/S: 35 / M [address] Unit #: [id number] Loc: [place] [address] Phys: Haydee Garvin MD Acct: [id number] Dis Date: Status: ADM IN PHONE #: [phone] Exam Date: 12/09/2020 2310 FAX #: [phone] Reason: sob/hypoxia EXAMS: CPT CODE: [id number] CTA CHEST 43229 (Continued) CC: Haydee Garvin MD; Rosaura Tidwell MD Technologist:ELIZABETH GLASER, RT; Jameel Laguerre CTDI: DLP: Trnscb Date/Time: 12/09/2020 (2327) [email or web address] Orig Print D/T: S: 12/09/2020 (6433) PAGE 2 Signed ReportARTERIAL BLOOD [id number] 17:06:00 Test Item Value Reference Range Interpretation Comments ARTERIAL BLOOD GAS PH 7.21 7.35-7.45 L (test code = PHA) ARTERIAL BLOOD GAS PCO2 56.4 mm Hg 35-45 H (test code = PCO2A) ARTERIAL BLOOD GAS PO2 75.6 mmHg 80-100 L (test code = PO2A) BICARBONATE TOTAL HCO3 22.2 mmol/L 23.0-27.0 L (test code = HCO3) BASE EXCESS (test code = -6.5 mmol/L -3.0-5.0 LL Res ults called HOWARD) to and read back by Elisabeth 17:06 - 12/09/2020; by Cynthia Lewis HAZMAT TECHNICIAN ABG O2 SATURATION (test 93.5 % 90.0-98.0 N code = SATA) ABG TYPE (test code = Arterial TYPEA) FIO2 (test code = FIO2A) 100.0 ABG VENT MODE (test code VC+ = MODEA) ABG VENT RESP RATE (test 20.0 per min code = RRA) ABG TIDAL VOLUME (test 500.0 mL code = TVA) ABG PEEP (test code = 8.0 cmH2O PEEPA) ABG SITE (test code = Lt RADIAL SITEA) ARTERY MODIFIED ALLENS (test Unable CHECK PERFORMED code = MODALL) HEMATOCRIT (test code = 45 % 42-52 N HCT/ABG) TOTAL HGB (test code = 15.4 gram/dL 13.0-17.5 N THB) HGB O2 SAT (test code = 92.8 % 94.00-98.00 L HBOSAT) CARBOXYHEMOGLOBIN (test 0.6 %totalHg 0.5-1.5 N code = HOHGBT) METHEMOGLOBIN (test code 0.2 % 0.0-1.50 N = METHGB) O2 CONTENT (test code = 20.1 % vol 18.0-22.0 N O2CT) PaO2/[id number] 17:06:00 Test Item Value Reference Range Interpretation Comments PaO2/FiO2 (test code = [id number]) mm/Hg ARTERIAL BLOOD [id number] 17:06:00 Test Item Value Reference Range Interpretation Comments ARTERIAL BLOOD GAS PH 7.21 7.35-7.45 L (test code = PHA) ARTERIAL BLOOD GAS PCO2 56.4 mm Hg 35-45 H (test code = PCO2A) ARTERIAL BLOOD GAS PO2 75.6 mmHg 80-100 L (test code = PO2A) BICARBONATE TOTAL HCO3 22.2 mmol/L 23.0-27.0 L (test code = HCO3) BASE EXCESS (test code = -6.5 mmol/L -3.0-5.0 LL Res ults called HOWARD) to and read back by Elisabeth 17:06 - 12/09/2020; by Cynthia Lewis HAZMAT TECHNICIAN ABG O2 SATURATION (test 93.5 % 90.0-98.0 N code = SATA) ABG TYPE (test code = Arterial TYPEA) FIO2 (test code = FIO2A) 100.0 ABG VENT MODE (test code VC+ = MODEA) ABG VENT RESP RATE (test 20.0 per min code = RRA) ABG TIDAL VOLUME (test 500.0 mL code = TVA) ABG PEEP (test code = 8.0 cmH2O PEEPA) ABG SITE (test code = Lt RADIAL SITEA) ARTERY MODIFIED ALLENS (test Unable CHECK PERFORMED code = MODALL) HEMATOCRIT (test code = 45 % 42-52 N HCT/ABG) TOTAL HGB (test code = 15.4 gram/dL 13.0-17.5 N THB) HGB O2 SAT (test code = 92.8 % 94.00-98.00 L HBOSAT) CARBOXYHEMOGLOBIN (test 0.6 %totalHg 0.5-1.5 N code = HOHGBT) METHEMOGLOBIN (test code 0.2 % 0.0-1.50 N = METHGB) O2 CONTENT (test code = 20.1 % vol 18.0-22.0 N O2CT) PaO2/[id number] 17:06:00 Test Item Value Reference Range Interpretation Comments PaO2/FiO2 (test code = [id number]) 75.60 mm/Hg - CT HEAD/BRAIN W/O [id number] 13:01:00 [facility])Name: BERKLEY SAMS : 1985 Sex: M Name: BERKLEY SAMS [facility] : 1985 Age/S: 35 / M [address] [facility] Unit #: [id number] Loc: [place] [address] Phys: Rain Candelario MD Acct: [id number] Dis Date: Status: ADM IN PHONE #: [phone] Exam Date: 12/09/2020 125 FAX #: [phone] Reason: ALTERED MENTAL STATUS EXAMS: CPT CODE: [id number] CT HEAD/BRAIN W/O CONT 31466 HISTORY: ALTERED MENTAL STATUS TECH NIQUE: Noncontrast 2.[address] of the head. Examination acquired within 24 hours of arrival. Automated exposure control for dose reduction. COMPARISON: None FINDINGS: No lacerations or contusions of the scalp or facial soft tissues. Calvarium and skull base are intact. No acte or chronic infarct. No effacement of the sulci or contreras-white matter interface. No acute hemorrhage. No intracranial mass,mass effect, or midline shift. No cortical atrophy. No signs of white matter small-vessel disease. No hydrocephalus.. No extra-axial fluid collection. Mild mucosal thickening of the bilateral ethmoid sinuses, nonspecific but could represent. Mastoid air cells and middle ear cavities are clear. Orbital contents are unremarkable. IMPRESSION: No acute intracranial abnormalities. Location: [facility] at 1301 Reported and signed by: Jeronimo Geller M.D.CC: Rain Candelario MD Technologist:OSCAR PACHECO RT(R)(CT) CTDI: DLP: Trnscb Date/Time: 12/09/2020 (1301) [email or web address] Orig Print D/T: S: 12/09/2020 (6739) PAGE 1 Signed [id number] 09:29:00 Test Item Value Reference Range Interpretation Comments TROPONIN-I (test code = TROPI) 0.058 ng/mL 0-0.045 HH COMMENTS TO FORK REPAIRER: COLLECT 3 HOURS AFTER PREVIOUS SAMPLEBASIC METABOLIC [id number] 06:22:00 Test Item Value Reference Range Interpretation Comments SODIUM (test code = 142 mmol/L 136-145 N NA) POTASSIUM (test code 4.6 mmol/L 3.5-5.1 N = K) CHLORIDE (test code 113.0 mmol/L 98-107 H = CL) CARBON DIOXIDE (test 25.0 mmol/L 21-32 N code = CO2) ANION GAP (test code 8.6 10-20 L = GAP) GLUCOSE (test code = 80 mg/dL 74-106 N GLU) BLOOD UREA NITROGEN 12 mg/dL 7-18 N (test code = BUN) GLOMERULAR > 60 mL/min See_Comment Estimated GFR b y FILTRATION RATE using Modifi ed MDRD (test code = GFR) formula.Ch ronic kidney disease is defined as eith er kidney damageor GFR <60 mL/min/1.73 m2 for >3 months. [Automated mess age] The system [email or web address] generated this result transmitted ref erence range: >=60. Th e reference range was not used to int erpret this result as normal/abnormal . CREATININE (test 1.00 mg/dL 0.7-1.3 N code = CREAT) BUN/CREATININE RATIO 12.5 10-20 N (test code = BUN/CREA) CALCIUM (test code = 8.5 mg/dL 8.5-10.1 N CA) [id number] 06:22:00 Test Item Value Reference Range Interpretation Comments PHOSPHORUS (test code = PHOS) 3.3 mg/dL 2.5-4.9 N [id number] 06:22:00 Test Item Value Reference Range Interpretation Comments MAGNESIUM (test code = MAG) 1.9 mg/dL 1.8-2.4 N [id number] 06:22:00 Test Item Value Reference Range Interpretation Comments TROPONIN-I (test 0.079 ng/mL 0-0.045 HH Results serafin led to code = TROPI) [id number] by Hortencia BUSH 12/09/20 0622Cr itical results verifie d and read back by Amanda rse? Y LACTIC [id number] 06:08:00 Test Item Value Reference Range Interpretation Comments LACTIC ACID (test code = LACT) 1.0 mmol/L 0.4-1.9 N [id number] 06:08:00 Test Item Value Reference Range Interpretation Comments GLYCOSYLATED HEMOGLOBIN 5.3 % HbA1 MEHRDAD VASQUEZ DIAGNOSIS: (HA1C) (test code = HbA1C GLYHGB) (%) ----- ----- Diab etic >6.4Prediabetes 5.7 - 6.4Normal <5. 7 ESTIMATED AVERAGE 105 MG/DL GLUCOSE (test code = EAG) C REACTIVE [id number] 06:08:00 Test Item Value Reference Range Interpretation Comments C REACTIVE PROTEIN (test code = < 0.40 mg/dL 0-0.3 H CRP) POC CALCIUM [id number] 06:07:00 Test Item Value Reference Range Interpretation Comments POC CALCIUM IONIZED (test code = 1.19 mmol/L 1.12-1.32 N CAIP) CBC W/AUTO [id number] 05:39:00 Test Item Value Reference Range Interpretation Comments WHITE BLOOD CELL (test code = 12.1 K/mm3 4.5-12.5 N WBC) RED BLOOD CELL (test code = 4.35 mill/mm3 4.0-5.8 N RBC) HEMOGLOBIN (test code = HGB) 13.7 gram/dL 13.0-17.5 N HEMATOCRIT (test code = HCT) 43.0 % 42.0-52.0 N MEAN CELL VOLUME (test code = 98.9 fL 80-98 H MCV) MEAN CELL HGB (test code = MCH) 31.5 picogram 27.0-33.0 N MEAN CELL HGB CONCETRATION 31.9 gram/dL 33.0-36.0 L (test code = MCHC) RED CELL DISTRIBUTION WIDTH 13.2 % 11.6-16.2 N (test code = RDW) RED CELL DISTRIBUTION WIDTH SD 47.9 fL 37.0-51.0 N (test code = RDW-SD) PLATELET COUNT (test code = 293 K/mm3 150-450 N PLT) MEAN PLATELET VOLUME (test code 9.3 fL 6.7-11.0 N = MPV) NEUTROPHIL % (test code = NT%) 67.0 % 39.0-69.0 N IMMATURE GRANULOCYTE % (test 0.3 % 0.0-5.0 N code = IG%) LYMPHOCYTE % (test code = LY%) 25.3 % 25.0-55.0 N MONOCYTE % (test code = MO%) 6.7 % 0.0-10.0 N EOSINOPHIL % (test code = EO%) 0.0 % 0.0-5.0 N BASOPHIL % (test code = BA%) 0.7 % 0.0-1.0 N NUCLEATED RBC % (test code = 0.0 % 0-0 N NRBC%) NEUTROPHIL # (test code = NT#) 8.11 K/mm3 1.8-7.7 H IMMATURE GRANULOCYTE # (test 0.04 x10 3/uL 0-0.03 H code = IG#) LYMPHOCYTE # (test code = LY#) 3.06 K/mm3 1.0-5.0 N MONOCYTE # (test code = MO#) 0.81 K/mm3 0-0.8 H EOSINOPHIL # (test code = EO#) 0.00 K/mm3 0.0-0.5 N BASOPHIL # (test code = BA#) 0.08 K/mm3 0.0-0.2 N NUCLEATED RBC # (test code = 0.00 K/mm3 0.0-0.1 N NRBC#) MANUAL DIFF REQUIRED (test code NO = MDIFF) DRUGS OF ABUSE SCREEN [id number] 04:36:00 Test Item Value Reference Range Interpretation Comments UA PH DIPSTICK (test 6.0 5.0-8.0 code = CORRINE) URN COCAINE (test code = POSITIVE See_Comment [A utomated message] COCAURN) The system [email or web address] generated this result transmitted ref erence range: <300 ng/ mL. The reference r rossy was not used to interpret this result as normal/abnor mal. URN CANNABINOIDS (test POSITIVE See_Comment [Aut omated message] code = CANNABURN) The system which generated this result transmitted ref erence range: <50 ng/m L. The reference range was not used to int erpret this result as normal/abnormal . URN AMPHETAMINE (test NEGATIVE See_Comment [Auto mated message] code = AMPHETURN) The system which generated this result transmitted ref erence range: <1000 ng /mL. The reference r rossy was not used to interpret this result as normal/abnor mal. URN BARBITURATE (test NEGATIVE See_Comment [Auto mated message] code = BARBITURN) The system which generated this result transmitted ref erence range: <200 ng/ mL. The reference r rossy was not used to interpret this result as normal/abnor mal. URN BENZODIAZEPINE (test NEGATIVE See_Comment [A utomated message] code = BENZOURN) The system which generated this result transmitted ref erence range: <200 ng/ mL. The reference r rossy was not used to interpret this result as normal/abnor mal. URN OPIATES (test code = POSITIVE See_Comment [A utomated message] OPIATURN) The system [email or web address] generated this result transmitted ref erence range: <300 ng/ mL. The reference r rossy was not used to interpret this result as normal/abnor mal. URN PHENCYCLIDINE (PCP) NEGATIVE See_Comment [Au tomated message] (test code = PHENCURN) The s ystem which generated this result transmitted ref erence range: <25 ng/m L. The reference range was not used to int erpret this result as normal/abnormal . URN METHADONE (test code NEGATIVE See_Comment [A utomated message] = METHAURN) The system [employer] h generated this result transmitted ref erence range: <300 ng/ mL. The reference r rossy was not used to interpret this result as normal/abnor mal. URINALYSIS [id number] 02:37:00 Test Item Value Reference Range Interpretation Comments UA COLOR (test code = COLU) YELLOW YELLOW UA APPEARANCE (test code = CLEAR CLEAR APPU) UA GLUCOSE DIPSTICK (test TRACE mg/dL NEGATIVE code = DGLUU) UA BILIRUBIN DIPSTICK (test NEGATIVE NEGATIVE code = BILU) UA KETONE DIPSTICK (test NEGATIVE mg/dL NEGATIVE code = KETU) UA SPECIFIC GRAVITY (test >=1.030 1.001-1.035 code = SGU) UA BLOOD DIPSTICK (test NEGATIVE NEGATIVE code = JESSI) UA PH DIPSTICK (test code = 6.0 5.0-8.0 CORRINE) UA PROTEIN DIPSTICK (test >=300 (3+) mg/dL Neg-15 code = PROU) UA UROBILINIOGEN DIPSTICK 0.2 mg/dL 0.0-0.2 (test code = URO) UA NITRITE DIPSTICK (test NEGATIVE NEGATIVE code = PEGGY) UA LEUKOCYTE ESTERASE W NEGATIVE NEGATIVE REFLEX (test code = LEUUR) UA WBC (test code = WBCU) 0-5 per HPF 0-5 UA RBC (test code = RBCU) NONE SEEN per HPF 0-5 UA EPITHELIAL CELLS (test per HPF Few code = EPIU) UA BACTERIA (test code = per HPF NONE BACU) UA AMORPHOUS SEDIMENT (test MODERATE per LPF NONE A code = AMORU) Urine Source? Clean CatchURINALYSIS [id number] 02:37:00 Test Item Value Reference Range Interpretation Comments UA COLOR (test code = YELLOW YELLOW COLU) UA APPEARANCE (test code CLEAR CLEAR = APPU) UA GLUCOSE DIPSTICK (test TRACE mg/dL NEGATIVE code = DGLUU) UA BILIRUBIN DIPSTICK NEGATIVE NEGATIVE (test code = BILU) UA KETONE DIPSTICK (test NEGATIVE mg/dL NEGATIVE code = KETU) UA SPECIFIC GRAVITY (test >=1.030 1.001-1.035 code = SGU) UA BLOOD DIPSTICK (test NEGATIVE NEGATIVE code = JESSI) UA PH DIPSTICK (test code 6.0 5.0-8.0 = CORRINE) UA PROTEIN DIPSTICK (test >=300 (3+) mg/dL Neg-15 code = PROU) UA UROBILINIOGEN DIPSTICK 0.2 mg/dL 0.0-0.2 (test code = URO) UA NITRITE DIPSTICK (test NEGATIVE NEGATIVE code = PEGGY) UA LEUKOCYTE ESTERASE W NEGATIVE NEGATIVE REFLEX (test code = LEUUR) UA WBC (test code = WBCU) 0-5 per HPF 0-5 UA RBC (test code = RBCU) NONE SEEN per HPF 0-5 UA EPITHELIAL CELLS (test Few (2-5/hpf) per Few code = EPIU) HPF UA BACTERIA (test code = MODERATE per HPF NONE A BACU) UA AMORPHOUS SEDIMENT MODERATE per LPF NONE A (test code = AMORU) Urine Source? Clean CatchDRUGS OF ABUSE SCREEN [id number] 02:30:00 Test Item Value Reference Range Interpretation Comments UA PH DIPSTICK (test 5.0-8.0 code = CORRINE) URN COCAINE (test code = POSITIVE See_Comment [A utomated message] COCAURN) The system [email or web address] generated this result transmitted ref erence range: <300 ng/ mL. The reference r rossy was not used to interpret this result as normal/abnor mal. URN CANNABINOIDS (test POSITIVE See_Comment [Aut omated message] code = CANNABURN) The system which generated this result transmitted ref erence range: <50 ng/m L. The reference range was not used to int erpret this result as normal/abnormal . URN AMPHETAMINE (test NEGATIVE See_Comment [Auto mated message] code = AMPHETURN) The system which generated this result transmitted ref erence range: <1000 ng /mL. The reference r rossy was not used to interpret this result as normal/abnor mal. URN BARBITURATE (test NEGATIVE See_Comment [Auto mated message] code = BARBITURN) The system which generated this result transmitted ref erence range: <200 ng/ mL. The reference r rossy was not used to interpret this result as normal/abnor mal. URN BENZODIAZEPINE (test NEGATIVE See_Comment [A utomated message] code = BENZOURN) The system which generated this result transmitted ref erence range: <200 ng/ mL. The reference r rossy was not used to interpret this result as normal/abnor mal. URN OPIATES (test code = POSITIVE See_Comment [A utomated message] OPIATURN) The system [email or web address] generated this result transmitted ref erence range: <300 ng/ mL. The reference r rossy was not used to interpret this result as normal/abnor mal. URN PHENCYCLIDINE (PCP) NEGATIVE See_Comment [Au tomated message] (test code = PHENCURN) The s ystem which generated this result transmitted ref erence range: <25 ng/m L. The reference range was not used to int erpret this result as normal/abnormal . URN METHADONE (test code NEGATIVE See_Comment [A utomated message] = METHAURN) The system [email or web address] generated this result transmitted ref erence range: <300 ng/ mL. The reference r rossy was not used to interpret this result as normal/abnor mal. URINALYSIS [id number] 02:26:00 Test Item Value Reference Range Interpretation Comments UA COLOR (test code = COLU) YELLOW YELLOW UA APPEARANCE (test code = CLEAR CLEAR APPU) UA GLUCOSE DIPSTICK (test TRACE mg/dL NEGATIVE code = DGLUU) UA BILIRUBIN DIPSTICK (test NEGATIVE NEGATIVE code = BILU) UA KETONE DIPSTICK (test NEGATIVE mg/dL NEGATIVE code = KETU) UA SPECIFIC GRAVITY (test >=1.030 1.001-1.035 code = SGU) UA BLOOD DIPSTICK (test code NEGATIVE NEGATIVE = JESSI) UA PH DIPSTICK (test code = 6.0 5.0-8.0 CORRINE) UA PROTEIN DIPSTICK (test >=300 (3+) mg/dL Neg-15 code = PROU) UA UROBILINIOGEN DIPSTICK 0.2 mg/dL 0.0-0.2 (test code = URO) UA NITRITE DIPSTICK (test NEGATIVE NEGATIVE code = PEGGY) UA LEUKOCYTE ESTERASE W NEGATIVE NEGATIVE REFLEX (test code = LEUUR) UA WBC (test code = WBCU) per HPF 0-5 UA RBC (test code = RBCU) per HPF 0-5 UA EPITHELIAL CELLS (test per HPF Few code = EPIU) UA BACTERIA (test code = per HPF NONE BACU) Urine Source? Clean CatchARTERIAL BLOOD [id number] 02:21:00 Test Item Value Reference Range Interpretation Comments ARTERIAL BLOOD GAS PH 7.24 7.35-7.45 L (test code = PHA) ARTERIAL BLOOD GAS PCO2 51.3 mm Hg 35-45 H (test code = PCO2A) ARTERIAL BLOOD GAS PO2 204.0 mmHg 80-100 H (test code = PO2A) BICARBONATE TOTAL HCO3 21.4 mmol/L 23.0-27.0 L (test code = HCO3) BASE EXCESS (test code = -6.5 mmol/L -3.0-5.0 LL Res ults called HOWARD) to and read back by Dedra 12/09/2020; by KRISTINA ABG O2 SATURATION (test 99.3 % 90.0-98.0 H code = SATA) ABG TYPE (test code = Arterial TYPEA) FIO2 (test code = FIO2A) 100.0 ABG VENT MODE (test code Assist Control = MODEA) ABG VENT RESP RATE (test 20.0 per min code = RRA) ABG TIDAL VOLUME (test 500.0 mL code = TVA) ABG PEEP (test code = 8.0 cmH2O PEEPA) ABG SITE (test code = Rt RADIAL SITEA) ARTERY MODIFIED ALLENS (test Yes CHECK PERFORMED code = MODALL) HEMATOCRIT (test code = 46 % 42-52 N HCT/ABG) TOTAL HGB (test code = 15.5 gram/dL 13.0-17.5 N THB) HGB O2 SAT (test code = 95.1 % 94.00-98.00 N HBOSAT) CARBOXYHEMOGLOBIN (test 3.8 %totalHg 0.5-1.5 HH Resu lts called code = HOHGBT) to and read back by Dedra 12/09/2020; by KRISTINA METHEMOGLOBIN (test code 0.4 % 0.0-1.50 N = METHGB) O2 CONTENT (test code = 21.1 % vol 18.0-22.0 N O2CT) PaO2/[id number] 02:21:00 Test Item Value Reference Range Interpretation Comments PaO2/FiO2 (test code = [id number]) mm/Hg ARTERIAL BLOOD [id number] 02:21:00 Test Item Value Reference Range Interpretation Comments ARTERIAL BLOOD GAS PH 7.24 7.35-7.45 L (test code = PHA) ARTERIAL BLOOD GAS PCO2 51.3 mm Hg 35-45 H (test code = PCO2A) ARTERIAL BLOOD GAS PO2 204.0 mmHg 80-100 H (test code = PO2A) BICARBONATE TOTAL HCO3 21.4 mmol/L 23.0-27.0 L (test code = HCO3) BASE EXCESS (test code = -6.5 mmol/L -3.0-5.0 LL Res ults called HOWARD) to and read back by Dedra 12/09/2020; by KRISTINA ABG O2 SATURATION (test 99.3 % 90.0-98.0 H code = SATA) ABG TYPE (test code = Arterial TYPEA) FIO2 (test code = FIO2A) 100.0 ABG VENT MODE (test code Assist Control = MODEA) ABG VENT RESP RATE (test 20.0 per min code = RRA) ABG TIDAL VOLUME (test 500.0 mL code = TVA) ABG PEEP (test code = 8.0 cmH2O PEEPA) ABG SITE (test code = Rt RADIAL SITEA) ARTERY MODIFIED ALLENS (test Yes CHECK PERFORMED code = MODALL) HEMATOCRIT (test code = 46 % 42-52 N HCT/ABG) TOTAL HGB (test code = 15.5 gram/dL 13.0-17.5 N THB) HGB O2 SAT (test code = 95.1 % 94.00-98.00 N HBOSAT) CARBOXYHEMOGLOBIN (test 3.8 %totalHg 0.5-1.5 HH Resu lts called code = HOHGBT) to and read back by Dedra 12/09/2020; by KRISTINA METHEMOGLOBIN (test code 0.4 % 0.0-1.50 N = METHGB) O2 CONTENT (test code = 21.1 % vol 18.0-22.0 N O2CT) PaO2/[id number] 02:21:00 Test Item Value Reference Range Interpretation Comments PaO2/FiO2 (test code = [id number]) 204.00 mm/Hg B-TYPE NATRIURETIC [id number] 02:21:00 Test Item Value Reference Range Interpretation Comments B-TYPE NATRIURETIC PEPTIDE 32.3 pgram/mL 0-100 N (test code = BNP) BASIC METABOLIC [id number] 02:17:00 Test Item Value Reference Range Interpretation Comments SODIUM (test code = 141 mmol/L 136-145 N NA) POTASSIUM (test code 3.6 mmol/L 3.5-5.1 N = K) CHLORIDE (test code 110.0 mmol/L 98-107 H = CL) CARBON DIOXIDE (test 17.0 mmol/L 21-32 L code = CO2) ANION GAP (test code 17.6 10-20 N = GAP) GLUCOSE (test code = 228 mg/dL 74-106 H GLU) BLOOD UREA NITROGEN 11 mg/dL 7-18 N (test code = BUN) GLOMERULAR > 60 mL/min See_Comment Estimated GFR b y FILTRATION RATE using Modifi ed MDRD (test code = GFR) formula. ron kidney disease is defined as eith er kidney damageor GFR <60 mL/min/1.73 m2 for >3 months. [Automated mess age] The system [email or web address] generated this result transmitted ref erence range: >=60. Th e reference range was not used to int erpret this result as normal/abnormal . CREATININE (test 1.10 mg/dL 0.7-1.3 N code = CREAT) BUN/CREATININE RATIO 10.0 10-20 N (test code = BUN/CREA) CALCIUM (test code = 8.5 mg/dL 8.5-10.1 N CA) HEPATIC FUNCTION [id number] 02:17:00 Test Item Value Reference Range Interpretation Comments TOTAL PROTEIN (test 7.3 gram/dL 6.4-8.2 N code = PROT) ALBUMIN (test code = 4.3 g/dL 3.4-5.0 N ALB) GLOBULIN (test code = 3.0 gram/dL 2.7-4.2 N GLOB) ALBUMIN/GLOBULIN RATIO 1.4 0.75-1.50 N (test code = A/G) BILIRUBIN TOTAL (test 0.40 mg/dL 0.0-1.0 N code = BILT) BILIRUBIN DIRECT (test 0.10 mg/dL 0.0-0.20 N code = BILD) SGOT/AST (test code = 53 IUnit/L 15-37 H AST) SGPT/ALT (test code = 46 IUnit/L 12-78 N ALT) ALKALINE PHOSPHATASE 109 IUnit/L 45-117 N Note change in TOTAL (test code = reference range due ALKP) to change in reagent. [id number] 02:17:00 Test Item Value Reference Range Interpretation Comments PHOSPHORUS (test code = PHOS) 6.7 mg/dL 2.5-4.9 H [id number] 02:17:00 Test Item Value Reference Range Interpretation Comments LIPASE (test code = LIP) 36 U/L 12-57 N [id number] 02:17:00 Test Item Value Reference Range Interpretation Comments MAGNESIUM (test code = MAG) 2.1 mg/dL 1.8-2.4 N CPK-MB [id number] 02:17:00 Test Item Value Reference Range Interpretation Comments CREATINE KINASE 620 IUnit/L 26-208 H (CK) (test code = CK) CKMB (test code = 5.8 ng/mL 0-6.0 N CKMBT) RELATIVE % INDEX 0.94 % 0.00-2.50 N "If the tot al CK is (test code = REL%) elevated, the CKMB Fraction must beinterpreted a s a Relative % Inde x, Normal is less than 2.5%"NOTE: Rela tive % Index is not va lid with a normal total CK. [id number] 02:17:00 Test Item Value Reference Range Interpretation Comments TROPONIN-I (test code = TROPI) < 0.006 ng/mL 0-0.045 N [id number] 02:17:00 Test Item Value Reference Range Interpretation Comments ALCOHOL (test code = 74 mg/dL 0.0-3.0 H ------- INTERPRE ALC) TIVE DATA NOTE: POSITIVE SCREEN ING RESULTS SHOULD BE CONSIDERED PRESUMPTIVE.WHE N COLLECTED FOR M EDICAL PURPOSES ONLY. SPECIMEN WILL NOTBE URIEL ECTED BY CHAIN OF CUSTOD Y.IF A CONFIRMATION OF POSITIVE RESULTS IS JENNIFER RED, ACONFIRMATION T EST MUST BE REQUESTED BY THE PHYSICIAN AT AN ADDITIONAL CHARGE TO THE P ATIENT. LACTIC [id number] 01:42:00 Test Item Value Reference Range Interpretation Comments LACTIC ACID (test 3.8 mmol/L 0.4-1.9 HH Results ca lled to code = LACT) [id number] by MADDY MONROE 12/09/20 [id number] itical results verifie d and read back by Nu rse? Y CBC W/AUTO [id number] 01:22:00 Test Item Value Reference Range Interpretation Comments WHITE BLOOD CELL (test code = 10.1 K/mm3 4.5-12.5 N WBC) RED BLOOD CELL (test code = 4.44 mill/mm3 4.0-5.8 N RBC) HEMOGLOBIN (test code = HGB) 14.2 gram/dL 13.0-17.5 N HEMATOCRIT (test code = HCT) 44.8 % 42.0-52.0 N MEAN CELL VOLUME (test code = 100.9 fL 80-98 H MCV) MEAN CELL HGB (test code = MCH) 32.0 picogram 27.0-33.0 N MEAN CELL HGB CONCETRATION 31.7 gram/dL 33.0-36.0 L (test code = MCHC) RED CELL DISTRIBUTION WIDTH 13.2 % 11.6-16.2 N (test code = RDW) RED CELL DISTRIBUTION WIDTH SD 49.4 fL 37.0-51.0 N (test code = RDW-SD) PLATELET COUNT (test code = 306 K/mm3 150-450 N PLT) MEAN PLATELET VOLUME (test code 9.6 fL 6.7-11.0 N = MPV) NEUTROPHIL % (test code = NT%) 48.0 % 39.0-69.0 N IMMATURE GRANULOCYTE % (test 1.1 % 0.0-5.0 N code = IG%) LYMPHOCYTE % (test code = LY%) 43.6 % 25.0-55.0 N MONOCYTE % (test code = MO%) 6.2 % 0.0-10.0 N EOSINOPHIL % (test code = EO%) 0.0 % 0.0-5.0 N BASOPHIL % (test code = BA%) 1.1 % 0.0-1.0 H NUCLEATED RBC % (test code = 0.0 % 0-0 N NRBC%) NEUTROPHIL # (test code = NT#) 4.85 K/mm3 1.8-7.7 N IMMATURE GRANULOCYTE # (test 0.11 x10 3/uL 0-0.03 H code = IG#) LYMPHOCYTE # (test code = LY#) 4.40 K/mm3 1.0-5.0 N MONOCYTE # (test code = MO#) 0.63 K/mm3 0-0.8 N EOSINOPHIL # (test code = EO#) 0.00 K/mm3 0.0-0.5 N BASOPHIL # (test code = BA#) 0.11 K/mm3 0.0-0.2 N NUCLEATED RBC # (test code = 0.00 K/mm3 0.0-0.1 N NRBC#) MANUAL DIFF REQUIRED (test code NO = MDIFF) PROTHROMBIN [id number] 01:22:00 Test Item Value Reference Range Interpretation Comments PROTHROMBIN TIME 11.5 seconds 9.0-14.0 N PATIENT (test code = PTP) INTERNATIONAL NORMAL 1.0 0.8-1.2 N The the rapeutic range RATIO (test code = for oral INR) anticoagulant t herapy formost indicat ions is an internati onal normalized rati o (INR)of between 2.0 and 3.0. The recommended therapeutic INR range for various cli nical situations is l isted below: Clinical Situat ion INR range Pulmonary embol ism treatment (2.0-3.0)Venous thrombosis treatmentVenous thrombosis prophylaxis (hi gh risk surgery)Prevent ion of systemic emboli sm from: Acute myocardial infa rction Valvular heart disease Atrial fibrillation Mechanical pros thetic heart valves (2.5-3.5) IS PATIENT ON ANTICOAGULANTS? NTHROMBOPLASTIN TIME [id number] 01:22:00 Test Item Value Reference Range Interpretation Comments THROMBOPLASTIN TIME PARTIAL 28.4 seconds 23.0-37.0 N (test code = PTT) IS PATIENT ON ANTICOAGULANTS? N- XR CHEST 1 [id number] 01:06:00 [facility] 1985 Sex: M FAX: Rain Candelario MD Anza: St: ADM Name: BERKLEY SAMS [facility] : 1985 Age/S: [id number]/[id number] Unit #: [id number] Loc: [place] [address] Phys: Rain Candelario MD Acct: [id number] Dis Date: Status: ADM IN PHONE #: [phone] Exam Date: 12/09/20205 FAX #: [phone] Reason: SHORTNESS OF BREATH EXAMS: CPT CODE: [id number] XR CHEST 1 V 37004 HISTORY: Shortness of breath Location code: B2 FINDINGS: Frontal view of the chest demonstrates normal cardiomediastinal silhouette. The trachea is midline. Patchy opacity right lower lobe. There is no effusion or pneumothorax. The bones are intact. ET tube and NG tube are in good position. IMPRESSION: 1. Right lower lobe pneumonia. 2. ET tube and NG tube are in good position. Electronically Signed by Josh Quinones M.D. on12/09/2020 at 0106 Reported and signed by: Josh Quinones M.D. CC: Rain Candelario MD Technologist: Evelio Canela RT(R) Trnscrd Date/Time/By: 12/09/2020 (0106) : By: [email or web address] Orig Print D/T: S: 12/09/2020 (0109) PAGE 1 Signed ReportCOVID 19 INHOUSE [id number] 01:00:00 Test Item Value Reference Range Interpretation Comments COVID 19 INHOUSE AG (test code = NEGATIVE NEGATIVE [id number])
[2022-06-22] MEDS ORDERED: dexAMETHasone 10 MG/ML VIAL ONE (12:46)
--- NOTE | 2022-06-22 13:09 | ER ---
Nurse's Notes [facility] Name: John Peralta Age: 37 yrs Sex: Male : 1985 Arrival Date: 06/22/2022 Time: 11:58 Bed 12 Private MD: Diagnosis: Uvulitis Presentation: 06/22 12:13 Chief complaint: Patient states: I woke up this morning having trouble swallowing, I kr3 tried to swallow and it hurt and felt like my throat was swollen shut. I felt like I needed to clear my throat and there was a lump but I got it up and it was a clot of blood. Then got some more mucous up that was clear. Coronavirus screen: Vaccine status: Patient reports being unvaccinated. Client denies travel out of the [place] in the last 14 days. Ebola Screen: Patient denies travel to an Ebola-affected area in the 21 days before illness onset. Initial Sepsis Screen: Does the patient meet any 2 criteria? No. Patient's initial sepsis screen is negative. Does the patient have a suspected source of infection? No. Patient's initial sepsis screen is negative. Risk Assessment: Do you want to hurt yourself or someone else? Patient reports no desire to harm self or others. Onset of symptoms was June 22, 2022. 12:13 Method Of Arrival: Ambulatory kr3 12:13 Acuity: YUKI 4 kr3 Triage Assessment: 12:19 General: Appears in no apparent distress. uncomfortable, Behavior is calm, cooperative, kr3 appropriate for age. Pain: Denies pain. Historical: - Allergies: 12:17 Sulfa (Sulfonamide Antibiotics); kr3 - PMHx: 12:17 Heart disease; PE; kr3 - Immunization history:: Adult Immunizations not up to date. - Social history:: Smoking status: Patient reports the use of cigarette tobacco products, smokes one pack cigarettes per day. Screenin:30 [facility] ED Fall Risk Assessment (Adult) History of falling in the last 3 months, kb3 including since admission No falls in past 3 months (0 pts) Confusion or Disorientation No (0 pts) Intoxicated or Sedated No (0 pts) Impaired Gait No (0 pts) Mobility Assist Device Used No (0 pt) Altered Elimination No (0 pt) Score/Fall Risk Level 0 - 2 = Low Risk Oriented to surroundings, Maintained a safe environment, Educated pt \T\ family on fall prevention, incl call for assistance when getting out of bed, Assessed \T\ reinforced patient's understanding of fall precautions, Provided non-skid footwear, Hourly rounding (assess needs \T\ fall precautionary measures) done, Used ambulatory aids as needed (educated on \T\ assisted with), Used gait belt as appropriate. Abuse screen: Denies threats or abuse. Denies injuries from another. Nutritional screening: No deficits noted. Tuberculosis screening: No symptoms or risk factors identified. Assessment: 12:30 General: Received care of pt from triage, AAO x3. Pt reports sore throat, difficulty kb3 swallowing x2 days with associated congestion. Denies fever. 12:30 Respiratory: Airway is patent Respiratory effort is even, unlabored, Breath sounds are kb3 clear bilaterally. EENT: Throat is reddened has enlarged tonsils on right. Vital Signs: 12:13 BP 140 / 99; Pulse 85; Resp 18; Temp 99.1(TE); Pulse Ox 100% on R/A; Weight 106.59 kg; kr3 Height 5 ft. 11 in. (180.34 cm); Pain 0/10; 13:30 BP 138 / 91; Pulse 80; Resp 18; Pulse Ox 100% ; kb3 12:13 Body Mass Index 32.78 (106.59 kg, 180.34 cm) kr3 ED Course: 11:58 Patient arrived in ED. rg4 11:58 Alicia Miller PA is PHCP. en 11:58 Emil Lopez MD is Attending Physician. en 12:17 Triage completed. kr3 12:19 Patient placed in an exam room, on a stretcher. kr3 12:28 Nelda Medina, RN is Primary Nurse. kb3 12:30 Patient has correct armband on for positive identification. Bed in low position. kb3 12:30 No provider procedures requiring assistance completed. Patient did not have IV access kb3 during this emergency room visit. 12:40 Rapid Strep Sent. kb3 Administered Medications: 12:47 Drug: Decadron (dexamethasone) 10 mg Route: IM; Site: Ventrogluteal RIGHT; kb3 13:30 Follow up: Response: No adverse reaction kb3 Medication: 12:30 VIS not applicable for this client. kb3 Outcome: 13:08 Discharge ordered by MD. kaba 13:45 Discharged to home ambulatory. kb3 13:45 Condition: stable 13:45 Discharge instructions given to patient, Instructed on discharge instructions, follow up and referral plans. medication usage, Demonstrated understanding of instructions, follow-up care, medications, Prescriptions given X 1. 14:02 Patient left the ED. kb3 Signatures: Zoila Johnson rg4 Alicia Miller PA PA en Reid, Kelley RN RN kr3 Nelda Medina, ISABEL RN kb3 Corrections: (The following items were deleted from the chart) 14:00 13:59 Respiratory: Airway is patent Respiratory effort is even, unlabored, Breath kb3 sounds are clear bilaterally. kb3 14:00 13:59 EENT: Throat is reddened has enlarged tonsils on right kb3 kb3
--- NOTE | 2022-06-22 13:09 | EDPHYS ---
Physician Documentation [facility] Name: John Peralta Age: 37 yrs Sex: Male : 1985 Arrival Date: 06/22/2022 Time: 11:58 Bed 12 Private MD: ED Physician Emil Lopez HPI: 06/22 12:46 This 37 yrs old Male presents to ER via Ambulatory with complaints of Sore Throat, en Coughing Up Blood. 12:46 37 yo M with no PMHx presents to ED with sore throat and muffled voice since waking en today. Pt snores and reports he woke with feeling like his uvula was swollen. He is able to swallow and no trouble breathing. Denies F/C/N/V. . Historical: - Allergies: 12:17 Sulfa (Sulfonamide Antibiotics); kr3 - PMHx: 12:17 Heart disease; PE; kr3 - Immunization history:: Adult Immunizations not up to date. - Social history:: Smoking status: Patient reports the use of cigarette tobacco products, smokes one pack cigarettes per day. ROS: 12:46 Constitutional: Negative for fever, chills, and weight loss. en 12:46 ENT: Positive for sore throat. 12:46 Respiratory: Negative for cough, shortness of breath, wheezing. Exam: 12:46 Constitutional: This is a well developed, well nourished patient who is awake, alert, en and in no acute distress. Head/Face: Normocephalic, atraumatic. Eyes: Pupils equal round and reactive to light, extra-ocular motions intact. Lids and lashes normal. Conjunctiva and sclera are non-icteric and not injected. Cornea within normal limits. Periorbital areas with no swelling, redness, or edema. ENT: Nares patent. No nasal discharge, no septal abnormalities noted. Tympanic membranes are normal and external auditory canals are clear. Oropharynx with mild swelling and inflammation to uvula, no tonsillar hypertrophy or exudates. No Soft palate fullness or uvular shift. Muffled voice but handling secretions and airway patent. Mucous membranes moist. Neck: Trachea midline, no thyromegaly or masses palpated, and no cervical lymphadenopathy. Supple, full range of motion without nuchal rigidity, or vertebral point tenderness. No Meningismus. Cardiovascular: Regular rate and rhythm with a normal S1 and S2. No gallops, murmurs, or rubs. Normal PMI, no JVD. No pulse deficits. Respiratory: Lungs have equal breath sounds bilaterally, clear to auscultation and percussion. No rales, rhonchi or wheezes noted. No increased work of breathing, no retractions or nasal flaring. Skin: Warm, dry with normal turgor. Normal color with no rashes, no lesions, and no evidence of cellulitis. Vital Signs: 12:13 BP 140 / 99; Pulse 85; Resp 18; Temp 99.1(TE); Pulse Ox 100% on R/A; Weight 106.59 kg; kr3 Height 5 ft. 11 in. (180.34 cm); Pain 0/10; 13:30 BP 138 / 91; Pulse 80; Resp 18; Pulse Ox 100% ; kb3 12:13 Body Mass Index 32.78 (106.59 kg, 180.34 cm) kr3 MDM: 12:46 Differential diagnosis: Allergic rhinitis, group A strep tonsillitis, laryngitis, en mononucleosis, peritonsillar abscess pharyngitis, retropharyngeal abcess tonsillitis, upper respiratory infection, uvulitis, viral syndrome. Data reviewed: vital signs, nurses notes, lab test result(s), strep test in ED, and as a result, I will give IM decadron. 13:06 ED course: Strep Negative. Considered CT imaging of neck, but improving and lower en concern for peritonsillar absess, retropharyndeal abscess. Spoke with pt regarding Uvulitis from ?viral illness. Improving after IM decadron. Will d/c home with Augmentin to cover occult infection. ER return warnings reviewed. 13:08 Patient medically screened. en 06/22 12:31 Order name: Rapid Strep; Complete Time: 13:06 en 06/22 12:54 Order name: Throat Culture EDMS Administered Medications: 12:47 Drug: Decadron (dexamethasone) 10 mg Route: IM; Site: Ventrogluteal RIGHT; kb3 13:30 Follow up: Response: No adverse reaction kb3 Disposition: 14:15 Co-signature as Attending Physician, Emil Lopez MD. rn Disposition Summary: 06/22/22 13:08 Discharge Ordered Location: Home en Problem: new en Symptoms: have improved en Condition: Stable en Diagnosis - Uvulitis en Followup: en - With: Private Physician - When: As needed - Reason: Re-evaluation by your physician Discharge Instructions: - Discharge Summary Sheet en - Uvulitis en Forms: - Medication Reconciliation Form en - Thank You Letter en - Antibiotic Education en - Prescription Opioid Use en - Work release form kb3 Prescriptions: - Augmentin 500-125 mg Oral Tablet - take 1 tablet by ORAL route every 8 hours for 10 days; 30 tablet; Refills: 0, en Product Selection Permitted Signatures: Dispatcher [employer] EDMS Emil Lopez MD MD rn Alicia Miller PA PA en Sheri Menendez RN RN kr3 Nelda Medina RN RN kb3
[2022-06-22 14:14] VITALS: TEMP 99.1; O2SAT 100
[2022-06-22 14:15] VITALS: BP 138/91
== END 2022-06-22 14:02 | disposition home or self-care (01) ==
LOC: ER 11:55
DX: K12.2 Cellulitis and abscess of mouth (principal); F17.210 Nicotine dependence, cigarettes, uncomplicated; Z88.2 Allergy status to sulfonamides
CPT/HCPCS: 87070; 87081; 96372; 99283; J1100

== ENCOUNTER 2022-10-22 09:29 | Emergency (ER) | payer OTHER, SELFPAY ==
--- OUTSIDE RECORDS SUMMARY | 2022-10-22 09:36 | XMS REPORT | Continuity of Care Document ---
:1985 Author Organization [facility] t Address [address] [place] [address] [place] [id number] Care Team Providers Name Role Phone RADHA Attending Clinician Unavailable Burke Vital Attending Clinician [phone] Basil Elizalde Attending Clinician Unavailable Rosaura Tidwell [...] Hospita l Clinics Anxiety Anxiety Problem Active Midnight 7- Communi 00:00: ty 00 Hospita l Clinics Essential Essential Problem Active Swe carol hypertensi Hypertensi 7-26 Co mmuni on on 00:00: ty 00 Hospita l Clinics Paroxysmal Paroxysmal Problem Active S weeny supraventr Supraventr 01-14 Co mmuni icular icular 00:00: ty tachycardi Tachycardi 00 Ho spialice a a [facility] History of History of Problem Active S suman cocaine Cocaine 01-14 Communi abuse Abuse 00:00: ty 00 [facility] Pulmonary Pulmonary Problem Active Swe carol embolism Embolism 12-18 Commun i 00:00: ty 00 [facility] Current Current Problem Active Midnight drug user Drug User 12-18 Comm uni 00:00: ty 00 [facility] Allergies, Adverse Reactions, Alerts Allergy Allergy Status Severity Reaction(s) Onset Inactive Treating Comm ents Source Name Type Date Date Clinician Sulfa DA Active U HIVES [facility] (Sulfona 6-20 Clear mide 00:00: [place] Antibiot 00 Regiona ics) [facility] Sulfa DA Active U [facility] (Sulfona 9- [place] mide 00:00: e Antibiot 00 Medical ics) Center No Known DA Active U 2007- [facility] Contrast 9-11 [place] Allergie 00:00: e s 00 Medical Center No Known DA Active U 2007-0 [facility] Food 9-11 [place] Allergie 00:00: e s 00 [facility] Center No Known DA [facility] U 2007[facility]0 [facility] SULFA DA Active U 2007-0 [facility] DRUGS 9-11 [place] 00:[facility]: e 00 [facility] SULFA Allergy Active Severe Other Midnight (SULFONA to Communi MIDE substanc ty ANTIBIOT e Hospita ICS) [facility] Social History Smoking Status Start Date Stop Date Source Heavy Tobacco Smoker Midnight Comm [facility] Medications Ordered Filled Start Stop Current Ordering Indication Dosage Frequency Signature Comments Components Source Medication Medication Date Date Medication? Clinician (SIG) Name Name bupropion bupropion No 1 Q1D bupropion Midnight HCl XL 150 HCl XL 150 HCl [...] Eliquis 5 Eliquis 5 No Eliquis 5 Midnight mg tablet mg tablet mg tablet Communi TAKE 1 TAKE 1 TAKE 1 ty TABLET BY TABLET BY TABLET BY Hospita MOUTH TWICE MOUTH TWICE MOUTH l DAILY DAILY TWICE Clinics DAILY ID NOW ID NOW No ID NOW Midnight COVID-19 COVID-19 COVID-19 [facility] maria g Test Kit Test Kit Test Kit ty USE USE USE Hospita DIRECTED DIRECTED DIRECTED l TEST TEST TEST Clinics lisinopril lisinopril No 1 Q1D lisinopril Midnight 10 mg 10 mg 10 mg Communi tablet Take tablet Take tablet ty 1 tablet 1 tablet Take 1 Hospi ta every day every day tablet l by oral by oral every day Clin ics route. route. by oral route. metoprolol metoprolol No metoprolol Midnight succinate succinate succinate Communi ER 200 mg ER 200 mg ER 200 mg ty tablet,exte tablet,exte tablet,ext Hospita nded nded ended l release 24 release 24 release 24 Clinics hr TAKE 1 hr TAKE 1 hr TAKE 1 TABLET BY TABLET BY TABLET BY MOUTH EVERY MOUTH EVERY MOUTH DAY DAY EVERY DAY bupropion bupropion No bupropion Midnight HCl XL 150 HCl XL 150 HCl XL 150 Communi mg 24 hr mg 24 hr mg 24 hr ty tablet, tablet, tablet, Hospit a extended extended extended l release release release Clinic s TAKE 1 TAKE 1 TAKE 1 TABLET BY TABLET BY TABLET BY MOUTH EVERY MOUTH EVERY MOUTH DAY DAY EVERY DAY Eliquis 5 Eliquis 5 No Eliquis 5 Midnight mg tablet mg tablet mg tablet Communi TAKE 1 TAKE 1 TAKE 1 ty TABLET BY TABLET BY TABLET BY Hospita MOUTH TWICE MOUTH TWICE MOUTH l DAILY DAILY TWICE Clinics DAILY ID NOW ID NOW No ID NOW Midnight COVID-19 COVID-19 COVID-19 [facility] maria g Test Kit Test Kit Test Kit ty USE USE USE Hospita DIRECTED DIRECTED DIRECTED l TEST TEST TEST Clinics lisinopril lisinopril No 1 Q1D lisinopril Midnight 20 20 20 Communi mg-hydrochl mg-hydrochl mg-hydroch ty orothiazide orothiazide lorothiazi Hospita 12.5 mg 12.5 mg de 12.5 mg l tablet Take tablet Take tablet Clinics 1 tablet 1 tablet Take 1 every day every day tablet by oral by oral every day route. route. by oral route. metoprolol metoprolol No metoprolol Midnight succinate succinate succinate Communi ER 200 mg ER 200 mg ER 200 mg ty tablet,exte tablet,exte tablet,ext Hospita nded nded ended l release 24 release 24 release 24 Clinics hr TAKE 1 hr TAKE 1 hr TAKE 1 TABLET BY TABLET BY TABLET BY MOUTH EVERY MOUTH EVERY MOUTH DAY DAY EVERY DAY bupropion bupropion No bupropion Midnight HCl XL 150 HCl XL 150 HCl XL 150 Communi mg 24 hr mg 24 hr mg 24 hr ty tablet, tablet, tablet, Hospit a extended extended extended l release release release Clinic s TAKE 1 TAKE 1 TAKE 1 TABLET BY TABLET BY TABLET BY MOUTH EVERY MOUTH EVERY MOUTH DAY DAY EVERY DAY cyclobenzap cyclobenzap No 1 Q1D cyclobenza Midnight rine 10 mg rine 10 mg lina 10 Communi tablet Take tablet Take mg tablet ty 1 tablet 1 tablet Take 1 Hospi ta every day every day tablet l by oral by oral every day Clin ics route at route at by oral bedtime. bedtime. route at bedtime. Eliquis 5 Eliquis 5 No Eliquis 5 Midnight mg tablet mg tablet mg tablet Communi TAKE 1 TAKE 1 TAKE 1 ty TABLET BY TABLET BY TABLET BY Hospita MOUTH TWICE MOUTH TWICE MOUTH l DAILY DAILY TWICE Clinics DAILY ID NOW ID NOW No ID NOW Midnight COVID-19 COVID-19 COVID-19 Com maria g Test Kit Test Kit Test Kit ty USE USE USE Hospita DIRECTED DIRECTED DIRECTED l TEST TEST TEST Clinics lisinopril lisinopril No 1 Q1D lisinopril Midnight 20 20 20 Communi mg-hydrochl mg-hydrochl mg-hydroch ty orothiazide orothiazide lorothiazi Hospita 12.5 mg 12.5 mg de 12.5 mg l tablet Take tablet Take tablet Clinics 1 tablet 1 tablet Take 1 every day every day tablet by oral by oral every day route. route. by oral route. metoprolol metoprolol No metoprolol Midnight succinate succinate succinate Communi ER 200 mg ER 200 mg ER 200 mg ty tablet,exte tablet,exte tablet,ext Hospita nded nded ended l release 24 release 24 release 24 Clinics hr TAKE 1 hr TAKE 1 hr TAKE 1 TABLET BY TABLET BY TABLET BY MOUTH EVERY MOUTH EVERY MOUTH DAY DAY EVERY DAY acetaminoph acetaminoph No acetaminop Midnight en 300 en 300 hen 300 Communi mg-codeine mg-codeine mg-codeine ty 30 mg 30 mg 30 mg Hospita tablet TAKE tablet TAKE tablet l 1 TO 2 1 TO 2 TAKE 1 TO Clinic s TABLETS BY TABLETS BY 2 TABLETS MOUTH EVERY MOUTH EVERY BY MOUTH 6 HOURS 6 HOURS EVERY 6 NEEDED NEEDED HOURS NEEDED azithromyci azithromyci No azithromyc Midnight n 250 mg n 250 mg in 250 mg Co mmuni tablet tablet tablet ty Hospita l Clinics BuSpar 10 BuSpar 10 No 1 TID BuSpar 10 Midnight mg tablet mg tablet mg tablet Communi Take 1 Take 1 Take 1 ty tablet 3 tablet 3 tablet 3 Hos collins times a day times a day times a l by oral by oral day by Clinics route. route. oral route. clindamycin clindamycin No clindamyci Midnight HCl 150 mg HCl 150 mg n HCl 150 Communi capsule TK capsule TK mg capsule ty 1 C PO TID 1 C PO TID TK 1 C PO Hospita TAT TAT TID TAT l [facility] Eliqu 5 Eliquis 5 No 1 BID Eliquis 5 Midnight mg tablet mg tablet mg tablet Communi Take 1 Take 1 Take 1 ty tablet tablet tablet Hospita twice a day twice a day twice a l by oral by oral day by Clinics route. route. oral route. tramadol 50 tramadol 50 No tramadol Midnight mg tablet mg tablet 50 mg Comm uni TK 1 TO 2 TK 1 TO 2 tablet TK ty TS PO QID TS PO QID 1 TO 2 TS Hospita PRN P PRN P PO QID PRN l P Clinics buspirone buspirone No buspirone Midnight 10 mg 10 mg 10 mg Communi tablet TAKE tablet TAKE tablet ty 1 TABLET BY 1 TABLET BY TAKE 1 Hospita MOUTH THREE MOUTH THREE TABLET BY l TIMES DAILY TIMES DAILY MOUTH Clinics THREE TIMES DAILY Eliquis 5 Eliquis 5 No 1 BID Eliquis 5 Midnight mg tablet mg tablet mg tablet Communi Take 1 Take 1 Take 1 ty tablet tablet tablet Hospita twice a day twice a day twice a l by oral by oral day by Clinics route. route. oral route. metoprolol metoprolol No 1 Q1D metoprolol Midnight succinate succinate succinate Communi ER 50 mg ER 50 mg ER 50 mg ty tablet,exte tablet,exte tablet,ext Hospita nded nded ended l release 24 release 24 release 24 Clinics hr Take 1 hr Take 1 hr Take 1 tablet tablet tablet every day every day every day by oral by oral by oral route. route. route. buspirone buspirone No buspirone Midnight 10 mg 10 mg 10 mg Communi tablet TAKE tablet TAKE tablet ty 1 TABLET BY 1 TABLET BY TAKE 1 Hospita MOUTH THREE MOUTH THREE TABLET BY l TIMES DAILY TIMES DAILY MOUTH Clinics THREE TIMES DAILY Eliquis 5 Eliquis 5 No Eliquis 5 Midnight mg tablet mg tablet mg tablet Communi TAKE 1 TAKE 1 TAKE 1 ty TABLET BY TABLET BY TABLET BY Hospita MOUTH TWICE MOUTH TWICE MOUTH l DAILY DAILY TWICE Clinics DAILY ID NOW ID NOW No ID NOW [place] COVID-19 COVID-19 COVID-19 Com maria g Test Kit Test Kit Test Kit ty USE USE USE Hospita DIRECTED DIRECTED DIRECTED l TEST TEST TEST Clinics metoprolol metoprolol No 1 Q1D metoprolol Midnight succinate succinate succinate Communi ER 100 mg ER 100 mg ER 100 mg ty tablet,exte tablet,exte tablet,ext Hospita nded nded ended l release 24 release 24 release 24 Clinics hr Take 1 hr Take 1 hr Take 1 tablet tablet tablet every day every day every day by oral by oral by oral route. route. route. metoprolol metoprolol No metoprolol Midnight succinate succinate succinate Communi ER 50 mg ER 50 mg ER 50 mg ty tablet,exte tablet,exte tablet,ext Hospita nded nded ended l release 24 release 24 release 24 Clinics hr TAKE 1 hr TAKE 1 hr TAKE 1 TABLET BY TABLET BY TABLET BY MOUTH EVERY MOUTH EVERY MOUTH DAY DAY EVERY DAY buspirone buspirone No buspirone Midnight 10 mg 10 mg 10 mg Communi tablet TAKE tablet TAKE tablet ty 1 TABLET BY 1 TABLET BY TAKE 1 Hospita MOUTH THREE MOUTH THREE TABLET BY l TIMES DAILY TIMES DAILY MOUTH Clinics THREE TIMES DAILY Eliquis 5 Eliquis 5 No Eliquis 5 Midnight mg tablet mg tablet mg tablet Communi TAKE 1 TAKE 1 TAKE 1 ty TABLET BY TABLET BY TABLET BY Hospita MOUTH TWICE MOUTH TWICE MOUTH l DAILY DAILY TWICE Clinics DAILY ID NOW ID NOW No ID NOW Midnight COVID-19 COVID-19 COVID-19 Com maria g Test Kit Test Kit Test Kit ty USE USE USE Hospita DIRECTED DIRECTED DIRECTED l TEST TEST TEST Clinics metoprolol metoprolol No metoprolol Midnight succinate succinate succinate Communi ER 100 mg ER 100 mg ER 100 mg ty tablet,exte tablet,exte tablet,ext Hospita nded nded ended l release 24 release 24 release 24 Clinics hr TAKE 1 hr TAKE 1 hr TAKE 1 TABLET BY TABLET BY TABLET BY MOUTH EVERY MOUTH EVERY MOUTH DAY DAY EVERY DAY metoprolol metoprolol No 1 Q1D metoprolol Midnight succinate succinate succinate Communi ER 200 mg ER 200 mg ER 200 mg ty tablet,exte tablet,exte tablet,ext Hospita nded nded ended l release 24 release 24 release 24 Clinics hr Take 1 hr Take 1 hr Take 1 tablet tablet tablet every day every day every day by oral by oral by oral route. route. route. Vital Signs Vital Name Observation Time Observation Value Comments Source BMI (Body Mass 2021-08-06 00:00:00 36.1 kg/m2 [facility]) [facility] s BP Systolic 2021-08-06 00:00:00 134 mm[Hg] [facility] s Body Weight 2021-08-06 00:00:00 4144 [oz_av] [facility] s BP Diastolic 2021-08-06 00:00:00 88 mm[Hg] [facility] s Height 2021-08-06 00:00:00 71 [in_i] [facility] s BP Diastolic 2021-07-18 00:00:00 92 mm[Hg] [facility] s Height 2021-07-18 00:00:00 71 [in_i] [facility] s BMI (Body Mass 2021-07-18 00:00:00 36.3 kg/m2 [facility]) [facility] s BP Systolic 2021-07-18 00:00:00 164 mm[Hg] [facility] s Body Weight 2021-07-18 00:00:00 4160 [oz_av] [facility] s BMI (Body Mass 2021-06-20 00:00:00 37.1 kg/m2 [facility]) [facility] s BP Systolic 2021-06-20 00:00:00 140 mm[Hg] [facility] s Body Weight 2021-06-20 00:00:00 4256 [oz_av] [facility] s BP Diastolic 2021-06-20 00:00:00 101 mm[Hg] [facility] s Height 2021-06-20 00:00:00 71 [in_i] [facility] s BP Diastolic 2021-04-09 00:00:00 88 mm[Hg] [facility] s Height 2021-04-09 00:00:00 71 [in_i] [facility] s BMI (Body Mass 2021-04-09 00:00:00 37.2 kg/m2 [facility]) [facility] s BP Systolic 2021-04-09 00:00:00 164 mm[Hg] [facility] s Body Weight 2021-04-09 00:00:00 4272 [oz_av] [facility] s BP Diastolic 2021-01-14 00:00:00 94 mm[Hg] [facility] s Height 2021-01-14 00:00:00 71 [in_i] [facility] s BMI (Body Mass 2021-01-14 00:00:00 36.1 kg/m2 [facility]) [facility] s BP Systolic 2021-01-14 00:00:00 142 mm[Hg] [facility] s Body Weight 2021-01-14 00:00:00 4144 [oz_av] [facility] s BP Diastolic 2020-12-18 00:00:00 92 mm[Hg] [facility] s Height 2020-12-18 00:00:00 71 [in_i] [facility] s BMI (Body Mass 2020-12-18 00:00:00 33.5 kg/m2 [facility] s BP Systolic 2020-12-18 00:00:00 132 mm[Hg] [facility] s Body Weight 2020-12-18 00:00:00 3840 [oz_av] [facility] s Procedures Procedure Date / Time Performed Performing Clinician Daniel e [id number] 2020-12-09 00:00:00 TOM [facility] [id number] 2020-12-09 00:00:00 TOM [facility] Plan of Care Planned Activity Planned Date Details Comments Source Diagnostic Test 2021-08-06 CMP, serum or Midnight Comm unity Pending 00:00:00 plasma [code = Hospital Clin ics CMP, serum or plasma] Encounters Start End Encounter Admission Attending Care Care Encounter Source Date/Time Date/Time Type Type Clinicians Facility Department ID 2021-08-06 2021-08-06 Outpatient NATALIE_Shantal [facility] [id number] Midnight 12:57:00 12:57:00 0215 Commun i ty Hospita l [facility] 2021-08-06 2021-08-06 Burke [place] - Midnight Midnight 00:00:00 [facility]:00[facility] [address] Hospit a [facility] l [address], HOSPITAL Clinic s [facility], [address] NATALIE , Ph. 2021-08-06 2021-08-06 Outpatient Natalie [facility] [id number] 00:00:00 00:00:00 Burke norton-jitendra Gonzalez [id number] 2021-08-06 Outpatient Natalie [facility] [id number] 00:00:00 00:00:00 Burke Gonzalez [id number] 2021-08-01 2021-08-01 Outpatient RADHA [facility] [id number] Midnight 02:15:00 02:15:00 0210 Commun i ty Hospita l Clinics 2021-07-18 2021-07-18 Outpatient ERICKSON_R [facility] [id number] Midnight 06:10:00 06:10:00 0127 Commun i ty Hospita l Clinics 2021-07-18 2021-07-18 Burke [place] - Midnight Midnight 00:00:00 00:00:00 [facility] DO: [address] Hospit a [facility], HOSPITAL [place], [place] CLINIC, [address] NATALIE , Ph. [phone] 2021-07-18 2021-07-18 Outpatient Natalie [facility] [id number] 00:00:00 00:00:00 Burke [id number] Carlos [id number] 2021-06-20 2021-06-20 Outpatient ERICKSON_R [facility] [id number] Midnight 02:55:00 02:55:00 1230 Commun i ty Hospita l Clinics 2021-06-20 2021-06-20 Outpatient Natalie [facility] [id number] 00:00:00 00:00:00 Burke [id number] [id number] 2021-06-20 2021-06-20 Burke [place] - Midnight [id number] Midnight 00:00:00 00:00:00 [facility] DO: [address] Hospit a [facility], [facility] [place], [place] CLINIC, [address] NATLAIE , Ph. 2021-06-14 2021-06-14 Outpatient ERICKSON_R [facility] [id number] Midnight 02:14:00 02:14:00 1224 Commun i ty Hospita l Clinics 2021-06-10 2021-06-10 Outpatient ERICKSON_R [facility] [id number] Midnight 02:04:00 02:04:00 1220 Commun i ty Hospita l Clinics 2021-04-09 2021-04-09 Outpatient ERICKSON_R [facility] [id number] Midnight 05:20:00 05:20:00 1019 Commun i ty Hospita l Clinics 2021-04-09 2021-04-09 Outpatient Natalie [facility] [id number] 00:00:00 00:00:00 Burke [id number] Carlos [id number] 2021-04-09 2021-04-09 Burke [place] - Midnight Midnight 00:00:00 00:00:00 [facility] DO: [address] Hospit a [facility], H[facility] [place], [place] CLINIC, [address] NATALIE , Ph. 2021-01-14 2021-01-14 Outpatient ERICKSON_R [place] [id number] Midnight 06:19:00 06:19:00 0726 Commun i ty Hospita l Clinics 2021-01-14 2021-01-14 Outpatient Natalie [facility] [id number] 00:00:00 00:00:00 Burke [id number] Carlos [id number] 2021-01-14 2021-01-14 Burke [place] - Midnight Midnight 00:00:00 00:00:00 [facility] DO: [address] Hospit a [facility], HOS[facility] [place], [place] CLINIC, [address] NATALIE , Ph. [phone] 2020-12-18 2020-12-18 Outpatient ERICKSON_R [facility] [id number] Midnight 04:24:00 04:24:00 0629 Commun i ty Hospita l Clinics 2020-12-18 2020-12-18 Outpatient Natalie [facility] [id number] 00:00:00 00:00:00 Burke [id number] Carlos [id number] 2020-12-18 2020-12-18 Burke [place] - Midnight Midnight 00:00:00 00:00:00 Carlos [facility] DO: [address] Hospit a [facility] [address], HOSPITAL Clinic s [place], [place] CLINIC, [address] NATALIE , Ph. [phone] 2020-12-09 2020-12-17 Inpatient MARCO Gonzales INTE [id number] [facility] 00:30:00 12:14:00 Basil Ellison [facility] 2020-12-11 2020-12-11 Outpatient Ilkenya, HCACL LABO [id number] [facility] 07:14:00 07:14:00 Rosaura 15 [facility] Results Test Description Test Time Test Comments Results Result [facility] e Comments - XR CHEST 1 V 2020-12-17 08:47:00 [facility])Name: BERKLEY SAMS : 1985 Sex: M FAX: Crissy Jolly NP [place]: B St: ADM FAX: Basil [place] Name: BERKLEY SAMS [facility] : 1985 Age/S: 35/M Kim Guillen Unit #: [id number] Loc: V.4024 [place] [address] Phys: Crissy Jolly NP Acct: [id number] Dis Date: Status: ADM IN PHONE #: [phone] Exam Date: 12/17/2020 0750 FAX #: [phone] Reason: Acute Respiratory Failure EXAMS: CPT CODE: [id number] XR CHEST 1 V [id number] REASON FOR EXAM: Acute Respiratory Failure Exam [...] lower lobe airspace disease. Otherwise unchanged. Location: [facility] at 0847 Reported and signed by: Jeronimo Geller M.D. CC: Crissy Jolly NP; Basil Elizalde MD Technologist: AMBER De La Rosa) Trnscrd Date/Time/By: 12/17/2020 (0847) : By: [email or web address] [facility] Print D/T: S: 12/17/2020 (1014) PAGE 1 Signed Report POC CALCIUM IONIZED 2020-12-17 04:27:00 Test Item Value Reference Range Interpretation Comme nts POC CALCIUM IONIZED (test code = CAIP) 1.19 mmol/L 1.12-1.32 N COMPREHENSIVE METABOLIC [id number] 03:48:00 Test Item Value Reference Range Interpretation [...] >3 months. [Automated mess age] The system [employer] generated this result transmit dimitri reference range [...] range due ALKP) to change in reagent. [id number] 03:48:00 Test Item Value Reference Range Interpretation Comments PHOSPHORUS (test code = PHOS) 4.5 mg/dL 2.5-4.9 N [id number] 03:48:00 Test Item Value Reference Range Interpretation Comments MAGNESIUM (test code = MAG) 2.0 mg/dL 1.8-2.4 N CBC W/AUTO [id number] 03:26:00 Test Item Value Reference Range Interpretation [...] REQUIRED NO (test code = MDIFF) PROTHROMBIN [id number] 03:21:00 Test Item Value Reference Range Interpretation [...] PATIENT ON ANTICOAGULANTS? YLIST ANTICOAGULANTS HEPARINTHROMBOPLASTIN TIME [id number] 03:21:00 Test Item Value Reference Range Interpretation Comments THROMBOPLASTIN TIME PARTIAL 44.3 seconds 23.0-37.0 H (test code = PTT) IS PATIENT ON ANTICOAGULANTS? YLIST ANTICOAGULANTS HEPARINTHROMBOPLASTIN TIME [id number] 15:30:00 Test Item Value Reference Range Interpretation Comments THROMBOPLASTIN TIME PARTIAL 39.5 seconds 23.0-37.0 H (test code = PTT) IS PATIENT ON ANTICOAGULANTS? YLIST ANTICOAGULANTS HEPARIN- XR CHEST 1 V 2020-12-16 08:44:00 [facility])Name: BERKLEY SAMS : 1985 Sex: M FAX: Crissy Jolly NP [place]: St: ADM FAX: aBsil Mitchell Name: BERKLEY SAMS [facility] : 1985 Age/S: 35/M [address] [facility] Unit #: [id number] Loc: V.4024 [place] [address] Phys: Crissy Jolly NP Acct: [id number] Dis Date: Status: ADM IN PHONE #: [phone] Exam Date: FAX #: [phone] Reason: Acute Respiratory Failure EXAMS: CPT CODE: [id number] XR CHEST 1 V [id number] REASON FOR EXAM: Acute Respiratory Failure Exam Order Date: 12/16/2020 2:00 AM Ordering Evie: Crissy Jolly NP PROCEDURE: - XR CHEST 1 V COMPARISON: Chest x-ray the previous morning FINDINGS: The lungs are clear. There is no pleural effusion or pneumothorax. Pulmonary vascularity is within normallimits. Cardiomediastinal silhouette is normal in size for technique. The mediastinal contours are within normal limits. Musculoskeletal structures are within normal limits. The visualized upper abdomen is within normal limits. IMPRESSION: No acute cardiopulmonary process. Location: [facility] at 0844 Reported and signed by: Rene Boggs MD CC: Crissy Jolly NP; Basil Elizalde MD Technologist: RT JORGE(Shantal) Trnncrd Date/Time/By: 12/16/2020(4629) : By: [email or web address] Orig Print D/T: S: 12/16/2020 (1524) PAGE 1 Signed Report THROMBOPLASTIN TIME [id number] 06:52:00 Test Item Value Reference Range Interpretation Comments THROMBOPLASTIN TIME PARTIAL 81.0 seconds 23.0-37.0 H (test code = PTT) IS PATIENT ON ANTICOAGULANTS? YLIST ANTICOAGULANTS HEPARINCOMMENTS TO MACHINE HEEL SPRAYER: PLEASE DRAW LAB FROM LEFT HAND/ARM.PROTHROMBIN [id number] 06:52:00 Test Item Value Reference Range Interpretation [...] (2.5-3.5) IS PATIENT ON ANTICOAGULANTS? NCOMPREHENSIVE METABOLIC [id number] 01:35:00 Test Item Value Reference Range Interpretation [...] >3 months. [Automated mess age] The system [employer] generated this result transmit dimitri reference range [...] range due ALKP) to change in reagent. [id number] 01:35:00 Test Item Value Reference Range Interpretation Comments PHOSPHORUS (test code = PHOS) 4.0 mg/dL 2.5-4.9 N [id number] 01:35:00 Test Item Value Reference Range Interpretation Comments MAGNESIUM (test code = MAG) 1.6 mg/dL 1.8-2.4 L POC CALCIUM [id number] 01:13:00 Test Item Value Reference Range Interpretation Comments POC CALCIUM IONIZED (test code = 1.17 mmol/L 1.12-1.32 N CAIP) THROMBOPLASTIN TIME [id number] 01:08:00 Test Item Value Reference Range Interpretation [...] (test code NO = MDIFF) THROMBOPLASTIN TIME [id number] 19:01:00 Test Item Value Reference Range Interpretation Comments THROMBOPLASTIN TIME PARTIAL 55.2 seconds 23.0-37.0 H (test code = PTT) IS PATIENT ON ANTICOAGULANTS? YLIST ANTICOAGULANTS HEPARINTHROMBOPLASTIN TIME [id number] 10:47:00 Test Item Value Reference Range Interpretation Comments THROMBOPLASTIN TIME 91.6 seconds 23.0-37.0 HH Results called to PARTIAL (test code = [id number] by PTT) V.LAB.JQ 1047Critical results verifie d and read back b y Nurse? Y IS PATIENT ON ANTICOAGULANTS? YLIST ANTICOAGULANTS HEPARIN- XR CHEST 1 V 2020-12-15 08:09:00 [facility]Name: BERKLEY SAMS : 1985 Sex: M FAX: Crissy Jolly NP [place]: B St: ADM FAX: Mónica Poe MD Name: BERKLEY SAMS [facility] : 1985 Age/S: 35/M [address] [facility] Unit #: [id number] Loc: V.4024 [place] [address] Phys: Crissy Jolly NP Acct: [id number] Dis Date: Status: ADM IN PHONE #: [phone] Exam Date: 12/15/2020737 FAX #: [phone] Reason: Acute Respiratory Failure EXAMS: CPT CODE: [id number] XR CHEST 1 V 93234 REASON FOR EXAM: Acute Respiratory Failure Exam Order Date: 12/15/2020 2:00 AM Ordering M.DKyaw: Crissy Jolly NP PROCEDURE: - XR CHEST 1 V COMPARISON: Chest x-ray the previous morning FINDINGS: The lungs are clear other than mild subsegmental atelectasis in the lung bases. There is no pleural effusionor pneumothorax. Pulmonary vascularity is within normal limits. Cardiomediastinal silhouette is normal in size for technique. The mediastinal contours are within normal limits. Musculoskeletal structures are within normal limits. The visualized upper abdomen is within normal limits. IMPRESSION: No acute cardiopulmonary process. Location: [facility] [id number] Reported and signed by: Rene Boggs MD CC: Crissy Jolly IRON LAUNDER OPERATOR; Mónica Cantu MD Technologist: Julienne Duvall(R) Trnscrd Date/Time/By: 12/15/2020 (808) : By: [email or web address] Orig Print D/T: S: 12/15/2020 (8321) PAGE 1 Signed ReportPOC CALCIUM [id number] 05:36:00 Test Item Value Reference Range Interpretation Comments POC CALCIUM IONIZED (test code = 1.21 mmol/L 1.12-1.32 N CAIP) COMPREHENSIVE METABOLIC [id number] 04:31:00 Test Item Value Reference Range Interpretation [...] >3 months. [Automated mess age] The system [employer] generated this result transmit dimitri reference range [...] ALKP) to change in reagent. INFORMED NURSE [id number] 12/15/20 [id number] 04:31:00 Test Item Value Reference Range Interpretation Comments PHOSPHORUS (test code = PHOS) 3.3 mg/dL 2.5-4.9 N INFORMED NURSE DAZ2897 [id number] 12/15/20 [id number] 04:31:00 Test Item Value Reference Range Interpretation Comments MAGNESIUM (test code = MAG) 1.5 mg/dL 1.8-2.4 L INFORMED NURSE [id number] [id number] 12/15/20 0222THROMBOPLASTIN TIME PARTIAL 2020-12-15 04:07:00 Test Item Value Reference Range Interpretation Comments THROMBOPLASTIN TIME 86.3 seconds 23.0-37.0 HH Results called to PARTIAL (test code = VTD9727 by PTT) V.LAB.GP 0407Critical results verifie d and read back b y Nurse? Y HS INFORMED NURSE [id number] [id number] 12/15/20 0224NOTIFIED RN [id number] PATIENT ON ANTICOAGULANTS? YLIST ANTICOAGULANTS HEPARINPROTHROMBIN [id number] 03:58:00 Test Item Value Reference Range Interpretation [...] pros thetic heart valves (2.5-3.5) INFORMED NURSE [id number] 12/15/20 0223IS PATIENT ON ANTICOAGULANTS? NCBC W/AUTO [id number] 03:58:00 Test Item Value Reference Range Interpretation [...] NO (test code = MDIFF) INFORMED NURSE GBS3716 [id number] 12/15/20 0224THROMBOPLASTIN TIME PARTIAL 2020-12-14 17:57:00 Test Item Value Reference Range Interpretation Comments THROMBOPLASTIN TIME 85.3 seconds 23.0-37.0 HH Results called to PARTIAL (test code = ZDQ6208 by PTT) V.LAB.LT 1757Critical results verifie d [...] ism treatment (2.0-3.0)Venous thrombosis treatmentVenous thrombosis prophylaxis ([facility] risk surgery)Prevent ion of systemic emboli [...] treatment (2.0-3.0)Venous thrombosis treatmentVenous thrombosis prophylaxis ([place] risk surgery)Prevent ion of systemic emboli sm from: Acute myocardial infa rction Valvular heart disease Atrial fibrillation Mechanical pros thetic heart valves (2.5-3.5) IS PATIENT ON ANTICOAGULANTS? YLIST ANTICOAGULANTS COUMADINTHROMBOPLASTIN TIME [id number] 09:58:00 Test Item Value Reference Range Interpretation Comments THROMBOPLASTIN TIME PARTIAL 58.8 seconds 23.0-37.0 H (test code = PTT) IS PATIENT ON ANTICOAGULANTS? YLIST ANTICOAGULANTS HEPARIN- XR CHEST 1 V 2020-12-14 05:52:00 [facility]UD[facility] : 1985 Sex: M FAX: Mónica Poe MD [place]: B St: ADM FAX: Tyesha Brooks NP Name: ALECBERKLEY OSBORNE KLAUDIA [facility] :1985 Age/S: 35/M [facility] Unit #: [id number] Loc: V.4024 [facility] [place] [address] Phys: Tyesha Brooks NP Acct: [id number] Dis Date: Status: ADM IN PHONE #: [phone] Exam Date: 12/14/2020506 FAX #: [phone] Reason: Intubated EXAMS: CPT CODE: [id number] XR CHEST 1 V 50072 EXAMINATION: - XR CHEST 1 V LOCATION: 1 INDICATION/CLINICAL HISTORY: Intubated COMPARISON: Chest x-ray 12/13/2020 TECHNIQUE: AP view of the chest. FINDINGS: Cardiac silhouette is normal in size. Unchanged mild patchy bibasilar opacities. No new airspace disease. No appreciable pneumothorax or pleural effusions. Osseous structures are unchanged. IMPRESSION: No significant interval change. at 0552 Reported and signed by: Lindsay Gray M.D. CC: Mónica Cantu MD; Tyesha Brooks NP Technologist: ROXANNE MCCORMICK JR RT(R) Trnscrd Date/Time/By: 12/14/2020 (0552) : By: [email or web address] Orig Print D/T: S: 12/14/2020 (0528) PAGE 1 Signed ReportBASIC METABOLIC [id number] 02:28:00 Test Item Value Reference Range Interpretation [...] >3 months. [Automated mess age] The system [employer] generated this result transmitted ref erence range: >=60. Th e reference range was not used to int erpret this result as normal/abnormal . CREATININE (test 0.80 mg/dL 0.7-1.3 N code = CREAT) BUN/CREATININE RATIO 12.2 10-20 N (test code = BUN/CREA) CALCIUM (test code = 8.9 mg/dL 8.5-10.1 N CA) [id number] 02:28:00 Test Item Value Reference Range Interpretation Comments PHOSPHORUS (test code = PHOS) 1.7 mg/dL 2.5-4.9 L [id number] 02:28:00 Test Item Value Reference Range Interpretation Comments MAGNESIUM (test code = MAG) 1.5 mg/dL 1.8-2.4 L POC CALCIUM [id number] 02:21:00 Test Item Value Reference Range Interpretation Comments POC CALCIUM IONIZED (test code = 1.04 mmol/L 1.12-1.32 L CAIP) THROMBOPLASTIN TIME [id number] 02:11:00 Test Item Value Reference Range Interpretation [...] (test code NO = MDIFF) BASIC METABOLIC [id number] 18:38:00 Test Item Value Reference Range Interpretation [...] >3 months. [Automated mess age] The system [employer] generated this result transmitted ref erence range: >=60. Th e reference range was not used to int erpret this result as normal/abnormal . CREATININE (test 0.60 mg/dL 0.7-1.3 L code = CREAT) BUN/CREATININE RATIO 14.3 10-20 N (test code = BUN/CREA) CALCIUM (test code = 9.1 mg/dL 8.5-10.1 N CA) THROMBOPLASTIN TIME [id number] 18:30:00 Test Item Value Reference Range Interpretation Comments THROMBOPLASTIN TIME PARTIAL 31.6 seconds 23.0-37.0 N (test code = PTT) IS PATIENT ON ANTICOAGULANTS? YLIST ANTICOAGULANTS HEPARIN COUMADINPROTHROMBIN [id number] 11:32:00 Test Item Value Reference Range Interpretation [...] PATIENT ON ANTICOAGULANTS? YLIST ANTICOAGULANTS COUMADINTHROMBOPLASTIN TIME [id number] 11:32:00 Test Item Value Reference Range Interpretation Comments THROMBOPLASTIN TIME PARTIAL 28.9 seconds 23.0-37.0 N (test code = PTT) IS PATIENT ON ANTICOAGULANTS? YLIST ANTICOAGULANTS COUMADINPOC CALCIUM IONIZED 2020-12-13 06:42:00 Test Item Value Reference Range Interpretation Comments POC CALCIUM IONIZED (test code = 1.11 mmol/L 1.12-1.32 L CAIP) BASIC METABOLIC [id number] 05:57:00 Test Item Value Reference Range Interpretation [...] >3 months. [Automated mess age] The system [employer] generated this result transmitted ref erence range: >=60. Th e reference range was not used to int erpret this result as normal/abnormal . CREATININE (test 0.70 mg/dL 0.7-1.3 N code = CREAT) BUN/CREATININE RATIO 11.4 10-20 N (test code = BUN/CREA) CALCIUM (test code = 8.8 mg/dL 8.5-10.1 N CA) [id number] 05:57:00 Test Item Value Reference Range Interpretation Comments PHOSPHORUS (test code = PHOS) 3.1 mg/dL 2.5-4.9 N [id number] 05:57:00 Test Item Value Reference Range Interpretation Comments MAGNESIUM (test code = MAG) 1.7 mg/dL 1.8-2.4 L PROTHROMBIN [id number] 05:31:00 Test Item Value Reference Range Interpretation [...] NO = MDIFF) - XR CHEST 1 [id number] 02:12:00 [facility]Name: BERKLEY SAMS KLAUDIA : 1985 Sex: M FAX: Mónica Poe MD [place]: B St: ADM FAX: Tyesha Brooks IRON LAUNDER OPERATOR Name: BERKLEY SAMS [facility] :1985 Age/S: 35/M [address] [facility] Unit #: [id number] Loc: V.S18 [place] [address] Phys: Tyesha Brooks IRON LAUNDER OPERATOR Acct: [id number] Dis Date: Status: ADM IN PHONE #: [phone] Exam Date: 12/13/2020 0145 FAX #: [phone] Reason: Intubated EXAMS: CPT CODE: [id number] XR CHEST 1 V 83919 LOCATION: Q15 HISTORY: 35-year-old male who presents with an [...] Cantu MD; Tyesha Brooks NP Technologist: Pia Sheehan Date/Time/By: 12/13/2020 (211) : By: [email or web address] Orig Print D/T: S: 12/13/2020 (214) PAGE 1Signed ReportTHROMBOPLASTIN TIME [id number] 22:27:00 Test Item Value Reference Range Interpretation [...] PATIENT ON ANTICOAGULANTS? YLIST ANTICOAGULANTS HEPARINTHROMBOPLASTIN TIME [id number] 13:00:00 Test Item Value Reference Range Interpretation Comments THROMBOPLASTIN TIME PARTIAL 36.1 seconds 23.0-37.0 N (test code = PTT) IS PATIENT ON ANTICOAGULANTS? YLIST ANTICOAGULANTS HEPARIN- XR CHEST 1 V 2020-12-12 07:44:00 [facility])Name: BERKLEY SAMS : 1985 Sex: M FAX: Rosaura Tidwell [place]: B St: ADM FAX: Tyesha Brooks IRON LAUNDER OPERATOR Name: BERKLEY SAMS [facility] : 1985 Age/S: 35/M [address] [facility] Unit #: [id number] Loc: V.S18 [place] [address] Phys: Tyesha Willis NP Acct: [id number] Dis Date: Status: ADM IN PHONE #: [phone] Exam Date: 12/12/2020 0405 FAX #: [phone] Reason: Intubated EXAMS: CPT CODE: [id number] XR CHEST 1 V 52945 REASON FOR EXAM: Intubated Exam Order Date: 12/12/2020 2:00 AM Ordering M.Daniel: Tyesha Brooks NP PROCEDURE: -XR CHEST 1 V COMPARISON: Chest x-ray the previous morning FINDINGS/ IMPRESSION: Lines and tubes are unchanged from the previous exam. Lung volumes are diminished and there are opacities in the lung bases which may represent any combination of atelectasis and consolidation. These findings appear similar to the previous exam. Heart is enlarged but stable in size. No acute skeletal findings. Location: [facility] at 0744 Reported and signed by: Rene Boggs MD CC: Rosaura Tidwell MD; Tyesha Brooks NP Technologist: Pia Herrera Trnscrd Date/Time/By: 12/12/2020 (2960) : By: [email or web address] Orig Print D/T: S: 12/12/2020 (8503) PAGE 1 Signed ReportBASIC METABOLIC [id number] 06:42:00 Test Item Value Reference Range Interpretation [...] >3 months. [Automated mess age] The system [employer] generated this result transmitted ref erence range: >=60. Th e reference range was not used to int erpret this result as normal/abnormal . CREATININE (test 1.00 mg/dL 0.7-1.3 N code = CREAT) BUN/CREATININE RATIO 14.7 10-20 N (test code = BUN/CREA) CALCIUM (test code = 8.5 mg/dL 8.5-10.1 N CA) [id number] 06:42:00 Test Item Value Reference Range Interpretation Comments PHOSPHORUS (test code = PHOS) 2.9 mg/dL 2.5-4.9 N [id number] 06:42:00 Test Item Value Reference Range Interpretation Comments MAGNESIUM (test code = MAG) 1.9 mg/dL 1.8-2.4 N POC CALCIUM [id number] 06:40:00 Test Item Value Reference Range Interpretation Comments POC CALCIUM IONIZED (test code = 1.20 mmol/L 1.12-1.32 N CAIP) THROMBOPLASTIN TIME [id number] 06:17:00 Test Item Value Reference Range Interpretation [...] (test code NO = MDIFF) ARTERIAL BLOOD [id number] 03:53:00 Test Item Value Reference Range Interpretation [...] = 17.6 % vol 18.0-22.0 L O2CT) PaO2/[id number] 03:53:00 Test Item Value Reference Range Interpretation Comments PaO2/FiO2 (test code = SWU7ZSS3) mm/Hg ARTERIAL BLOOD [id number] 03:53:00 Test Item Value Reference Range Interpretation [...] by casey 03:53 - 12/12/2020; by marce hunter, arminda METHEMOGLOBIN (test code 0.5 % 0.0-1.50 N = METHGB) O2 CONTENT (test code = 17.6 % vol 18.0-22.0 L O2CT) PaO2/[id number] 03:53:00 Test Item Value Reference Range Interpretation Comments PaO2/FiO2 (test code = YZO3NWO3) 205.70 mm/Hg THROMBOPLASTIN TIME [id number] 23:56:00 Test Item Value Reference Range Interpretation Comments THROMBOPLASTIN TIME PARTIAL 63.1 seconds 23.0-37.0 H (test code = PTT) IS PATIENT ON ANTICOAGULANTS? YLIST ANTICOAGULANTS HEPARINTHROMBOPLASTIN TIME [id number] 17:30:00 Test Item Value Reference Range Interpretation [...] = 19.5 % vol 18.0-22.0 N O2CT) PaO2/[id number] 15:26:00 Test Item Value Reference Range Interpretation Comments PaO2/FiO2 (test code = KXK3PQD1) mm/Hg ARTERIAL BLOOD [id number] 15:26:00 Test Item Value Reference Range Interpretation [...] = 19.5 % vol 18.0-22.0 N O2CT) PaO2/[id number] 15:26:00 Test Item Value Reference Range Interpretation Comments PaO2/FiO2 (test code = QZV7AFJ3) 210.60 mm/Hg THROMBOPLASTIN TIME [id number] 10:39:00 Test Item Value Reference Range Interpretation Comments THROMBOPLASTIN TIME PARTIAL 74.4 seconds 23.0-37.0 H (test code = PTT) IS PATIENT ON ANTICOAGULANTS? YLIST ANTICOAGULANTS HEPARINTHROMBOPLASTIN TIME [id number] 08:44:00 Test Item Value Reference Range Interpretation Comments THROMBOPLASTIN TIME 240.1 seconds 23.0-37.0 HH Results called to PARTIAL (test code = NVD3029 by PTT) V.LAB.JQ 0842Critical results verifie d and read back b y Nurse? Y IS PATIENT ON ANTICOAGULANTS? YLIST ANTICOAGULANTS [id number] 08:15:00 Test Item Value Reference Range Interpretation Comments GLUBED (test code = 90 mg/dL 74-106 N Performe d by certified GLUBED) selvage machine operator at [facility] BASIC METABOLIC [id number] 07:16:00 Test Item Value Reference Range Interpretation [...] >3 months. [Automated mess age] The system [employer] generated this result transmitted ref erence range: >=60. Th e reference range was not used to int erpret this result as normal/abnormal . CREATININE (test 1.20 mg/dL 0.7-1.3 N code = CREAT) BUN/CREATININE RATIO 13.8 10-20 N (test code = BUN/CREA) CALCIUM (test code = 8.0 mg/dL 8.5-10.1 L CA) [id number] 07:16:00 Test Item Value Reference Range Interpretation Comments PHOSPHORUS (test code = PHOS) 4.5 mg/dL 2.5-4.9 N [id number] 07:16:00 Test Item Value Reference Range Interpretation Comments MAGNESIUM (test code = MAG) 2.2 mg/dL 1.8-2.4 N POC CALCIUM [id number] 07:06:00 Test Item Value Reference Range Interpretation Comments POC CALCIUM IONIZED (test code = 1.00 mmol/L 1.12-1.32 L CAIP) ARTERIAL BLOOD [id number] 06:35:00 Test Item Value Reference Range Interpretation [...] HOWARD) to and read back by mile - 12/11/2020; by kristina ABG O2 SATURATION (test [...] = HOHGBT) to and read back by miel - 12/11/2020; by kristina METHEMOGLOBIN (test code 0.4 % 0.0-1.50 N = METHGB) O2 CONTENT (test code = 15.9 % vol 18.0-22.0 L O2CT) PaO2/[id number] 06:35:00 Test Item Value Reference Range Interpretation Comments PaO2/FiO2 (test code = CPC8UEM4) mm/Hg ARTERIAL BLOOD [id number] 06:35:00 Test Item Value Reference Range Interpretation [...] = 15.9 % vol 18.0-22.0 L O2CT) PaO2/[id number] 06:35:00 Test Item Value Reference Range Interpretation Comments PaO2/FiO2 (test code = MIS7QII8) 58.80 mm/Hg - XR CHEST 1 [id number] 06:28:00 [facility] ([facility])Name: BERKLEY SAMS : 1985 Sex: M FAX: Rosaura Tidwell [place]: B St: [facility] FAX: Tyesha Brooks NP Name: BERKLEY SAMS KLAUDIA [facility] : 1985 Age/S: 35/M [address] [facility] Unit #: [id number] Loc: [facility] [place] [address] Phys: Tyesha Neely IRON LAUNDER OPERATOR Acct: [id number] Dis Date: Status: ADM IN PHONE #: [phone] Exam Date: 12/11/2020530 FAX #: [phone] Reason: Intubated EXAMS: CPT CODE: [id number] XR CHEST 1 V 98086 EXAMINATION: - XR CHEST 1 V LOCATION: H61 INDICATION/CLINICAL HISTORY: Intubated COMPARISON: Chest x-ray chest x-ray 12/10/2020 TECHNIQUE: AP view of the chest. FINDINGS: Endotracheal tube and enteric catheter are stable. Increase dense left basilar opacity which [...] RT(R) Trnscrd Date/Time/By: 12/11/2020 (627) : By: [email or web address] Orig Print D/T: S: 12/11/2020 (31) PAGE 1 Signed ReportCBC W/AUTO [id number] 05:56:00 Test Item Value Reference Range Interpretation [...] (test code NO = MDIFF) THROMBOPLASTIN TIME [id number] 02:55:00 Test Item Value Reference Range Interpretation [...] PO2A) to and re ad back by [employer] 18:55 - 12/10/2020; by OMA BICARBONATE TOTAL [...] = 17.9 % vol 18.0-22.0 L O2CT) PaO2/[id number] 18:55:00 Test Item Value Reference Range Interpretation Comments PaO2/FiO2 (test code = RDU6GDN0) mm/Hg ARTERIAL BLOOD [id number] 18:55:00 Test Item Value Reference Range Interpretation Comments ARTERIAL BLOOD GAS PH 7.34 7.35-7.45 L (test code = PHA) ARTERIAL BLOOD GAS PCO2 46.7 mm Hg 35-45 H (test code = PCO2A) ARTERIAL BLOOD GAS PO2 48.6 mmHg 80-100 LL Resul ts called (test code = PO2A) to and re ad back by [employer] 18:55 - 12/10/2020; by OMA BICARBONATE TOTAL [...] = 17.9 % vol 18.0-22.0 L O2CT) PaO2/[id number] 18:55:00 Test Item Value Reference Range Interpretation Comments PaO2/FiO2 (test code = UMU9RRG7) 97.20 mm/Hg THROMBOPLASTIN TIME [id number] 11:18:00 Test Item Value Reference Range Interpretation Comments THROMBOPLASTIN TIME 189.2 seconds 23.0-37.0 Results called to PARTIAL (test code = DID3963 by PTT) BeverlyBK11 12/10/20 1118Critical results verifie d and read back b y Nurse? Y IS PATIENT ON ANTICOAGULANTS? YLIST ANTICOAGULANTS HEPARIN- XR CHEST 1 V 2020-12-10 07:33:00 [facility])Name: BERKLEY SAMS : 1985 Sex: M FAX: Rosaura Tidwell [place]: B St: ADM FAX: Tyesha Brooks IRON LAUNDER OPERATOR Name: BERKLEY SAMS [facility] : 1985 Age/S: 35/M [address] [facility] Unit #: [id number] Loc: [address] [address] Phys: Tyesha Chavez NP Acct: [id number] Dis Date: Status: ADM IN PHONE #: [phone] Exam Date: 12/10/2020 0635 FAX #: [phone] Reason: Intubated EXAMS: CPT CODE: [id number] XR CHEST 1 V 83857 REASONFOR EXAM: Intubated Exam Order Date: 12/10/2020 2:00 AM Ordering M.D.: Tyesha Brooks NP PROCEDURE:- XR CHEST 1 V COMPARISON: Chest x-ray the previous morning FINDINGS/ IMPRESSION: Lines and tubes are unchanged from the previous exam. The previously seen opacity in the right lung base has improved however there is slightly increased opacity in the left midlung. These opacities may represent any combination of pneumonia and atelectasis. Heart appears prominent but stable in size. Skeletal structures are within normal limits. Location: [facility] at 0733 Reported and signed by: Rene Boggs MD CC: Rosaura Tidwell MD; Tyesha Brooks NP Technologist: CORTEZ BURNS, RT(R); Julienne Duvall(R) Trnscrd Date/Time/By: 12/10/2020 (0733) : By: [email or web address] Orig Print D/T: S: 12/10/2020 (0787) PAGE 1 Signed ReportGLUBED 2020-12-10 07:20:00 Test Item Value Reference Range Interpretation Comments GLUBED (test code = 192 mg/dL 74-106 H Performe d by certified GLUBED) selvage machine operator at [facility] POC CALCIUM [id number] 05:49:00 Test Item Value Reference Range Interpretation Comments POC CALCIUM IONIZED (test code = 1.24 mmol/L 1.12-1.32 N CAIP) ARTERIAL BLOOD [id number] 03:48:00 Test Item Value Reference Range Interpretation [...] HOHGBT) to and read back by Dedra - 12/10/2020; by JOSE METHEMOGLOBIN (test code 0.2 % 0.0-1.50 N = METHGB) O2 CONTENT (test code = 18.4 % vol 18.0-22.0 N O2CT) PaO2/[id number] 03:48:00 Test Item Value Reference Range Interpretation Comments PaO2/FiO2 (test code = GMX7IHQ9) 163.80 mm/Hg ARTERIAL BLOOD [id number] 03:47:00 Test Item Value Reference Range Interpretation [...] HOHGBT) to and read back by Dedra - 12/10/2020; by JOSE METHEMOGLOBIN (test code 0.2 % 0.0-1.50 N = METHGB) O2 CONTENT (test code = 18.4 % vol 18.0-22.0 N O2CT) PaO2/[id number] 03:47:00 Test Item Value Reference Range Interpretation Comments PaO2/FiO2 (test code = KER2MDG6) mm/Hg URINALYSIS [id number] 03:36:00 Test Item Value Reference Range Interpretation [...] MUCU) SPECIMEN COMMENTS: STERILEUrine Source? CatheterBASIC METABOLIC [id number] 03:35:00 Test Item Value Reference Range Interpretation [...] Modifi ed MDRD (test code = GFR) formula.[facility] kidney disease is defined as eith er kidney damageor GFR <60 mL/min/1.73 m2 for >3 months. [Automated mess age] The system [employer] generated this result transmitted ref erence range: >=60. Th e reference range was not used to int erpret this result as normal/abnormal . CREATININE (test 0.80 mg/dL 0.7-1.3 N code = CREAT) BUN/CREATININE RATIO 11.9 10-20 N (test code = BUN/CREA) CALCIUM (test code = 8.7 mg/dL 8.5-10.1 N CA) [id number] 03:35:00 Test Item Value Reference Range Interpretation Comments PHOSPHORUS (test code = PHOS) 2.5 mg/dL 2.5-4.9 N [id number] 03:35:00 Test Item Value Reference Range Interpretation Comments MAGNESIUM (test code = MAG) 1.9 mg/dL 1.8-2.4 N CBC W/AUTO [id number] 03:17:00 Test Item Value Reference Range Interpretation [...] NO (test code = MDIFF) THROMBOPLASTIN TIME [id number] 03:17:00 Test Item Value Reference Range Interpretation Comments THROMBOPLASTIN TIME PARTIAL 34.1 seconds 23.0-37.0 N (test code = PTT) IS PATIENT ON ANTICOAGULANTS? YLIST ANTICOAGULANTS LOVENOX- CTA [id number] 23:28:00[facility] 1985 Sex: M Name: BERKLEY SAMS [facility] : 1985 Age/S: 35 / M [address] Unit #: [id number] Loc: [place] [address] Phys: Haydee Garvin MD Acct: [id number] Dis Date: Status: ADM IN PHONE #: [phone] Exam Date: 12/09/20202309 FAX #: [phone] Reason: sob/hypoxia EXAMS: CPT CODE: [id number] CTA CHEST 9[address]64 CT chest with contrast (PE protocol) Location code: B2 HISTORY: Shortness of breath. Hypoxia, overdose COMMENT: Multidetector slices through the chest were obtained during contrast administration for evaluation of the pulmonary arteries for pulmonary embolus.Coronal and axial reconstructions were performed and evaluated. MIPS and 3-D reformatted images wererendered. Dose lowering technique with automatic exposure control utilized. ET tube and NG tube arein good position. There is good opacification of the pulmonary arteries with no evidence of filling defect to suggest central or segmental pulmonary embolus. Small filling defect in the right lower lobe subsegmental branch distally noted. The aorta is normal in diameter with no aneurysm or dissection. Tracheobronchial tree is patent without bronchiectasis or endobronchial lesions. There is nonenhancing bibasilar pneumonia with scattered enhancing areas as well. No pneumothorax. The heart and pulmonary vasculature is normal. IMPRESSION: 1. No central or segmental pulmonary embolus. Small subsegmental pulmonary embolus in the right lower lobe branch distally. 2. Bibasilar pneumonia and atelectasis. 3. ET tube and NG tube are in good position. at 2328 Reported and signed by: Josh Quinones M.D. PAGE 1 Signed Report (CONTINUED) Name: BERKLEY SAMS [facility] : 1985 Age/S: 35 / M [facility] Unit #: [id number] Loc: [place] [address] Phys: Haydee Garvin MD Acct: [id number] Dis Date: Status: ADM IN PHONE #: [phone] Exam Date: 12/09/2020 2310 FAX #: [phone] Reason: sob/hypoxia EXAMS: CPT CODE: [id number] CTA CHEST 83285 (Continued) CC: Haydee Garvin MD; Rosaura Tidwell MD Technologist:ELIZABETH GLASER, RT; Jameel Laguerre CTDI: DLP: Trnscb Date/Time: 12/09/2020 (2327) [email or web address] Orig Print D/T: S: 12/09/2020 (0898) PAGE 2 Signed ReportARTERIAL BLOOD [id number] 17:06:00 Test Item Value Reference Range Interpretation [...] Elisabeth 17:06 - 12/09/2020; by Cynthia Lewis [employer] ABG O2 SATURATION (test 93.5 % 90.0-98.0 [...] = 20.1 % vol 18.0-22.0 N O2CT) PaO2/[id number] 17:06:00 Test Item Value Reference Range Interpretation Comments PaO2/FiO2 (test code = [id number]) mm/Hg ARTERIAL BLOOD [id number] 17:06:00 Test Item Value Reference Range Interpretation [...] Elisabeth 17:06 - 12/09/2020; by Cynthia Lewis RRT ABG O2 SATURATION (test 93.5 % 90.0-98.0 [...] = 20.1 % vol 18.0-22.0 N O2CT) PaO2/[id number] 17:06:00 Test Item Value Reference Range Interpretation Comments PaO2/FiO2 (test code = [id number]) 75.60 mm/Hg - CT HEAD/BRAIN W/O [id number] 13:01:00 [facility])Name: BERKLEY SAMS : 1985 Sex: M Name: BERKLEY SAMS [facility] : 1985 Age/S: 35 / M [address] [facility] Unit #: [id number] Loc: [place] [address] Phys: Rain Candelario MD Acct: [id number] Dis Date: Status: ADM IN PHONE #: [phone] Exam Date: 12/09/2020 1259 FAX #: [phone] Reason: ALTERED MENTAL STATUS EXAMS: CPT CODE: [id number] CT HEAD/BRAIN W/O CONT 57071 HISTORY: ALTERED MENTAL STATUS TECHNIQUE: Noncontrast 2.[address] of the head. Examination acquired within 24 hours of arrival. Automated exposure control for dose reduction. COMPARISON: None FINDINGS: No lacerations or contusions ofthe scalp or facial soft tissues. Calvarium and skull base are intact. No acte or chronic infarct. No effacement of the sulci or contreras-white matter interface. No acute hemorrhage. No intracranial mass, mass effect, or midline shift. No cortical atrophy. No signs of white matter small-vessel disease. Nohydrocephalus.. No extra-axial fluid collection. Mild mucosal thickening of the bilateral ethmoid sinuses, nonspecific but could represent. Mastoid air cells and middle ear cavities are clear. Orbital contents are unremarkable. IMPRESSION: No acute intracranial abnormalities. Location: [facility] at 1301 Reported and signed by: Jeronimo Geller M.D. 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 [Automated mess age] The system [employer] generated this result transmitted ref erence range: >=60. Th e reference range was not used to int erpret this result as normal/abnormal . CREATININE (test 1.00 mg/dL 0.7-1.3 N code = CREAT) BUN/CREATININE RATIO 12.5 10-20 N (test code = BUN/CREA) CALCIUM (test code = 8.5 mg/dL 8.5-10.1 N CA) [id number] 06:22:00 Test Item Value Reference Range Interpretation Comments PHOSPHORUS (test code = PHOS) 3.3 mg/dL 2.5-4.9 N [id number] 06:22:00 Test Item Value Reference Range Interpretation Comments MAGNESIUM (test code = MAG) 1.9 mg/dL 1.8-2.4 N [id number] 06:22:00 Test Item Value Reference Range Interpretation Comments TROPONIN-I (test 0.079 ng/mL 0-0.045 HH Results serafin led to code = TROPI) [id number] by Hortencia BUSH 12/09/20 0622Cr itical results verifie d and read back by Amanda whitmoree? Y LACTIC [id number] 06:08:00 Test Item Value Reference Range Interpretation Comments LACTIC ACID (test code = LACT) 1.0 mmol/L 0.4-1.9 N [id number] 06:08:00 Test Item Value Reference Range Interpretation Comments GLYCOSYLATED HEMOGLOBIN 5.3 % HbA1 MEHRDAD VASQUEZ DIAGNOSIS: (HA1C) (test code = HbA1C GLYHGB) (%) ----- ----- Diab etic >6.4Prediabetes 5.7 - 6.4Normal <5. 7 ESTIMATED AVERAGE 105 MG/DL GLUCOSE (test code = EAG) C REACTIVE [id number] 06:08:00 Test Item Value Reference Range Interpretation Comments C REACTIVE PROTEIN (test code = < 0.40 mg/dL 0-0.3 H CRP) POC CALCIUM [id number] 06:07:00 Test Item Value Reference Range Interpretation Comments POC CALCIUM IONIZED (test code = 1.19 mmol/L 1.12-1.32 N CAIP) CBC W/AUTO [id number] 05:39:00 Test Item Value Reference Range Interpretation [...] NO = MDIFF) DRUGS OF ABUSE SCREEN [id number] 04:36:00 Test Item Value Reference Range Interpretation Comments UA PH DIPSTICK (test 6.0 5.0-8.0 code = CORRINE) URN COCAINE (test code = POSITIVE See_Comment [A utomated message] COCAURN) The system [employer] generated this result transmitted ref erence range: [...] See_Comment [A utomated message] OPIATURN) The system [employer] generated this result transmitted ref erence range: [...] [A utomated message] = METHAURN) The system [employer] h generated this result transmitted ref erence range: <300 ng/ mL. The reference r rossy was not used to interpret this result as normal/abnor mal. URINALYSIS [id number] 02:37:00 Test Item Value Reference Range Interpretation [...] code = AMORU) Urine Source? Clean CatchURINALYSIS [id number] 02:37:00 Test Item Value Reference Range Interpretation [...] Urine Source? Clean CatchDRUGS OF ABUSE SCREEN [id number] 02:30:00 Test Item Value Reference Range Interpretation Comments UA PH DIPSTICK (test 5.0-8.0 code = CORRINE) URN COCAINE (test code = POSITIVE See_Comment [A utomated message] COCAURN) The system [employer] h generated this result transmitted ref erence [...] See_Comment [A utomated message] OPIATURN) The system [employer] generated this result transmitted ref erence range: [...] [A utomated message] = METHAURN) The system [employer] generated this result transmitted ref erence range: <300 ng/ mL. The reference r rossy was not used to interpret this result as normal/abnor mal. URINALYSIS [id number] 02:26:00 Test Item Value Reference Range Interpretation [...] NONE BACU) Urine Source? Clean CatchARTERIAL BLOOD [id number] 02:21:00 Test Item Value Reference Range Interpretation [...] = 21.1 % vol 18.0-22.0 N O2CT) PaO2/[id number] 02:21:00 Test Item Value Reference Range Interpretation Comments PaO2/FiO2 (test code = [id number]) mm/Hg ARTERIAL BLOOD [id number] 02:21:00 Test Item Value Reference Range Interpretation [...] = 21.1 % vol 18.0-22.0 N O2CT) PaO2/[id number] 02:21:00 Test Item Value Reference Range Interpretation Comments PaO2/FiO2 (test code = IIO0WKW0) 204.00 mm/Hg B-TYPE NATRIURETIC [id number] 02:21:00 Test Item Value Reference Range Interpretation Comments B-TYPE NATRIURETIC PEPTIDE 32.3 pgram/mL 0-100 N (test code = BNP) BASIC METABOLIC [id number] 02:17:00 Test Item Value Reference Range Interpretation [...] ed MDRD (test code = GFR) formula.Ch ron kidney disease is defined as eith er kidney damageor GFR <60 mL/min/1.73 m2 for >3 months. [Automated mess age] The system [employer] generated this result transmitted ref erence range: >=60. Th e reference range was not used to int erpret this result as normal/abnormal . CREATININE (test 1.10 mg/dL 0.7-1.3 N code = CREAT) BUN/CREATININE RATIO 10.0 10-20 N (test code = BUN/CREA) CALCIUM (test code = 8.5 mg/dL 8.5-10.1 N CA) HEPATIC FUNCTION [id number] 02:17:00 Test Item Value Reference Range Interpretation [...] range due ALKP) to change in reagent. [id number] 02:17:00 Test Item Value Reference Range Interpretation Comments PHOSPHORUS (test code = PHOS) 6.7 mg/dL 2.5-4.9 H [id number] 02:17:00 Test Item Value Reference Range Interpretation Comments LIPASE (test code = LIP) 36 U/L 12-57 N [id number] 02:17:00 Test Item Value Reference Range Interpretation Comments MAGNESIUM (test code = MAG) 2.1 mg/dL 1.8-2.4 N CPK-MB [id number] 02:17:00 Test Item Value Reference Range Interpretation [...] va lid with a normal total CK. [id number] 02:17:00 Test Item Value Reference Range Interpretation Comments TROPONIN-I (test code = TROPI) < 0.006 ng/mL 0-0.045 N [id number] 02:17:00 Test Item Value Reference Range Interpretation [...] ADDITIONAL CHARGE TO THE P ATIENT. LACTIC [id number] 01:42:00 Test Item Value Reference Range Interpretation Comments LACTIC ACID (test 3.8 mmol/L 0.4-1.9 HH Results ca lled to code = LACT) [id number] by MADDY MONROE 12/09/20 0142Cr itical results verifie d and read back by Nu rse? Y CBC W/AUTO [id number] 01:22:00 Test Item Value Reference Range Interpretation [...] REQUIRED (test code NO = MDIFF) PROTHROMBIN [id number] 01:22:00 Test Item Value Reference Range Interpretation [...] (2.5-3.5) IS PATIENT ON ANTICOAGULANTS? NTHROMBOPLASTIN TIME [id number] 01:22:00 Test Item Value Reference Range Interpretation Comments THROMBOPLASTIN TIME PARTIAL 28.4 seconds 23.0-37.0 N (test code = PTT) IS PATIENT ON ANTICOAGULANTS? N- XR CHEST 1 [id number] 01:06:00 [facility] 1985 Sex: M FAX: Rain Candelario MD [place]: St: ADM Name: BERKLEY SAMS [facility] : 1985 Age/S: 35/M [address] [facility] Unit #: [id number] Loc: [place] [address] Phys: Rain Candelario MD Acct: [id number] Dis Date: Status: ADM IN PHONE #: [phone] Exam Date: 12/09/202044 FAX #: [phone] Reason: SHORTNESS OF BREATH EXAMS: CPT CODE: [id number] XR CHEST 1 V 87046 HISTORY: Shortness of breath Location code: B2 FINDINGS: Frontal view of the chest demonstrates normal cardiomediastinal silhouette. The trachea is midline. Patchy opacity right lower lobe. There is no effusion or pneumothorax. The bones are intact. ET tube and NG tube are in good position. IMPRESSION: 1. Right lower lobe pneumonia. 2. ET tube and NG tube are in good position. at 0106 Reported and signed by: Josh Quinones M.D. CC: Rain Candelario MD Technologist: Evelio Canela RT(R) Trnscrd Date/Time/By: 12/09/2020 (0106) : By: [email or web address] Orig Print D/T: S: 12/09/2020 (0 109) PAGE 1 Signed ReportCOVID 19 INHOUSE [id number] 01:00:00 Test Item Value Reference Range Interpretation Comments COVID 19 INHOUSE AG (test code = NEGATIVE NEGATIVE [id number])
[2022-10-22 10:10] LABS: Absolute Lymphocytes (CBC) 1.8 K/uL (0.7-4.9); Hematocrit 45.2 % (39.6-49.0); Lymphocytes % 21.5 % (15.3-44.8); MCV 93.4 fL (80-100); MPV 6.9 fL (7.6-11.3); RBC Red Blood Cell Count 4.84 M/uL (4.33-5.43)
--- NOTE | 2022-10-22 10:15 | RAD REPORT ---
EXAM DESCRIPTION: RAD - Chest Single View - 10/22/2022 10:07 am CLINICAL HISTORY: CHEST PAIN Chest pain. COMPARISON: No comparisons FINDINGS: Portable technique limits examination quality. The lungs are grossly clear. The heart is normal in size. No displaced fractures. IMPRESSION: No acute intrathoracic process suspected.
[2022-10-22 10:33] LABS: Albumin 4.2 g/dL (3.4-5.0); Bilirubin Direct 0.1 mg/dL (0-0.2); Bilirubin Total 0.6 mg/dL (0.2-1.0); Protein, Total 7.6 g/dL (6.4-8.2); Troponin High Sensitivity 4.8 pg/mL (<58.9)
[2022-10-22] MEDS ORDERED: FAMOTIDINE 20 MG/2 ML VIAL IV ONE (11:13)
[2022-10-22] MEDS ORDERED: ONDANSETRON 4 MG/2 ML VIAL ONE (11:13)
[2022-10-22] MEDS ORDERED: NA CHLORIDE 0.9% 1,000 ML ONE (11:13)
--- NOTE | 2022-10-22 13:09 | ER ---
Nurse's Notes [facility] Name: John Peralta Age: 37 yrs Sex: Male : 1985 Arrival Date: 10/22/2022 Time: 09:29 Bed 7 Private MD: Diagnosis: Nausea with vomiting, unspecified;Chest pain, unspecified Presentation: 10/22 09:47 Chief complaint: Patient states: he has been having intermittent chest pain for approx ap3 one week, and nausea and vomiting that began 2-3 days ago. Coronavirus screen: At this time, the client does not indicate any symptoms associated with coronavirus-19. Ebola Screen: No symptoms or risks identified at this time. Initial Sepsis Screen: Does the patient meet any 2 criteria? No. Patient's initial sepsis screen is negative. Does the patient have a suspected source of infection? No. Patient's initial sepsis screen is negative. Risk Assessment: Do you want to hurt yourself or someone else? Patient reports no desire to harm self or others. Onset of symptoms was October 15, 2022. 09:47 Method Of Arrival: Ambulatory ap3 09:47 Acuity: YUKI 2 ap3 Triage Assessment: 09:49 General: Appears in no apparent distress. Behavior is calm, cooperative, appropriate ap3 for age. Pain: Complains of pain in anterior aspect of left upper chest Pain does not radiate. Pain currently is 3 out of 10 on a pain scale. Pain began approx one week ago Is intermittent. Neuro: Level of Consciousness is awake, alert, obeys commands, Oriented to person, place, time, situation, Moves all extremities. Gait is steady. Cardiovascular: Reports chest pain, nausea, vomiting. Respiratory: Airway is patent Respiratory effort is even, unlabored, Respiratory pattern is regular, symmetrical. GI: Reports nausea, vomiting. Historical: - Allergies: 09:48 Sulfa (Sulfonamide Antibiotics); ap3 - Home Meds: 09:48 None [Active]; ap3 - PMHx: 09:48 heart disease; PE; cardiac arrest-2020; ap3 - Immunization history:: Client reports receiving the 1st dose of the Covid vaccine. - Social history:: Smoking status: Patient reports the use of cigarette tobacco products, smokes one pack cigarettes per day. Patient uses alcohol, on a daily basis. claims drinking about a 6 pack/day. Screenin:50 [facility] ED Fall Risk Assessment (Adult) History of falling in the last 3 months, ap3 including since admission No falls in past 3 months (0 pts). Abuse screen: Denies threats or abuse. Nutritional screening: No deficits noted. Tuberculosis screening: No symptoms or risk factors identified. Assessment: 09:50 GI: ap3 13:34 GI: ap3 Vital Signs: 09:47 Pulse 90; Resp 19; Temp 99.1; Pulse Ox 97% ; Weight 109.77 kg; Height 6 ft. 0 in. ; ap3 Pain 3/10; 09:51 BP 147 / 107; ap3 10:11 BP 157 / 102; Pulse 92; Pulse Ox 99% on R/A; ap3 09:47 Body Mass Index 32.82 (109.77 kg, 182.88 cm) ap3 09:47 Pain Scale: Adult ap3 ED Course: 09:32 Patient arrived in ED. ts1 09:40 Mela Oconnor FNP-C [facility]. kb 09:40 Puneet Key MD is Attending Physician. kb 09:41 Rachele Mcmanus RN is Primary Nurse. ap3 09:48 Triage completed. ap3 09:50 Arm band placed on right wrist. ap3 09:50 Patient has correct armband on for positive identification. Placed in gown. Bed in low ap3 position. Call light in reach. Side rails up X 1. satellite project site monitor on. Pulse ox on. NIBP on. Door closed. Noise minimized. Warm blanket given. 10:00 Initial lab(s) drawn, by me, sent to lab. Inserted saline lock: 20 gauge in right ap3 antecubital area, using aseptic technique. Blood collected. 10:09 XRAY Chest (1 view) In Process Unspecified. EDMS 12:39 Troponin High Sensitivity Sent. ap3 13:34 No provider procedures requiring assistance completed. IV discontinued, intact, ap3 bleeding controlled, No redness/swelling at site. Pressure dressing applied. Administered Medications: 11:11 Drug: Ondansetron IVP 4 mg Route: IVP; Site: right antecubital; ap3 12:27 Follow up: Response: No adverse reaction ap3 11:11 Drug: NS 0.9% IV 1000 ml Route: IV; Rate: 1000 ml; Site: right antecubital; ap3 13:35 Follow up: IV Status: Completed infusion ap3 11:11 Drug: Famotidine IVP 20 mg Route: IVP; Site: right antecubital; ap3 12:27 Follow up: Response: No adverse reaction ap3 Medication: 09:50 VIS not applicable for this client. ap3 Outcome: 13:08 Discharge ordered by MD. gonzalez 13:34 Discharged to home ambulatory. ap3 13:34 Condition: good 13:34 Discharge instructions given to patient, Instructed on discharge instructions, follow up and referral plans. medication usage, Demonstrated understanding of instructions, follow-up care, medications, Prescriptions given X 1. 13:35 Patient left the ED. ap3 Signatures: Dispatcher [employer] EDMS Mela Oconnor, Rachele Meadows, RN RN ap3 Estrellita Linn, PAS PAS ts1
--- NOTE | 2022-10-22 13:09 | EDPHYS ---
Physician Documentation [facility] Name: John Peralta Age: 37 yrs Sex: Male : 1985 Arrival Date: 10/22/2022 Time: 09:29 Bed 7 Private MD: ED Physician Puneet Key HPI: 10/22 12:16 This 37 yrs old Male presents to ER via Ambulatory with complaints of Abdominal Pain, kb Chest Pain. 12:16 The patient presents to the emergency department with nausea, vomiting. Onset: The kb symptoms/episode began/occurred 2 day(s) ago. Possible causes: unknown. The symptoms are aggravated by nothing. The symptoms are alleviated by nothing. Associated signs and symptoms: Pertinent positives: nausea, vomiting, Pertinent negatives: abdominal pain, fever. Severity of symptoms: At their worst the symptoms were moderate in the emergency department the symptoms are unchanged. The patient has not experienced similar symptoms in the past. The patient has not recently seen a physician. Pt reports nausea and vomiting for 2 days. States he is unable to tolerate anything by mouth. Also reports chest pain that has been intermittent for one week.. Historical: - Allergies: 09:48 Sulfa (Sulfonamide Antibiotics); ap3 - Home Meds: 09:48 None [Active]; ap3 - PMHx: 09:48 heart disease; PE; cardiac arrest-2020; ap3 - Immunization history:: Client reports receiving the 1st dose of the Covid vaccine. - Social history:: Smoking status: Patient reports the use of cigarette tobacco products, smokes one pack cigarettes per day. Patient uses alcohol, on a daily basis. claims drinking about a 6 pack/day. ROS: 12:14 Constitutional: Negative for fever, chills, and weight loss. kb 12:14 Cardiovascular: Positive for chest pain, of the anterior aspect of left upper chest. 12:14 Abdomen/GI: Positive for nausea and vomiting, Negative for abdominal pain. 12:14 All other systems are negative. Exam: 09:55 Constitutional: This is a well developed, well nourished patient who is awake, alert, kb and in no acute distress. Head/Face: Normocephalic, atraumatic. ENT: Moist Mucous membranes Cardiovascular: Regular rate and rhythm with a normal S1 and S2. No gallops, murmurs, or rubs. No pulse deficits. Respiratory: Respirations even and unlabored. No increased work of breathing. Talking in full sentences Abdomen/GI: Soft, non-tender. No distention Skin: Warm, dry with normal turgor. Normal color. MS/ Extremity: Pulses equal, no cyanosis. Neurovascular intact. Full, normal range of motion. Neuro: Awake and alert, GCS 15, oriented to person, place, time, and situation. Moves all extremities. Normal gait. 09:55 ECG was reviewed by the Attending Physician. Vital Signs: 09:47 Pulse 90; Resp 19; Temp 99.1; Pulse Ox 97% ; Weight 109.77 kg; Height 6 ft. 0 in. ; ap3 Pain 3/10; 09:51 BP 147 / 107; ap3 10:11 BP 157 / 102; Pulse 92; Pulse Ox 99% on R/A; ap3 09:47 Body Mass Index 32.82 (109.77 kg, 182.88 cm) ap3 09:47 Pain Scale: Adult ap3 MDM: 09:40 Patient medically screened. kb 13:06 Differential diagnosis: gastritis, viral gastroenteritis, abnormal EKG, RI. Data kb reviewed: vital signs, nurses notes. Consideration of Admission/Observation Escalation of care including admission/observation considered. admission considered, but pain started one week ago and serial troponins normal. EKG normal. Test considered but Not performed: CT: CT chest to rule out pe considered, but d-dimer normal. Counseling: I had a detailed discussion with the patient and/or guardian regarding: the historical points, exam findings, and any diagnostic results supporting the discharge/admit diagnosis, lab results, radiology results, the need for outpatient follow up, a family practitioner, to return to the emergency department if symptoms worsen or persist or if there are any questions or concerns that arise at home. 10/22 09:45 Order name: Basic Metabolic Panel; Complete Time: 10:34 kb 10/22 09:45 Order name: CBC with Diff; Complete Time: 10:16 kb 10/22 09:45 Order name: D-Dimer; Complete Time: 10:16 kb 10/22 09:45 Order name: LFT's; Complete Time: 10:34 kb 10/22 09:45 Order name: Magnesium; Complete Time: 10:34 kb 10/22 09:45 Order name: NT PRO-BNP; Complete Time: 10:34 kb 10/22 09:45 Order name: Troponin HS; Complete Time: 10:34 kb 10/22 09:45 Order name: Lipase; Complete Time: 10:34 kb 10/22 12:26 Order name: Troponin High Sensitivity; Complete Time: 13:06 kb 10/22 09:45 Order name: XRAY Chest (1 view); Complete Time: 10:16 kb 10/22 09:45 Order name: EKG; Complete Time: 09:46 kb 10/22 09:45 Order name: Cardiac monitoring; Complete Time: 09:50 kb 10/22 09:45 Order name: EKG - Nurse/Tech; Complete Time: 09:50 kb 10/22 09:45 Order name: IV Saline Lock; Complete Time: 10:01 kb 10/22 09:45 Order name: Labs collected and sent; Complete Time: 10:01 kb 10/22 09:45 Order name: O2 Per Protocol; Complete Time: 09:50 kb 10/22 09:45 Order name: O2 Sat Monitoring; Complete Time: 09:50 kb 10/22 12:26 Order name: PO challenge; Complete Time: 13:21 kb EC:55 Rate is 94 beats/min. Rhythm is regular. QRS [place] is Normal. [place] interval is normal at kb 154 msec. QRS interval is normal at 86 msec. QT interval is normal at 447 msec. Administered Medications: 11:11 Drug: Ondansetron IVP 4 mg Route: IVP; Site: right antecubital; ap3 12:27 Follow up: Response: No adverse reaction ap3 11:11 Drug: NS 0.9% IV 1000 ml Route: IV; Rate: 1000 ml; Site: right antecubital; ap3 13:35 Follow up: IV Status: Completed infusion ap3 11:11 Drug: Famotidine IVP 20 mg Route: IVP; Site: right antecubital; ap3 12:27 Follow up: Response: No adverse reaction ap3 Disposition Summary: 10/22/22 13:08 Discharge Ordered Location: Home kb Condition: Stable kb Diagnosis - Nausea with vomiting, unspecified kb - Chest pain, unspecified kb Followup: kb - With: Emergency Department - When: As needed - Reason: Worsening of condition Followup: kb - With: Private Physician - When: 2 - 3 days - Reason: Recheck today's complaints, Continuance of care, Re-evaluation by your physician Discharge Instructions: - Discharge Summary Sheet kb - Nausea and Vomiting, Adult, [id number] kb - Nonspecific Chest Pain, Adult, [id number] kb Forms: - Work release form kb - Medication Reconciliation Form kb - Thank You Letter kb - Antibiotic Education kb - Prescription Opioid Use kb Prescriptions: - ondansetron 4 mg Oral Tablet,disintegrating - take 1 tablet by ORAL route every 6 hours As needed; 15 tablet; Refills: 0, kb Product Selection Permitted Signatures: Dispatcher [employer] EDMela Hsieh, CLINICAL REHABILITATION COORDINATOR-C CLINICAL REHABILITATION COORDINATOR-Rachele Stark, RN RN ap3
[2022-10-22 13:49] VITALS: TEMP 99.1
[2022-10-22 14:00] VITALS: BP 157/102; O2SAT 99
== END 2022-10-22 13:35 | disposition home or self-care (01) ==
LOC: ER 09:29
DX: R11.2 Nausea with vomiting, unspecified (principal); R07.9 Chest pain, unspecified; I51.9 Heart disease, unspecified; F17.210 Nicotine dependence, cigarettes, uncomplicated; Z88.2 Allergy status to sulfonamides; Z86.74 Personal history of sudden cardiac arrest
CPT/HCPCS: 85025; 80048; 36415; 83735; 85379; 80076; 84484 ×2; 83690; 83880; 71045; J2405; J7030; 96361; 96374; 96375; 99285